=== PATIENT | female | born 1995 | race Caucasian/White ===

== ENCOUNTER 2018-03-27 19:05 | Emergency (ER) | payer OTHER ==
[2018-03-27] MEDS ORDERED: SODIUM CHLORIDE 0.9% 1,000 ML IV ONE (20:54)
[2018-03-27 21:09] LABS: Basophils % (A) 0 %; Eosinophils # (A) 0.1 k/uL (0-0.7); Eosinophils % (A) 2 %; HCT 42.1 % (34.0-46.0); HGB 14.3 gm/dL (11.4-16.0); Lymphocytes # (A) 2.7 k/uL (1.0-4.8); Lymphocytes % (A) 31 %; MCH 29.2 pg (25.0-35.0); MCHC 33.8 g/dL (31.0-37.0); MCV 86.3 fL (80.0-100.0); Mean Platelet Volume 6.9; Monocytes # (A) 0.5 k/uL (0-1.0); Monocytes % (A) 5 %; Neutrophils # (A) 5.5 k/uL (1.3-7.7); Neutrophils % (A) 61 %; Platelet Count 305 k/uL (150-450); RBC 4.88 m/uL (3.80-5.40); RDW 13.1 % (11.5-15.5)
--- NOTE | 2018-03-27 21:16 | ED ---
Abdominal Pain HPI - General Chief Complaint: OB/Uterine Contractions Stated Complaint: 5 weeks Time Seen by Provider: 03/27/18 20:01 Source: patient Mode of arrival: ambulatory Limitations: no limitations - History of Present Illness Initial Comments: 23-year-old female patient presents to emergency department today for evaluation of spotting, superpubic cramping, and low back pain. Patient states that she did have a positive test about one week ago. Patient states that her last menstrual period was 02/19/2018. States that she is A1, miscarriage in September 2017. Patient states that she has been having supra pubic cramping since she found out she was . States that the spotting started earlier today. States it is very light and on the toilet paper only when she wipes. She is having urinary frequency, but denies dysuria or urinary urgency. Patient denies any recent rash, fever, chills, shortness breath, chest pain, nausea, vomiting, diarrhea, constipation, back pain, numbness, tingling, dizziness, weakness, hematuria, dysuria, urinary urgency, urinary frequency, headache, visual changes, or any other complaints. - Related Data Home Medications Medication Instructions Recorded Confirmed Levothyroxine Sodium [Synthroid] 125 mcg PO DAILY 06/26/14 03/27/18 Cholecalciferol [Vitamin D3] 1,000 unit PO DAILY 03/27/18 03/27/18 [id number] Acid 1 cap PO DAILY 03/27/18 03/27/18 [-U Capsule (formulary)] Allergies Allergy/AdvReac Type Severity Reaction Status Date / Time No Known Allergies Allergy Verified 03/27/18 20:05 Review of Systems ROS Statement: Those systems with pertinent positive or pertinent negative responses have been documented in the HPI. ROS Other: All systems not noted in ROS Statement are negative. Past Medical History Past Medical History: Thyroid Disorder History of Any Multi-Drug Resistant Organisms: None Reported Past Surgical History: Appendectomy Past Psychological History: Depression Smoking Status: Never smoker Past Alcohol Use History: None Reported Past Drug Use History: None Reported General Exam Limitations: no limitations General appearance: alert, in no apparent distress, other (This is a well- developed, well-nourished adult female patient in no acute distress. Vital signs upon presentation are temperature 98.3F, pulse 81, respirations 16, blood pressure 146/89, pulse ox 100% on room air.) Eye exam: Present: normal appearance, PERRL, EOMI. Absent: scleral icterus, conjunctival injection, periorbital swelling ENT exam: Present: normal exam, normal oropharynx, mucous membranes moist Respiratory exam: Present: normal lung sounds bilaterally. Absent: respiratory distress, wheezes, rales, rhonchi, stridor Cardiovascular Exam: Present: regular rate, normal rhythm, normal heart sounds. Absent: systolic murmur, diastolic murmur, rubs, gallop, clicks GI/Abdominal exam: Present: soft, normal bowel sounds. Absent: distended, tenderness, guarding, rebound, rigid Neurological exam: Present: alert, oriented X3, CN II-XII intact Psychiatric exam: Present: normal affect, normal mood Skin exam: Present: warm, dry, intact, normal color. Absent: rash Course Vital Signs 03/27/18 03/27/18 03/27/18 19:30 22:10 22:35 Temperature 98.3 F 98.1 F Pulse Rate 81 77 Respiratory 16 17 Rate Blood Pressure 146/89 150/83 O2 Sat by Pulse 100 99 Oximetry Medical Decision Making - Medical Decision Making 23-year-old female patient presented to the emergency department today for complaints of suprapubic abdominal cramping, low back pain, and spotting. Physical examination was relatively unremarkable. Labs reviewed and showed a hCG of 95. Ultrasound was obtained and showed no intrauterine at this time. I did discuss results and findings with the patient. We did discuss and versus early versus ectopic as a cause for her symptoms. She'll be given a prescription to have repeat hCG performed. She'll be instructed to follow-up with Dr. Emery who she has established care with in the past. Return parameters were discussed in detail. She verbalizes understanding and agrees with this plan. - Lab Data Result diagrams: 03/27/18 20:55 03/27/18 20:55 Lab Results 03/27/18 03/27/18 03/27/18 Range/Units 20:54 20:55 20:55 WBC 9.0 (3.8-10.6) k/uL RBC 4.88 (3.80-5.40) m/uL Hgb 14.3 (11.4-16.0) gm/dL Hct 42.1 (34.0-46.0) % MCV 86.3 (80.0-100.0) fL MCH 29.2 (25.0-35.0) pg MCHC 33.8 (31.0-37.0) g/dL RDW 13.1 (11.5-15.5) % Plt Count 305 (150-450) k/uL Neutrophils % 61 % Lymphocytes % 31 % Monocytes % 5 % Eosinophils % 2 % Basophils % 0 % Neutrophils # 5.5 (1.3-7.7) k/uL Lymphocytes # 2.7 (1.0-4.8) k/uL Monocytes # 0.5 (0-1.0) k/uL Eosinophils # 0.1 (0-0.7) k/uL Basophils # 0.0 (0-0.2) k/uL Sodium (137-145) mmol/L Potassium (3.5-5.1) mmol/L Chloride (98-107) mmol/L Carbon Dioxide (22-30) mmol/L Anion Gap mmol/L BUN (7-17) mg/dL Creatinine (0.52-1.04) mg/dL Est GFR (CKD-EPI)AfAm (>60 ml/min/1.73 sqM) Est GFR (CKD-EPI)NonAf (>60 ml/min/1.73 sqM) Glucose (74-99) mg/dL Calcium (8.4-10.2) mg/dL Total Bilirubin (0.2-1.3) mg/dL AST (14-36) U/L ALT (9-52) U/L Alkaline Phosphatase (38-126) U/L Total Protein (6.3-8.2) g/dL Albumin (3.5-5.0) g/dL HCG, Quant mIU/mL Urine Color Urine Appearance (Clear) Urine pH (5.0-8.0) Ur Specific [place] (1.001-1.035) Urine Protein (Negative) Urine Glucose (UA) (Negative) Urine Ketones (Negative) Urine Blood (Negative) Urine Nitrite (Negative) Urine Bilirubin (Negative) Urine Urobilinogen (<2.0) mg/dL Ur Leukocyte Esterase (Negative) Blood Type O Positive Blood Type Confirm O Positive Blood Type Recheck CABO Indicated 03/27/18 03/27/18 Range/Units 20:55 22:05 WBC (3.8-10.6) k/uL RBC (3.80-5.40) m/uL Hgb (11.4-16.0) gm/dL Hct (34.0-46.0) % MCV (80.0-100.0) fL MCH (25.0-35.0) pg MCHC (31.0-37.0) g/dL RDW (11.5-15.5) % Plt Count (150-450) k/uL Neutrophils % % Lymphocytes % % Monocytes % % Eosinophils % % Basophils % % Neutrophils # (1.3-7.7) k/uL Lymphocytes # (1.0-4.8) k/uL Monocytes # (0-1.0) k/uL Eosinophils # (0-0.7) k/uL Basophils # (0-0.2) k/uL Sodium 139 (137-145) mmol/L Potassium 3.8 (3.5-5.1) mmol/L Chloride 105 (98-107) mmol/L Carbon Dioxide 22 (22-30) mmol/L Anion Gap 12 mmol/L BUN 12 (7-17) mg/dL Creatinine 0.61 (0.52-1.04) mg/dL Est GFR (CKD-EPI)AfAm >90 (>60 ml/min/1.73 sqM) Est GFR (CKD-EPI)NonAf >90 (>60 ml/min/1.73 sqM) Glucose 88 (74-99) mg/dL Calcium 9.5 (8.4-10.2) mg/dL Total Bilirubin 0.3 (0.2-1.3) mg/dL AST 32 (14-36) U/L ALT 38 (9-52) U/L Alkaline Phosphatase 70 (38-126) U/L Total Protein 7.5 (6.3-8.2) g/dL Albumin 4.4 (3.5-5.0) g/dL HCG, Quant 97.5 mIU/mL Urine Color Yellow Urine Appearance Clear (Clear) Urine pH 6.5 (5.0-8.0) Ur Specific [place] 1.018 (1.001-1.035) Urine Protein Negative (Negative) Urine Glucose (UA) Negative (Negative) Urine Ketones Negative (Negative) Urine Blood Negative (Negative) Urine Nitrite Negative (Negative) Urine Bilirubin Negative (Negative) Urine Urobilinogen <2.0 (<2.0) mg/dL Ur Leukocyte Esterase Negative (Negative) Blood Type Blood Type Confirm Blood Type Recheck - Radiology Data Radiology results: report reviewed, image reviewed Ultrasound obtained, report was reviewed in its entirety. Impression by Dr. Gallagher shows no adnexal mass or free fluid. No evidence of a gestational sac. No intrauterine seen at this time. Disposition Clinical Impression: Early stage of , Abdominal pain during , Threatened miscarriage Disposition: HOME SELF-CARE Condition: Good Instructions: Threatened Miscarriage (ED), Abdominal Pain in (ED), First Trimester Vaginal Bleed (ED) Additional Instructions: Follow-up with your [facility] for recheck as soon as possible. Increase fluids. Return here immediately for any new, worsening, or concerning symptoms. Is patient prescribed a controlled substance at d/c from ED?: No Referrals: Lynn Carranza MD [Primary Care Provider] - 1-2 days Time of Disposition: 22:23
[2018-03-27 21:18] LABS: ALT 38 U/L (9-52); AST 32 U/L (14-36); Albumin 4.4 g/dL (3.5-5.0); Alkaline Phosphatase 70 U/L (38-126); Anion Gap 12 mmol/L; Blood Urea Nitrogen 12 mg/dL (7-17); Calcium 9.5 mg/dL (8.4-10.2); Carbon Dioxide 22 mmol/L (22-30); Chloride 105 mmol/L (98-107); Glucose 88 mg/dL (74-99); Potassium 3.8 mmol/L (3.5-5.1); Sodium 139 mmol/L (137-145); Total Bilirubin 0.3 mg/dL (0.2-1.3); Total Protein 7.5 g/dL (6.3-8.2)
[2018-03-27 21:34] LABS: HCG,Quantitative Serum 97.5 mIU/mL
--- NOTE | 2018-03-27 21:47 | US ---
EXAMINATION TYPE: Transabdominal DATE OF EXAM: 11/19/17 COMPARISON: NONE CLINICAL HISTORY: Pain. Cramping and spotting EXAM PERFORMED: Transabdominal (TA) EXAM MEASUREMENTS: GESTATIONAL AGE / DATING Physician Established: Not yet established Dates by LMP: (5 weeks/1 days) EDC: 11/26/2018 Dates by First Scan: No previous this is first scan Dates by Current Scan for: No IUP seen at this time MATERNAL ANATOMY Uterus: 10.3 x 4.8 x 4.7 cm Right Ovary: 2.7 x 1.8 x 2.3 cm Left Ovary: 2.4 x 1.9 x 2.6 cm Post CDS / Adnexa: wnl Presence of free fluid: no Presence of corpus luteal cyst: no GESTATION / SURVEY IUP: No IUP seen at this time No IUP seen at this time. IMPRESSION: No adnexal mass or free fluid. No evidence of a gestational sac.
[2018-03-27 22:11] LABS: Appearance,Urine Clear (Clear); Bilirubin,Urine Negative (Negative); Blood,Urine Negative (Negative); Color,Urine Yellow; Glucose,Urine (UA) Negative (Negative); Ketones,Urine Negative (Negative); Leukocyte Esterase,Urine Negative (Negative); Nitrite,Urine Negative (Negative); PH, Urine 6.5 (5.0-8.0); Protein,Urine Negative (Negative); Specific Gravity,Urine 1.018 (1.001-1.035); Urobilinogen,Urine <2.0 mg/dL (<2.0)
[2018-03-27 22:12] VITALS: BP 150/83; PULSE 77; RESP 17
[2018-03-27 22:36] VITALS: TEMP 98.1
== END 2018-03-27 22:45 | disposition home or self-care (01) ==
LOC: EC 19:05
DX: O20.0 Threatened abortion (principal); O99.89 Other specified diseases and conditions complicating pregnancy, childbirth and the puerperium; R35.0 Frequency of micturition; O99.281 Endocrine, nutritional and metabolic diseases complicating pregnancy, first trimester; E07.9 Disorder of thyroid, unspecified; Z3A.01 Less than 8 weeks gestation of pregnancy; Z79.899 Other long term (current) drug therapy
CPT/HCPCS: 36415; 76801; 80053; 81003; 84702; 85025; 86900; 86901; 96360; 99284

== ENCOUNTER → 2018-03-31 | Outpatient (CLI) | payer OTHER | END | disposition home or self-care (01) | LOC: LABWHC1 12:24 | PROVIDERS: ATTEND Obstetrics & Gynecology | DX: Z34.80 Encounter for supervision of other normal pregnancy, unspecified trimester (principal); Z3A.00 Weeks of gestation of pregnancy not specified | CPT/HCPCS: 36415; 84702 ==

== ENCOUNTER 2018-05-04 06:01 | Emergency (ER) | payer OTHER ==
[2018-05-04 06:40] LABS: Basophils % (A) 0 %; Eosinophils # (A) 0.2 k/uL (0-0.7); Eosinophils % (A) 2 %; HCT 42.4 % (34.0-46.0); HGB 13.7 gm/dL (11.4-16.0); Lymphocytes # (A) 2.5 k/uL (1.0-4.8); Lymphocytes % (A) 31 %; MCH 29.1 pg (25.0-35.0); MCHC 32.4 g/dL (31.0-37.0); MCV 89.8 fL (80.0-100.0); Mean Platelet Volume 6.5; Monocytes # (A) 0.4 k/uL (0-1.0); Monocytes % (A) 4 %; Neutrophils % (A) 61 %; Platelet Count 326 k/uL (150-450); RBC 4.73 m/uL (3.80-5.40); WBC 8.2 k/uL (3.8-10.6)
[2018-05-04 06:57] LABS: Anion Gap 8 mmol/L; Blood Urea Nitrogen 11 mg/dL (7-17); Calcium 9.8 mg/dL (8.4-10.2); Carbon Dioxide 24 mmol/L (22-30); Chloride 106 mmol/L (98-107); Glucose 97 mg/dL (74-99); Potassium 4.1 mmol/L (3.5-5.1); Sodium 138 mmol/L (137-145)
[2018-05-04 07:01] VITALS: BP 155/73; PULSE 79; RESP 16; TEMP 98.1
--- NOTE | 2018-05-04 07:03 | ED ---
General Adult HPI - General Chief complaint: Urogenital Stated complaint: Poss miscarriage Time Seen by Provider: 05/04/18 06:27 Source: patient Mode of arrival: ambulatory Limitations: no limitations - History of Present Illness Initial comments: Bre is a female currently 9 weeks who presents the ED today for evaluation of vaginal bleeding. Patient reports that she's been in her usual state of health, she had a transvaginal ultrasound at her OBs office last week which confirmed a single intrauterine at 8 weeks and 1 day. She reports that she's been doing well since that time. She has been experiencing daily nausea and mild vomiting. As well as persistent cramping throughout this which her OB has advised her is normal. Patient reports that she woke this morning and passed a small blood clot. She reports she's had only minimal bleeding. She it was not enough to even wear a menstrual pad. However, considering her history of miscarriage she became very anxious and decided to come to the ER for evaluation. She reports that she was last sexually active 2 days ago. She has no concern for sexual transmitted infection. - Related Data Home Medications Medication Instructions Recorded Confirmed Levothyroxine Sodium [Synthroid] 125 mcg PO DAILY 06/26/14 03/27/18 Cholecalciferol [Vitamin D3] 1,000 unit PO DAILY 03/27/18 03/27/18 [id number] Acid 1 cap PO DAILY 03/27/18 03/27/18 [-U Capsule (formulary)] Allergies Allergy/AdvReac Type Severity Reaction Status Date / Time No Known Allergies Allergy Verified 05/04/18 06:06 Review of Systems ROS Statement: Those systems with pertinent positive or pertinent negative responses have been documented in the HPI. ROS Other: All systems not noted in ROS Statement are negative. Past Medical History Past Medical History: Thyroid Disorder History of Any Multi-Drug Resistant Organisms: None Reported Past Surgical History: Appendectomy Past Psychological History: Depression Smoking Status: Never smoker Past Alcohol Use History: None Reported Past Drug Use History: None Reported General Exam - General Exam Comments Initial Comments: GENERAL: Patient is well-developed and well-nourished. Patient is nontoxic and well- hydrated and is in no distress. Obese HENT: Normocephalic, Atraumatic. EYES: The sclera were anicteric and conjunctiva were pink and moist. Extraocular movements were intact and pupils were equal round and reactive to light. Eyelids were unremarkable. PULMONARY: Unlabored respirations. Good breath sounds bilaterally. No audible rales rhonchi or wheezing was noted. CARDIOVASCULAR: There is a regular rate and rhythm without any murmurs gallops or rubs. ABDOMEN: Soft and nontender with normal bowel sounds. SKIN: Skin is clear with no lesions or rashes and otherwise unremarkable. : Normal external vaginal exam, vaginal canal with no injury lacerations or bleeding, cervical os is closed. There are small blood clots within the vaginal canal. No active bleeding was noted NEUROLOGIC: Patient is alert and oriented x3. Cranial nerves II through XII are grossly intact. Motor and sensory are also intact. Normal speech, volume and content. Symmetrical smile. MUSCULOSKELETAL: Normal extremities with adequate strength and full range of motion. No lower extremity swelling or edema. No calf tenderness. LYMPHATICS: No significant lymphadenopathy is noted PSYCHIATRIC: Normal psychiatric evaluation. Limitations: no limitations Limitations: no limitations Course Vital Signs 05/04/18 05/04/18 06:04 06:59 Temperature 98.3 F 98.1 F Pulse Rate 100 79 Respiratory 24 16 Rate Blood Pressure 142/90 155/73 O2 Sat by Pulse 96 98 Oximetry Medical Decision Making - Medical Decision Making Patient was seen and evaluated, history is obtained from the patient Patient 9 weeks with small amount of vaginal bleeding Pelvic exam reveals dark blood and vaginal vault, no active bleeding, cervix is closed Bedside ultrasound confirms a single intrauterine fetus, cardiac activity was visible - the patient her significant other and her mother were able to see the fetus and hear the heartbeat on ultrasound Considering the patient had a transvaginal ultrasound which revealed no evidence of ectopic as well as a single intrauterine last week I have no concern for ectopic . The patient's not having any pain or discomfort. Pelvic exam reveals a closed cervix and bedside ultrasound reveals a fetus with a heart rate. I advised the patient to maintain pelvic rest, no more sexual activity. Follow- up with Dr. Emery on Saturday for reevaluation. All questions pertaining to care were answered best my ability patient was discharged home in stable condition. Return parameters were discussed and the patient was discharged home. - Lab Data Result diagrams: 05/04/18 06:25 Lab Results 09/16/18 09/16/18 09/16/18 Range/Units 06:25 06:25 06:54 WBC 8.2 (3.8-10.6) k/uL RBC 4.73 (3.80-5.40) m/uL Hgb 13.7 (11.4-16.0) gm/dL Hct 42.4 (34.0-46.0) % MCV 89.8 (80.0-100.0) fL MCH 29.1 (25.0-35.0) pg MCHC 32.4 (31.0-37.0) g/dL RDW 13.0 (11.5-15.5) % Plt Count 326 (150-450) k/uL Neutrophils % 61 % Lymphocytes % 31 % Monocytes % 4 % Eosinophils % 2 % Basophils % 0 % Neutrophils # 5.0 (1.3-7.7) k/uL Lymphocytes # 2.5 (1.0-4.8) k/uL Monocytes # 0.4 (0-1.0) k/uL Eosinophils # 0.2 (0-0.7) k/uL Basophils # 0.0 (0-0.2) k/uL Urine Color Yellow Urine Appearance Cloudy H (Clear) Urine pH 5.5 (5.0-8.0) Ur Specific [place] 1.018 (1.001-1.035) Urine Protein Negative (Negative) Urine Glucose (UA) Negative (Negative) Urine Ketones Negative (Negative) Urine Blood Large H (Negative) Urine Nitrite Negative (Negative) Urine Bilirubin Negative (Negative) Urine Urobilinogen <2.0 (<2.0) mg/dL Ur Leukocyte Esterase Negative (Negative) Urine RBC 1 (0-5) /hpf Urine WBC 1 (0-5) /hpf Ur Squamous Epith Cells 4 (0-4) /hpf Urine Bacteria Rare H (None) /hpf Urine Mucus Rare H (None) /hpf Blood Type O Positive Blood Type Recheck No Disposition Clinical Impression: Vaginal bleeding in patient at less than 20 weeks gestation Disposition: HOME SELF-CARE Condition: Good Instructions: Threatened Miscarriage (ED) Is patient prescribed a controlled substance at d/c from ED?: No Referrals: Lynn Carranza MD [Primary Care Provider] - 1-2 days Blanca Emery DO [Doctor of Osteopathic Medicine] - 1-2 days Time of Disposition: 07:16
[2018-05-04 07:08] LABS: Appearance,Urine Cloudy (Clear); Bacteria,Urine Rare /hpf; Bilirubin,Urine Negative (Negative); Blood,Urine Large (Negative); Color,Urine Yellow; Glucose,Urine (UA) Negative (Negative); Ketones,Urine Negative (Negative); Leukocyte Esterase,Urine Negative (Negative); Mucus,Urine Rare /hpf; Nitrite,Urine Negative (Negative); PH, Urine 5.5 (5.0-8.0); Protein,Urine Negative (Negative); RBC,Urine 1 /hpf (0-5); Specific Gravity,Urine 1.018 (1.001-1.035); Squamous Epithelial Cell,Urine 4 /hpf (0-4); Urobilinogen,Urine <2.0 mg/dL (<2.0); WBC,Urine 1 /hpf (0-5)
[2018-05-04 07:38] LABS: HCG,Quantitative Serum 49281.1 mIU/mL
== END 2018-05-04 07:22 | disposition home or self-care (01) ==
LOC: EC 06:01
DX: O20.9 Hemorrhage in early pregnancy, unspecified (principal); Z3A.09 9 weeks gestation of pregnancy
CPT/HCPCS: 36415; 80048; 81001; 84702; 85025; 86900; 86901; 99284

== ENCOUNTER 2018-09-03 15:08 | Outpatient (CLI) | payer OTHER ==
[2018-09-03 16:27] VITALS: BP 116/57; PULSE 86; RESP 16; TEMP 98.1
--- NOTE | 2018-09-03 23:13 | P.MSEPDOC ---
Presenting Problems - Arrival Data Date of Arrival on Unit: 09/03/18 Time of Arrival on Unit: 15:11 Mode of Transport: Ambulatory - Complaint Comment: lower abd pain Medical History - Information : 1 Para: 0 Term: 0 : 0 Abortions: Spontaneous or Elective: 0 Number of Living Children: 0 - Gestational Age Gestational Age by EM (wks/days): 27 Weeks and 2 Days Review of Systems - Review of Systems Constitutional: No problems Breast: No problems ENT: No problems Cardiovascular: No problems Respiratory: No problems Gastrointestinal: No problems Genitourinary: No problems Musculoskeletal: No problems Neurological: No problems Skin: No problems Vital Signs - Temperature Temperature: 98.1 F Temperature Source: Temporal Artery Scan - Pulse Right Brachial Pulse Rate: 86 Pulse Assessment Method: Automatic Cuff - Respirations Respiratory Rate: 16 Oxygen Delivery Method: Room Air - Blood Pressure Right Arm Blood Pressure: 116/57 Blood Pressure Mean: 76 Blood Pressure Source: Automatic Cuff Medical Screen Scoring (Pre) - Cervical Exam Dilation: Exam Deferred Effacement: Exam Deferred - Uterine Contractions Frequency: N/A Duration: N/A Intensity: N/A - Maternal Vital Signs Maternal Temperature: N/A Maternal Blood Pressure: N/A Signs of Preeclampsia: N/A Maternal Respirations: N/A - Pain Assessment Pain Scale Used: Numeric (1 - 10) Pain Intensity: 4 - Assessment Heart Rate - NICHD Category: Category I (Normal) = 0 NST: Reactive Position: N/A, Non-vertex & not laboring = 3 - Total Score Total Score (Pre): 3 - Level of Risk Level of Risk: Low (0-5) Physician Notification (Pre) - Physician Notified Physician Notified Date: 09/03/18 Physician Notified Time: 15:55 Physician/Practitioner Notifed:: ofelia Spoke With: ofelia New Order Received: Yes - Notification Comment Comment: discharge home with instruction on comfort measures r/t discomforts of Disposition - Disposition OB Disposition: Discharge to home Discharge Date: 09/03/18 Discharge Time: 15:59 I agree with the RN Medical Screening Exam: Yes Physician's MSE Comment: round ligament pain. I sent pt over after she called the office due to decreased movement. When she came to triage, she said she was feeling baby move but having pain in her bilateral groin, worse with walking and standing. Risk & Benefit of care provided described in d/c instruction: Yes Diagnosis: OTHER SPECIFIED COMPLICATIONS OF LABOR AND DELIVERY
== END 2018-09-03 15:59 | disposition home or self-care (01) ==
LOC: FBPOP 15:08
PROVIDERS: ATTEND Obstetrics & Gynecology
DX: O75.89 Other specified complications of labor and delivery (principal); Z3A.27 27 weeks gestation of pregnancy
CPT/HCPCS: 99213

== ENCOUNTER 2018-11-13 11:06 | Outpatient (CLI) | payer OTHER ==
[2018-11-13 13:18] VITALS: BP 130/86; PULSE 86; RESP 18; TEMP 97.8
--- NOTE | 2018-11-17 10:00 | P.MSEPDOC ---
Presenting Problems - Arrival Data Date of Arrival on Unit: 11/13/18 Time of Arrival on Unit: 11:05 Mode of Transport: Wheelchair - Complaint OB-Reason for Admission/Chief Complaint: Possible Onset of Labor Comment: pt c/o contractions Medical History - Information : 2 Para: 0 Term: 0 : 0 Abortions: Spontaneous or Elective: 1 Number of Living Children: 0 - Gestational Age Gestational Age by EM (wks/days): 37 Weeks and 0 Days Review of Systems - Review of Systems Constitutional: No problems Breast: No problems ENT: No problems Cardiovascular: No problems Respiratory: No problems Gastrointestinal: No problems Genitourinary: No problems Musculoskeletal: No problems Neurological: No problems Skin: No problems Vital Signs - Temperature Temperature: 97.8 F Temperature Source: Temporal Artery Scan - Pulse Right Brachial Pulse Rate: 86 Pulse Assessment Method: Automatic Cuff - Respirations Respiratory Rate: 18 Oxygen Delivery Method: Room Air O2 Sat by Pulse Oximetry: 100 - Blood Pressure Right Arm Blood Pressure: 130/86 Blood Pressure Mean: 100 Blood Pressure Source: Automatic Cuff Medical Screen Scoring (Pre) - Cervical Exam Dilation: 1-3 cm = 1 Effacement: Exam Deferred Membranes: Intact - Uterine Contractions Frequency: > or = 36 weeks =2 Duration: N/A Intensity: N/A - Maternal Vital Signs Maternal Temperature: N/A Maternal Blood Pressure: N/A Signs of Preeclampsia: N/A Maternal Respirations: N/A - Pain Assessment Pain Scale Used: Numeric (1 - 10) Pain Intensity: 5 Pain Management Goal: 2 Pain Description: *Acute, Cramping, Pressure, Tightness Pain Radiation Location: none Pain Frequency: Intermittent Pain Duration: 2 Pain Duration Units: Hours Pain Behavior: None Exhibited, Vocalization Pain Aggravating Factors: Contractions - Maternal Trauma Maternal Trauma: N/A - Assessment Baseline FHR: 135 Heart Rate - NICHD Category: Category I (Normal) = 0 NST: Reactive Position: N/A Station: N/A - Total Score Total Score (Pre): 3 - Level of Risk Level of Risk: Low (0-5) Physician Notification (Pre) - Physician Notified Physician Notified Date: 11/13/18 Physician Notified Time: 12:30 Physician/Practitioner Notifed:: Dr. Emery Spoke With: Dr. Emery New Order Received: Yes - Notification Comment Comment: discharge pt home, follow up at next scheduled appt Disposition - Disposition OB Disposition: Triage, Discharge to home, Written follow up instructions reviewed Discharge Date: 11/13/18 Discharge Time: 12:40 I agree with the RN Medical Screening Exam: Yes Risk & Benefit of care provided described in d/c instruction: Yes Diagnosis: FALSE LABOR BEFORE 37 COMPLETED WEEKS OF GEST, SECOND TRI
== END 2018-11-13 12:40 | disposition home or self-care (01) ==
LOC: FBPOP 11:06
PROVIDERS: ATTEND Obstetrics & Gynecology
DX: O47.1 False labor at or after 37 completed weeks of gestation (principal); Z3A.37 37 weeks gestation of pregnancy
CPT/HCPCS: 59025; G0463; 99213

== ENCOUNTER 2018-11-16 06:31 | Outpatient (CLI) | payer OTHER ==
[2018-11-16 07:07] VITALS: BP 137/81; PULSE 73; RESP 18; TEMP 98.2
--- NOTE | 2018-11-17 07:18 | P.MSEPDOC ---
Presenting Problems - Arrival Data Date of Arrival on Unit: 11/16/18 Time of Arrival on Unit: 06:31 Mode of Transport: Wheelchair - Complaint OB-Reason for Admission/Chief Complaint: Possible Onset of Labor Comment: contractions 5 min apart since 414 Medical History - Information : 2 Para: 0 Term: 0 : 0 Abortions: Spontaneous or Elective: 1 Number of Living Children: 0 - Gestational Age Gestational Age by EM (wks/days): 37 Weeks and 3 Days Review of Systems - Review of Systems Constitutional: No problems Breast: No problems ENT: No problems Cardiovascular: No problems Respiratory: No problems Gastrointestinal: No problems Genitourinary: No problems Musculoskeletal: No problems Neurological: No problems Skin: No problems Vital Signs - Temperature Temperature: 98.2 F Temperature Source: Temporal Artery Scan - Pulse Right Brachial Pulse Rate: 73 - Respirations Respiratory Rate: 18 Oxygen Delivery Method: Room Air O2 Sat by Pulse Oximetry: 99 - Blood Pressure Right Arm Blood Pressure: 137/81 Blood Pressure Mean: 99 Blood Pressure Source: Automatic Cuff Medical Screen Scoring (Pre) - Cervical Exam Dilation: 1-3 cm = 1 Membranes: Intact - Uterine Contractions Frequency: > or = 36 weeks =2 Duration: > 40 seconds = 2 - Maternal Vital Signs Maternal Temperature: N/A Maternal Blood Pressure: N/A Signs of Preeclampsia: N/A Maternal Respirations: N/A - Pain Assessment Pain Location and Character: Abdomen Pain Scale Used: Numeric (1 - 10) Pain Intensity: 5 Pain Description: *Acute, Tightness Pain Frequency: Intermittent Pain Duration: 2 Pain Duration Units: Hours Pain Behavior: None Exhibited Pain Aggravating Factors: Contractions - Maternal Trauma Maternal Trauma: N/A - Assessment Baseline FHR: 125 Heart Rate - NICHD Category: Category I (Normal) = 0 NST: Reactive Position: N/A Station: N/A - Total Score Total Score (Pre): 5 - Level of Risk Level of Risk: Low (0-5) Physician Notification (Post) - Physician Notified Physician Notified Date: 11/16/18 Physician Notified Time: 07:15 Physician/Practitioner Notified:: moris Spoke With: moris New Order Received: Yes - Notification Comment Comment: pt to be monitored for one hour from first cervical exam, recheck cervix and pt may be discharged home with instruction if no change. call dr with any change. Disposition - Disposition OB Disposition: Discharge to home Discharge Date: 11/16/18 Discharge Time: 07:57 I agree with the RN Medical Screening Exam: Yes Risk & Benefit of care provided described in d/c instruction: Yes Diagnosis: FALSE LABOR AT OR AFTER 37 COMPLETED WEEKS OF GESTATION
== END 2018-11-16 08:14 | disposition home or self-care (01) ==
LOC: FBPOP 06:31
PROVIDERS: ATTEND Obstetrics & Gynecology
DX: O47.1 False labor at or after 37 completed weeks of gestation (principal); Z3A.37 37 weeks gestation of pregnancy
CPT/HCPCS: 59025; G0463; 99213

== ENCOUNTER 2018-11-18 14:13 | Inpatient (IN) | payer OTHER ==
[2018-11-18 15:22] LABS: ALT 13 U/L (9-52); AST 16 U/L (14-36); Blood Urea Nitrogen 7 mg/dL (7-17); LDH 403 U/L (313-618); Uric Acid 5.8 mg/dL (3.7-7.4)
[2018-11-18 15:23] LABS: Basophils % (A) 0 %; Eosinophils # (A) 0.1 k/uL (0-0.7); Eosinophils % (A) 1 %; HCT 36.1 % (34.0-46.0); Lymphocytes # (A) 1.1 k/uL (1.0-4.8); Lymphocytes % (A) 11 %; MCH 29.8 pg (25.0-35.0); MCHC 33.4 g/dL (31.0-37.0); MCV 89.4 fL (80.0-100.0); Mean Platelet Volume 7.4; Monocytes # (A) 0.5 k/uL (0-1.0); Monocytes % (A) 5 %; Neutrophils % (A) 82 %; Platelet Count 299 k/uL (150-450); RBC 4.03 m/uL (3.80-5.40); RDW 13.6 % (11.5-15.5); WBC 9.8 k/uL (3.8-10.6)
[2018-11-18 15:29] LABS: Appearance,Urine Cloudy (Clear); Bacteria,Urine Few /hpf; Bilirubin,Urine Negative (Negative); Blood,Urine Trace (Negative); Color,Urine Yellow; Glucose,Urine (UA) Negative (Negative); Ketones,Urine Negative (Negative); Leukocyte Esterase,Urine Large (Negative); Mucus,Urine Few /hpf; Nitrite,Urine Negative (Negative); Protein,Urine 1+ (Negative); RBC,Urine 3 /hpf (0-5); Specific Gravity,Urine 1.026 (1.001-1.035); Squamous Epithelial Cell,Urine 20 /hpf (0-4); Urobilinogen,Urine <2.0 mg/dL (<2.0); WBC,Urine 8 /hpf (0-5)
[2018-11-18 15:30] VITALS: BMI 58.6
[2018-11-18 15:47] LABS: INR 0.9 (<1.2); Partial Thromboplastin Time 27.2 sec (22.0-30.0); Prothrombin Time 9.4 sec (9.0-12.0)
[2018-11-18] MEDS ORDERED: ACETAMINOPHEN TAB 325 MG TAB PO STA (23:45)
[2018-11-19] MEDS ORDERED: CARBOPROST TROMETHAMINE 250 MCG/ML 1 ML AMP IM PRN (05:43)
[2018-11-19] MEDS ORDERED: LIDOCAINE 0.5% (PF) 5 MG/ML (50 ML SDV) SQ PRN (05:43)
[2018-11-19] MEDS ORDERED: METHYLERGONOVINE 0.2 MG/ML 1 ML AMP IM PRN (05:43)
[2018-11-19] MEDS ORDERED: OXYTOCIN 10 UNIT/ML 1 ML VIAL IM PRN (05:43)
[2018-11-19] MEDS ORDERED: TERBUTALINE 1 MG/ML VIAL SQ PRN (05:43)
[2018-11-19] MEDS ORDERED: OXYTOCIN 30 UNITS/500 ML NS 30 UNIT in SALINE 1 500ML.BAG IV SCH (05:45)
[2018-11-19] MEDS ORDERED: LACTATED RINGERS 1,000 ML IV SCH (05:45)
[2018-11-19] MEDS: LACTATED RINGERS 1,000 ML IV SCH (06:05)
[2018-11-19] MEDS ORDERED: ACETAMINOPHEN TAB 325 MG TAB PO STA (08:02)
[2018-11-19] MEDS ORDERED: ROPIVACAINE 5MG/ML 20ML VIAL ONE (11:41)
[2018-11-19] MEDS ORDERED: fentaNYL (PF) 50 MCG/ML 5 ML AMP ONE (11:41)
[2018-11-19] MEDS ORDERED: SODIUM CHLORIDE 0.9% 100 ML BAG ONE (11:41)
--- NOTE | 2018-11-19 16:40 | P.HPOB ---
History of Present Illness H&P Date: 11/19/18 Chief Complaint: GEstational hypertension 23-year-old presented to my office at 37 weeks and 5 days with elevated blood pressure. Her first pressure was 160/90, her second pressure was 150/100. I sent her to [facility] for admission and preeclamptic labs. The labs were all within normal limits. She was diagnosed with gestational hypertension and admitted for delivery considering she is over 37 weeks. heart tones 130 with moderate variability and reactive, category 1 tracing. Her cervix was 1 cm dilated, 80% effaced, and -3 station. Review of Systems All systems: negative Constitutional: Denies chills, Denies fever Eyes: denies blurred vision, denies pain Ears, nose, mouth and throat: Denies headache, Denies sore throat Cardiovascular: Denies chest pain, Denies shortness of breath Respiratory: Denies cough Gastrointestinal: Denies abdominal pain, Denies diarrhea, Denies nausea, Denies vomiting Genitourinary: Denies dysuria, Denies hematuria Musculoskeletal: Denies myalgias Integumentary: Denies pruritus, Denies rash Neurological: Denies numbness, Denies weakness Psychiatric: Denies anxiety, Denies depression Endocrine: Denies fatigue, Denies weight change Past Medical History Past Medical History: Thyroid Disorder Additional Past Medical History / Comment(s): Obstetric history: First was a spontaneous . This is her second . She's had care with me since 8 weeks gestation. Blood type is O+, and weighs negative, rubella nonimmune, RPR nonreactive, hepatitis B negative, HIV nonreactive. Her thyroid was not under control to beginning of the but I did increase her medication and it came down to normal. She had a normal maternity 21 but that also so that she was having a female baby, ultrasound said she is having a male fetus. GBS negative. History of Any Multi-Drug Resistant Organisms: None Reported Past Surgical History: Appendectomy Past Anesthesia/Blood Transfusion Reactions: No Reported Reaction Past Psychological History: Depression Smoking Status: Never smoker Past Alcohol Use History: None Reported Past Drug Use History: None Reported - Past Family History Mother Family Medical History: Hypertension, Thyroid Disorder Medications and Allergies Home Medications Medication Instructions Recorded Confirmed Type Levothyroxine Sodium [Synthroid] 50 mcg PO DAILY 06/26/14 11/18/18 History Cholecalciferol [Vitamin D3] 1,000 unit PO DAILY 03/27/18 11/18/18 History Fdk-Njih-Mufea Acid 1 cap PO DAILY 03/27/18 11/18/18 History [-U Capsule (formulary)] Allergies Allergy/AdvReac Type Severity Reaction Status Date / Time No Known Allergies Allergy Verified 11/18/18 14:40 Exam Osteopathic Statement: *. No significant issues noted on an osteopathic structural exam other than those noted in the History and Physical/Consult. Heart: Regular rate and rhythm Lungs: Clear to auscultation bilaterally Abdomen: Soft, nontender Extremities: Negative Homans sign, reflexes 2+ Results Result Diagrams: 11/18/18 14:55 11/18/18 14:55 Assessment and Plan (1) Gestational hypertension Current Visit: Yes Status: Acute Code(s): O13.9 - GESTATIONAL HTN W/O SIGNIFICANT PROTEINURIA, UNSP TRIMESTER SNOMED Code(s): 420731859 (2) 37 weeks gestation of Current Visit: Yes Status: Acute Code(s): Z3A.37 - 37 WEEKS GESTATION OF SNOMED Code(s): 52953351 Plan: 1. Admit to [facility] 2. Planned induction of labor with amniotomy and Pitocin. 3. Monitor blood pressure closely
--- NOTE | 2018-11-19 16:42 | P.PROBDLV ---
Vaginal Delivery Note - . Vaginal Delivery Note: 23-year-old presented to my office at 37 weeks and 5 days with elevated blood pressure. Her first pressure was 160/90, her second pressure was 150/100. I sent her to [facility] for admission and preeclamptic labs. The labs were all within normal limits. She was diagnosed with gestational hypertension and admitted for delivery considering she is over 37 weeks. heart tones 130 with moderate variability and reactive, category 1 tracing. Her cervix was 1 cm dilated, 80% effaced, and -3 station. Pitocin was started, amniotomy was performed at 7:51 AM and clear fluid noted. When she was 3 cm dilated she did get an epidural. Her cervix was completely dilated at 1611. She pushed, and delivered a viable male infant over intact perineum under epidural anesthesia at 1618. Head delivered OA, nuchal cord 1 easily reduced, anterior shoulder delivered gentle downward guidance followed by posterior shoulder and rest of body. Nose and mouth bulb suctioned, cord clamped and cut, placed on mother's abdomen. Apgars 8, 9, weight 6 lbs. 2 oz. Placenta delivered spontaneously, intact with three-vessel cord at 1621. Vagina, cervix, perineum inspected. Small right labial laceration was repaired with 3-0 Vicryl. Estimated blood loss 200 mL. Mother and baby in stable condition.
[2018-11-19] MEDS ORDERED: diphenhydrAMINE 25 MG CAP PO PRN (18:35)
[2018-11-19] MEDS ORDERED: WITCH HAZEL 1 EACH MED..PAD TOPICAL PRN (18:35)
[2018-11-19] MEDS ORDERED: LANOLIN CREAM 5 GM TUBE TOPICAL PRN (18:35)
[2018-11-19] MEDS ORDERED: diphenhydrAMINE 50 MG CAP PO PRN (18:35)
[2018-11-19] MEDS ORDERED: BENZOCAINE/MENTHOL SPRAY 1 GM/SPRAY AEROSOL TOPICAL PRN (18:35)
[2018-11-19] MEDS ORDERED: SIMETHICONE 80 MG CHEWABLE PO PRN (18:35)
[2018-11-19] MEDS ORDERED: ZOLPIDEM 5 MG TAB PO PRN (18:35)
[2018-11-19] MEDS ORDERED: diphenhydrAMINE 50 MG/ML 1 ML VIAL IVP PRN ×2 (18:35)
[2018-11-20] MEDS: IBUPROFEN 600 MG TAB PO PRN ×3 (01:11→18:17)
[2018-11-20] MEDS: SENNOSIDES-DOCUSATE SODIUM 1 EACH TAB PO SCH ×3 (01:12→21:48)
[2018-11-20 07:39] LABS: Basophils % (A) 0 %; Eosinophils # (A) 0.1 k/uL (0-0.7); Eosinophils % (A) 1 %; HCT 31.9 % (34.0-46.0); HGB 10.8 gm/dL (11.4-16.0); Lymphocytes # (A) 1.7 k/uL (1.0-4.8); Lymphocytes % (A) 18 %; MCH 29.9 pg (25.0-35.0); MCHC 33.7 g/dL (31.0-37.0); MCV 88.5 fL (80.0-100.0); Mean Platelet Volume 7.9; Monocytes # (A) 0.7 k/uL (0-1.0); Monocytes % (A) 7 %; Neutrophils % (A) 73 %; Platelet Count 269 k/uL (150-450); RDW 14.2 % (11.5-15.5); WBC 9.6 k/uL (3.8-10.6)
--- NOTE | 2018-11-20 09:07 | P.PNOBGVD ---
Subjective - Subjective Principal diagnosis: S/P NVD PPD #1 Interval history: Patient seen and examined. Denies nausea, vomiting, chest pain, shortness of breath or calf pain. Patient reports: Reports appetite normal, Reports voiding normally, Reports pain well controlled, Reports ambulating normally : doing well Objective - Latest Vital Signs Latest vital signs: Vital Signs Temp Pulse Resp BP 11/20/18 07:43 98.3 F 73 16 111/78 11/20/18 03:41 84 16 111/70 11/20/18 00:00 73 16 128/73 11/19/18 20:00 98.5 F 88 14 126/61 11/19/18 18:42 99.1 F 98 14 125/58 11/19/18 18:18 99 16 138/72 11/19/18 17:48 92 14 137/70 11/19/18 17:26 101 H 16 129/75 11/19/18 17:18 81 14 133/70 11/19/18 17:02 97 14 130/72 11/19/18 16:48 97.5 F L 90 14 129/71 Intake and Output 11/19/18 11/20/18 11/20/18 22:59 06:59 14:59 Other: # Voids 1 - Exam Lungs: bilateral: normal Chest: Normal S1, Normal S2 Extremities: Present: normal Abdomen: Present: normal appearance, soft Uterus: Present: normal, firm - Labs Labs: Abnormal Lab Results - Last 24 Hours (Table) 11/20/18 Range/Units 07:10 RBC 3.60 L (3.80-5.40) m/uL Hgb 10.8 L (11.4-16.0) gm/dL Hct 31.9 L (34.0-46.0) % Assessment and Plan (1) Gestational hypertension Current Visit: Yes Status: Acute Code(s): O13.9 - GESTATIONAL HTN W/O SIGNIFICANT PROTEINURIA, UNSP TRIMESTER SNOMED Code(s): 187138001 (2) 37 weeks gestation of Current Visit: Yes Status: Resolved Code(s): Z3A.37 - 37 WEEKS GESTATION OF SNOMED Code(s): 20034345 (3) Status post normal vaginal delivery Current Visit: Yes Status: Acute Code(s): QST4359 - SNOMED Code(s): 759102007 Plan: 1. Continue care
[2018-11-20] MEDS: ACETAMINOPHEN TAB 325 MG TAB PO PRN (13:10)
[2018-11-20] MEDS ORDERED: MEASLES-MUMPS-RUBELLA VACC/PF 12,500 UNIT/0.5 ML VIAL SQ ONE (13:51)
[2018-11-20] MEDS: LACTATED RINGERS 1,000 ML IV SCH (21:49)
[2018-11-21] MEDS: IBUPROFEN 600 MG TAB PO PRN ×2 (00:27→08:15)
[2018-11-21 08:31] VITALS: BP 134/81; PULSE 86; RESP 17; TEMP 98.3
[2018-11-21] MEDS: SENNOSIDES-DOCUSATE SODIUM 1 EACH TAB PO SCH (11:57)
--- NOTE | 2018-11-21 12:32 | P.DS ---
Providers Date of admission: 11/18/18 14:13 Expected date of discharge: 11/21/18 Attending physician: Blanca Emery Primary care physician: Stated None - Discharge Diagnosis(es) (1) Gestational hypertension Current Visit: Yes Status: Acute (2) 37 weeks gestation of Current Visit: Yes Status: Resolved (3) Status post normal vaginal delivery Current Visit: Yes Status: Acute Hospital Course: Patient presented for induction of labor. She underwent a normal vaginal delivery. Her course was uncomplicated. She'll be discharged home day #2 in stable condition to follow-up with me in 6 weeks. Plan - Discharge Summary New Discharge Prescriptions: New Ibuprofen [Motrin] 600 mg PO Q6HR PRN #30 tab PRN Reason: Mild Pain Or Fever >= 100.5 No Action Levothyroxine Sodium [Synthroid] 50 mcg PO DAILY Fkg-Snbk-Bfxcj Acid [-U Capsule (formulary)] 1 cap PO DAILY Cholecalciferol [Vitamin D3] 1,000 unit PO DAILY Discharge Medication List Levothyroxine Sodium [Synthroid] 50 mcg PO DAILY 06/26/14 [History] Cholecalciferol [Vitamin D3] 1,000 unit PO DAILY 03/27/18 [History] Lar-Nryu-Klhfs Acid [-U Capsule (formulary)] 1 cap PO DAILY 03/27/18 [History] Ibuprofen [Motrin] 600 mg PO Q6HR PRN #30 tab 11/21/18 [Rx] Follow up Appointment(s)/Referral(s): Blanca Emery DO [Doctor of Osteopathic Medicine] - 6 Weeks Discharge Disposition: HOME SELF-CARE
[2018-11-21] MEDS: ACETAMINOPHEN TAB 325 MG TAB PO PRN (12:58)
== END 2018-11-21 15:40 | disposition home or self-care (01) | DRG 807 ==
LOC: 4FBP 14:13
PROVIDERS: ADMIT Obstetrics & Gynecology; ATTEND Obstetrics & Gynecology
PROC: 10E0XZZ Delivery of Products of Conception, External Approach (ICD-10-PCS; principal; 2018-11-19)
PROC: 3E033VJ Introduction of Other Hormone into Peripheral Vein, Percutaneous Approach (ICD-10-PCS; 2018-11-19)
PROC: 10907ZC Drainage of Amniotic Fluid, Therapeutic from Products of Conception, Via Natural or Artificial Opening (ICD-10-PCS; 2018-11-19)
PROC: 3E0S3BZ Introduction of Anesthetic Agent into Epidural Space, Percutaneous Approach (ICD-10-PCS; 2018-11-19)
PROC: 0HQ9XZZ Repair Perineum Skin, External Approach (ICD-10-PCS; 2018-11-19)
PROC: 3E0134Z Introduction of Serum, Toxoid and Vaccine into Subcutaneous Tissue, Percutaneous Approach (ICD-10-PCS; 2018-11-20)
DX: O13.4 Gestational [pregnancy-induced] hypertension without significant proteinuria, complicating childbirth (principal); Z37.0 Single live birth; O70.0 First degree perineal laceration during delivery; Z3A.37 37 weeks gestation of pregnancy; K21.9 Gastro-esophageal reflux disease without esophagitis; E07.9 Disorder of thyroid, unspecified; O69.81X0 Labor and delivery complicated by cord around neck, without compression, not applicable or unspecified; Z23 Encounter for immunization; Z79.890 Hormone replacement therapy; Z79.899 Other long term (current) drug therapy; Z90.49 Acquired absence of other specified parts of digestive tract; Z86.59 Personal history of other mental and behavioral disorders; Z87.59 Personal history of other complications of pregnancy, childbirth and the puerperium; Z82.49 Family history of ischemic heart disease and other diseases of the circulatory system; Z83.49 Family history of other endocrine, nutritional and metabolic diseases
CPT/HCPCS: 81001; 82565; 82570; 83615; 84156; 84450; 84460; 84520; 84550; 85025; 85610; 85730; 88307; 90471; 90707

== ENCOUNTER 2018-12-01 22:27 | Emergency (ER) | payer OTHER ==
[2018-12-01 22:35] VITALS: RESP 18
[2018-12-01] MEDS ORDERED: SODIUM CHLORIDE 0.9% 1,000 ML IV ONE (22:43)
--- NOTE | 2018-12-01 23:01 | ED ---
General Adult HPI - General Chief complaint: Dizziness Stated complaint: High BP Time Seen by Provider: 12/01/18 22:42 Source: patient Mode of arrival: ambulatory Limitations: no limitations - History of Present Illness Initial comments: Bre is a pleasant 23-year-old female currently 2 weeks who presents to the emergency department today for evaluation of lightheadedness and hypertension. Patient reports that this evening she was sitting on the couch she began feeling weird she felt somewhat of a headache she checked her blood pressure and noted that it was 170/100 given that she been advised to be evaluated for any hypertension she decided to come the emergency department for evaluation. denies any recent fevers, chills, nausea, vomiting chest pain or shortness of breath. She reports a vague dizziness or lightheadedness sensation but no headache or vision changes no focal neurologic deficits. - Related Data Home Medications Medication Instructions Recorded Confirmed Levothyroxine Sodium [Synthroid] 50 mcg PO DAILY 06/26/14 11/18/18 Cholecalciferol [Vitamin D3] 1,000 unit PO DAILY 03/27/18 11/18/18 Cdo-Rpqx-Qqbqd Acid 1 cap PO DAILY 03/27/18 11/18/18 [-U Capsule (formulary)] Previous Rx's Medication Instructions Recorded RX: Ibuprofen [Motrin] 600 mg PO Q6HR PRN #30 tab 11/21/18 Allergies Allergy/AdvReac Type Severity Reaction Status Date / Time No Known Allergies Allergy Verified 12/01/18 22:35 Review of Systems ROS Statement: Those systems with pertinent positive or pertinent negative responses have been documented in the HPI. ROS Other: All systems not noted in ROS Statement are negative. Past Medical History Past Medical History: Thyroid Disorder Additional Past Medical History / Comment(s): Obstetric history: First was a spontaneous . This is her second . She's had care with me since 8 weeks gestation. Blood type is O+, and weighs negative, rubella nonimmune, RPR nonreactive, hepatitis B negative, HIV nonreactive. Her thyroid was not under control to beginning of the but I did increase her medication and it came down to normal. She had a normal maternity 21 but that also so that she was having a female baby, ultrasound said she is having a male fetus. GBS negative. History of Any Multi-Drug Resistant Organisms: None Reported Past Surgical History: Appendectomy Past Anesthesia/Blood Transfusion Reactions: No Reported Reaction Past Psychological History: Anxiety, Depression Smoking Status: Never smoker Past Alcohol Use History: None Reported Past Drug Use History: None Reported - Past Family History Mother Family Medical History: Hypertension, Thyroid Disorder General Exam - General Exam Comments Initial Comments: Physical Exam GENERAL: Patient is well-developed and well-nourished morbidly obese female Patient is nontoxic and well-hydrated and is in no distress. HENT: Normocephalic, Atraumatic. EYES: PERRL, EOMI PULMONARY: Unlabored respirations. No audible rales rhonchi or wheezing was noted. CARDIOVASCULAR: There is a regular rate and rhythm without any murmurs gallops or rubs. ABDOMEN: Soft and nontender with normal bowel sounds. SKIN: Skin is clear with no lesions or rashes and otherwise unremarkable. : Deferred NEUROLOGIC: Patient is alert and oriented x3. Moving all extremities spontaneously MUSCULOSKELETAL: Normal extremities with adequate strength and full range of motion. No lower extremity swelling or edema. No calf tenderness. PSYCHIATRIC: Normal psychiatric evaluation. Limitations: no limitations Limitations: no limitations Course Vital Signs 12/01/18 12/01/18 12/02/18 22:32 23:22 00:00 Temperature 98.4 F 97.5 F L Pulse Rate 66 59 L 63 Respiratory 18 18 18 Rate Blood Pressure 161/97 153/94 168/76 O2 Sat by Pulse 98 97 98 Oximetry Medical Decision Making - Medical Decision Making The patient was seen and evaluated history was obtained from the patient and review of medical record and signed this is a 23-year-old obese female currently 2 weeks presenting with lightheadedness and hypertension. Upon arrival patient did have a blood pressure 168/91 she reported a higher blood pressure home. Patient was evaluated during her for hypertension but never developed any true preeclampsia. Labs were ordered, IV fluids were ordered Labs were reviewed, CBC with no significant abnormality CMP does reveal an AST of 50 Urinalysis with no signs of proteinuria Patient's blood pressure is improving with IV fluids upon reevaluation her blood pressure has decreased to 150/94 she is resting comfortably Patient care was discussed with her software design engineer Dr. Emery, vital signs and lab and things were discussed, Dr. Emery plans to reevaluate the patient later this week in office for a blood pressure check Plan was discussed with the patient was agreeable with the plan for discharge home and outpatient follow-up. All questions pertaining to care were answered to the best my ability return parameters were discussed and the patient was discharged home in stable condition. - Lab Data Result diagrams: 12/01/18 23:10 12/01/18 23:10 Lab Results 12/01/18 12/01/18 12/01/18 Range/Units 23:10 23:10 23:10 WBC 6.7 (3.8-10.6) k/uL RBC 4.49 (3.80-5.40) m/uL Hgb 13.4 (11.4-16.0) gm/dL Hct 39.4 (34.0-46.0) % MCV 87.8 (80.0-100.0) fL MCH 29.8 (25.0-35.0) pg MCHC 33.9 (31.0-37.0) g/dL RDW 13.7 (11.5-15.5) % Plt Count 369 (150-450) k/uL Neutrophils % 56 % Lymphocytes % 34 % Monocytes % 6 % Eosinophils % 2 % Basophils % 0 % Neutrophils # 3.7 (1.3-7.7) k/uL Lymphocytes # 2.3 (1.0-4.8) k/uL Monocytes # 0.4 (0-1.0) k/uL Eosinophils # 0.1 (0-0.7) k/uL Basophils # 0.0 (0-0.2) k/uL Sodium 139 (137-145) mmol/L Potassium 4.4 (3.5-5.1) mmol/L Chloride 109 H (98-107) mmol/L Carbon Dioxide 21 L (22-30) mmol/L Anion Gap 9 mmol/L BUN 15 (7-17) mg/dL Creatinine 0.78 (0.52-1.04) mg/dL Est GFR (CKD-EPI)AfAm >90 (>60 ml/min/1.73 sqM) Est GFR (CKD-EPI)NonAf >90 (>60 ml/min/1.73 sqM) Glucose 91 (74-99) mg/dL Calcium 9.5 (8.4-10.2) mg/dL Magnesium 1.7 (1.6-2.3) mg/dL Total Bilirubin 0.6 (0.2-1.3) mg/dL AST 50 H (14-36) U/L ALT 48 (9-52) U/L Alkaline Phosphatase 105 (38-126) U/L Total Protein 7.1 (6.3-8.2) g/dL Albumin 4.0 (3.5-5.0) g/dL TSH 3.540 (0.465-4.680) mIU/L Urine Color Light Yellow Urine Appearance Clear (Clear) Urine pH 5.5 (5.0-8.0) Ur Specific [place] 1.012 (1.001-1.035) Urine Protein Negative (Negative) Urine Glucose (UA) Negative (Negative) Urine Ketones Negative (Negative) Urine Blood Trace H (Negative) Urine Nitrite Negative (Negative) Urine Bilirubin Negative (Negative) Urine Urobilinogen <2.0 (<2.0) mg/dL Ur Leukocyte Esterase Moderate H (Negative) Urine RBC 3 (0-5) /hpf Ur Squamous Epith Cells 2 (0-4) /hpf Urine Mucus Rare H (None) /hpf Disposition Clinical Impression: Hypertension Disposition: HOME SELF-CARE Condition: Stable Instructions (If sedation given, give patient instructions): Hypertension (ED) Additional Instructions: Follow-up with Dr. Emery on of this week for a blood pressure check an d reevaluation. Should she develop any worsening headache lower extremity edema or new or concerning symptoms return to the emergency department for reevaluation. Is patient prescribed a controlled substance at d/c from ED?: No Referrals: Lynn Carranza MD [Primary Care Provider] - 1-2 days
[2018-12-01 23:30] LABS: Appearance,Urine Clear (Clear); Basophils % (A) 0 %; Bilirubin,Urine Negative (Negative); Blood,Urine Trace (Negative); Color,Urine Light Yellow; Eosinophils # (A) 0.1 k/uL (0-0.7); Eosinophils % (A) 2 %; Glucose,Urine (UA) Negative (Negative); HCT 39.4 % (34.0-46.0); HGB 13.4 gm/dL (11.4-16.0); Ketones,Urine Negative (Negative); Leukocyte Esterase,Urine Moderate (Negative); Lymphocytes # (A) 2.3 k/uL (1.0-4.8); Lymphocytes % (A) 34 %; MCH 29.8 pg (25.0-35.0); MCHC 33.9 g/dL (31.0-37.0); MCV 87.8 fL (80.0-100.0); Mean Platelet Volume 7.9; Monocytes # (A) 0.4 k/uL (0-1.0); Monocytes % (A) 6 %; Mucus,Urine Rare /hpf; Neutrophils # (A) 3.7 k/uL (1.3-7.7); Neutrophils % (A) 56 %; Nitrite,Urine Negative (Negative); PH, Urine 5.5 (5.0-8.0); Platelet Count 369 k/uL (150-450); Protein,Urine Negative (Negative); RBC 4.49 m/uL (3.80-5.40); RBC,Urine 3 /hpf (0-5); RDW 13.7 % (11.5-15.5); Specific Gravity,Urine 1.012 (1.001-1.035); Squamous Epithelial Cell,Urine 2 /hpf (0-4); Urobilinogen,Urine <2.0 mg/dL (<2.0); WBC 6.7 k/uL (3.8-10.6)
[2018-12-01 23:35] LABS: ALT 48 U/L (9-52); AST 50 U/L (14-36); Alkaline Phosphatase 105 U/L (38-126); Anion Gap 9 mmol/L; Blood Urea Nitrogen 15 mg/dL (7-17); Calcium 9.5 mg/dL (8.4-10.2); Carbon Dioxide 21 mmol/L (22-30); Chloride 109 mmol/L (98-107); Glucose 91 mg/dL (74-99); Magnesium 1.7 mg/dL (1.6-2.3); Sodium 139 mmol/L (137-145); Total Bilirubin 0.6 mg/dL (0.2-1.3); Total Protein 7.1 g/dL (6.3-8.2)
[2018-12-02 00:06] VITALS: TEMP 97.5
[2018-12-02 00:26] LABS: Potassium 4.4 mmol/L (3.5-5.1)
[2018-12-02 01:24] VITALS: BP 140/73; PULSE 78
== END 2018-12-02 01:22 | disposition home or self-care (01) ==
LOC: EC 22:27
DX: O16.5 Unspecified maternal hypertension, complicating the puerperium (principal); O90.89 Other complications of the puerperium, not elsewhere classified; R42 Dizziness and giddiness; O99.285 Endocrine, nutritional and metabolic diseases complicating the puerperium; E07.9 Disorder of thyroid, unspecified; Z79.890 Hormone replacement therapy; Z82.49 Family history of ischemic heart disease and other diseases of the circulatory system
CPT/HCPCS: 36415; 80053; 81001; 83735; 84443; 85025; 96360; 99284

== ENCOUNTER 2019-02-08 18:04 | Emergency (ER) | payer OTHER ==
[2019-02-08 18:31] VITALS: BP 121/73; PULSE 84; RESP 18; TEMP 97.6
--- NOTE | 2019-02-08 18:47 | ED ---
General Adult HPI - General Chief complaint: Psychiatric Symptoms Stated complaint: suicidal Time Seen by Provider: 02/08/19 18:32 Source: patient Mode of arrival: ambulatory Limitations: no limitations - History of Present Illness Initial comments: 24-year-old female presenting with suicidal ideations. Patient states that since the of her baby in November she has had worsening depression and anxiety. She was started on Celexa 20 mg 3 weeks prior but states it is not helping. Earlier today she had a fight with a friend which worsened her depres jere. She states she has a plan of slitting her wrists. She states she had cut herself with a knife, and has a history of self-harm, however it's been many years. She denies this being a suicide attempt. She denies any previous psychiatric admissions. She is a history of taking pills one time and attempt to kill herself, but threw them up directly after. She denies any auditory or visual hallucinations, homicidal ideations, decreased ability to participate in ADLs. She denies any drug or alcohol use. States her tetanus shot is up-to-date. - Related Data Home Medications Medication Instructions Recorded Confirmed Citalopram Hydrobromide [CeleXA] 20 mg PO DAILY 02/08/19 02/08/19 Ergocalciferol [Vitamin D2 50,000 unit PO JENNINGS 02/08/19 02/08/19 (DRISDOL)] Previous Rx's Medication Instructions Recorded Ibuprofen [Motrin] 600 mg PO Q6HR PRN #30 tab 11/21/18 Allergies Allergy/AdvReac Type Severity Reaction Status Date / Time No Known Allergies Allergy Verified 02/08/19 18:30 Review of Systems ROS Statement: Those systems with pertinent positive or pertinent negative responses have been documented in the HPI. Review of Systems Constitutional: Denies fever, chills Eyes: Denies change in vision, Denies pain Ears, nose, mouth, throat: Denies headaches, Denies sore throat Cardiovascular: Denies chest pain. Denies palpitations Respiratory: Denies shortness of breath, Denies cough Gastrointestinal: Denies abdominal pain. Denies nausea, vomiting, diarrhea. Genitourinary: Denies hematuria, Denies infections Musculoskeletal: Denies pain, Denies swelling Integumentary: Denies rash. Positive wound Neurological: Denies headache, focal weakness, focal numbness Psychiatric: Positive anxiety, depression, and suicidal ideations Hematologic/Lymphatic: Denies easy bleeding or bruising ROS Other: All systems not noted in ROS Statement are negative. Past Medical History Past Medical History: Thyroid Disorder Additional Past Medical History / Comment(s): Obstetric history: First was a spontaneous . This is her second . She's had care with me since 8 weeks gestation. Blood type is O+, and weighs negative, rubella nonimmune, RPR nonreactive, hepatitis B negative, HIV nonreactive. Her thyroid was not under control to beginning of the but I did increase her medication and it came down to normal. She had a normal maternity 21 but that also so that she was having a female baby, ultrasound said she is having a male fetus. GBS negative. History of Any Multi-Drug Resistant Organisms: None Reported Past Surgical History: Appendectomy Past Anesthesia/Blood Transfusion Reactions: No Reported Reaction Past Psychological History: Anxiety, Depression Smoking Status: Never smoker Past Alcohol Use History: None Reported Past Drug Use History: None Reported - Past Family History Mother Family Medical History: Hypertension, Thyroid Disorder General Exam - General Exam Comments Initial Comments: General: Awake, alert, No acute Distress HENT: Normocephalic. Atraumatic Eyes: PERRL. EOMI. No scleral icterus. No injected conjunctiva Neck: Full ROM Chest/Lungs: Clear to auscultation bilaterally. No wheezing, rhonchi, or rales Cardiac: Regular rate, rhythm. No murmurs or rubs Abdomen/GI: Soft, nontender, nondistended. No rebound, guarding, or rigidity. Musculoskeletal: Full ROM Skin: Warm, dry, 2 superficial linear lacerations to the right wrist without b leeding. Psychiatric: Suicidal ideations. Appropriate affect. Neurologic: A/Ox3, no weakness, no sensory deficit, no abnormal gait, no coordination deficit Limitations: no limitations Course Vital Signs 02/08/19 18:28 Temperature 97.6 F Pulse Rate 84 Respiratory 18 Rate Blood Pressure 121/73 O2 Sat by Pulse 100 Oximetry Medical Decision Making - Medical Decision Making 24 yoF presenting with SI. Patient on exam has a superificial laceration that does not require repair. She has good insight and appropriate affect. She was seen by the EPS nurse who spoke with the on-call psychiatrist. At this time the patient is stable for outpatient follow up of her worsening depression symptoms. Her lives with her and is agreeable to returning to ED should patient's symptoms worsen. He feels safe taking her home. She verbalized a safety c ontract and at this time denies SI. She states she does not feel the way she felt earlier. With the assistance of EPS the patient was given outpatient resources for close follow up. No further emergent workup indicated. The patient was given return to ED instructions. They were instructed to follow up with their primary care provider. Stable for discharge at this time. - Lab Data Result diagrams: 02/08/19 19:46 02/08/19 19:46 Lab Results 02/08/19 02/08/19 Range/Units 19:46 19:46 WBC 7.6 (3.8-10.6) k/uL RBC 4.98 (3.80-5.40) m/uL Hgb 13.7 (11.4-16.0) gm/dL Hct 42.7 (34.0-46.0) % MCV 85.7 (80.0-100.0) fL MCH 27.6 (25.0-35.0) pg MCHC 32.2 (31.0-37.0) g/dL RDW 13.5 (11.5-15.5) % Plt Count 358 (150-450) k/uL Neutrophils % 66 % Lymphocytes % 28 % Monocytes % 3 % Eosinophils % 1 % Basophils % 0 % Neutrophils # 5.0 (1.3-7.7) k/uL Lymphocytes # 2.2 (1.0-4.8) k/uL Monocytes # 0.3 (0-1.0) k/uL Eosinophils # 0.1 (0-0.7) k/uL Basophils # 0.0 (0-0.2) k/uL Sodium 142 (137-145) mmol/L Potassium 4.5 (3.5-5.1) mmol/L Chloride 108 H (98-107) mmol/L Carbon Dioxide 22 (22-30) mmol/L Anion Gap 12 mmol/L BUN 13 (7-17) mg/dL Creatinine 0.79 (0.52-1.04) mg/dL Est GFR (CKD-EPI)AfAm >90 (>60 ml/min/1.73 sqM) Est GFR (CKD-EPI)NonAf >90 (>60 ml/min/1.73 sqM) Glucose 107 H (74-99) mg/dL Calcium 9.8 (8.4-10.2) mg/dL Total Bilirubin 0.2 (0.2-1.3) mg/dL AST 48 H (14-36) U/L ALT 86 H (9-52) U/L Alkaline Phosphatase 104 (38-126) U/L Total Protein 7.9 (6.3-8.2) g/dL Albumin 4.6 (3.5-5.0) g/dL Disposition Clinical Impression: Depression Disposition: HOME SELF-CARE Condition: Good Instructions (If sedation given, give patient instructions): Depression (ED) Additional Instructions: Return to emergency department if your depression worsens and you have thoughts of harming yourself Is patient prescribed a controlled substance at d/c from ED?: No Referrals: Lynn Carranza MD [Primary Care Provider] - 1-2 days
[2019-02-08 19:55] LABS: Basophils % (A) 0 %; Eosinophils # (A) 0.1 k/uL (0-0.7); Eosinophils % (A) 1 %; HCT 42.7 % (34.0-46.0); HGB 13.7 gm/dL (11.4-16.0); Lymphocytes # (A) 2.2 k/uL (1.0-4.8); Lymphocytes % (A) 28 %; MCH 27.6 pg (25.0-35.0); MCHC 32.2 g/dL (31.0-37.0); MCV 85.7 fL (80.0-100.0); Mean Platelet Volume 6.7; Monocytes # (A) 0.3 k/uL (0-1.0); Monocytes % (A) 3 %; Neutrophils % (A) 66 %; Platelet Count 358 k/uL (150-450); RBC 4.98 m/uL (3.80-5.40); RDW 13.5 % (11.5-15.5); WBC 7.6 k/uL (3.8-10.6)
[2019-02-08 20:04] LABS: ALT 86 U/L (9-52); AST 48 U/L (14-36); African American GFR (CKD) >90 (>60 ml/min/1.73 sqM); Albumin 4.6 g/dL (3.5-5.0); Alkaline Phosphatase 104 U/L (38-126); Anion Gap 12 mmol/L; Blood Urea Nitrogen 13 mg/dL (7-17); Calcium 9.8 mg/dL (8.4-10.2); Carbon Dioxide 22 mmol/L (22-30); Chloride 108 mmol/L (98-107); Glucose 107 mg/dL (74-99); Potassium 4.5 mmol/L (3.5-5.1); Sodium 142 mmol/L (137-145); Total Bilirubin 0.2 mg/dL (0.2-1.3); Total Protein 7.9 g/dL (6.3-8.2)
== END 2019-02-08 20:13 | disposition home or self-care (01) ==
LOC: EC 18:04
DX: F32.9 Major depressive disorder, single episode, unspecified (principal); F41.9 Anxiety disorder, unspecified; S61.511A Laceration without foreign body of right wrist, initial encounter; Z91.5 Personal history of self-harm; Z79.899 Other long term (current) drug therapy; X78.1XXA Intentional self-harm by knife, initial encounter
CPT/HCPCS: 36415; 80053; 82075; 85025; 99285

== ENCOUNTER 2020-05-25 04:06 | Emergency (ER) | payer OTHER ==
[2020-05-25 04:12] VITALS: BP 145/84; PULSE 79; RESP 18; TEMP 97.9
[2020-05-25 04:44] LABS: Appearance,Urine Turbid (Clear); Bilirubin,Urine Negative (Negative); Blood,Urine Moderate (Negative); Color,Urine Yellow; Glucose,Urine (UA) Negative (Negative); Ketones,Urine Negative (Negative); Leukocyte Esterase,Urine Large (Negative); Mucus,Urine Moderate /hpf; Nitrite,Urine Negative (Negative); Protein,Urine 1+ (Negative); RBC,Urine 178 /hpf (0-5); Specific Gravity,Urine 1.024 (1.001-1.035); Squamous Epithelial Cell,Urine 9 /hpf (0-4); Urobilinogen,Urine <2.0 mg/dL (<2.0); WBC,Urine >182 /hpf (0-5)
--- NOTE | 2020-05-25 04:53 | ED ---
Female Urogenital HPI - General Chief complaint: Urogenital Stated complaint: Abd Pain Time Seen by Provider: 05/25/20 04:23 Source: patient Mode of arrival: ambulatory Limitations: no limitations - History of Present Illness MD Complaint: dysuria -: hour(s) Location: perineum Radiation: non-radiating Severity: moderate Quality: burning Consistency: constant Improves with: none Worsens with: urination Associated Symptoms: denies other symptoms - Related Data Home Medications Medication Instructions Recorded Confirmed Levothyroxine Sodium [Synthroid] 08/19/18 Pnv,Calcium 72/Iron/Folic Acid 1 each PO 08/19/18 [ Plus Tablet] Citalopram Hydrobromide [CeleXA] 20 mg PO DAILY 02/08/19 02/08/19 Ergocalciferol [Vitamin D2 50,000 unit PO JENNINGS 02/08/19 02/08/19 (DRISDOL)] Previous Rx's Medication Instructions Recorded Ibuprofen [Motrin] 600 mg PO Q6HR PRN #30 tab 11/21/18 Phenazopyridine [Pyridium] 100 mg PO TID #6 tablet 05/25/20 Sulfamethox-Tmp 800-160Mg [Bactrim 1 each PO Q12HR #6 tab 05/25/20 Ds] Allergies Allergy/AdvReac Type Severity Reaction Status Date / Time No Known Allergies Allergy Verified 05/25/20 04:12 Review of Systems ROS Statement: Those systems with pertinent positive or pertinent negative responses have been documented in the HPI. ROS Other: All systems not noted in ROS Statement are negative. Constitutional: Denies: fever, chills Respiratory: Denies: cough, dyspnea Cardiovascular: Denies: chest pain, palpitations Gastrointestinal: Denies: abdominal pain, nausea, vomiting, diarrhea, constipation Genitourinary: Reports: dysuria. Denies: frequency, hematuria Musculoskeletal: Denies: back pain Skin: Denies: rash Neurological: Denies: headache, weakness, numbness Past Medical History Past Medical History: Thyroid Disorder Additional Past Medical History / Comment(s): Obstetric history: First was a spontaneous . This is her second . She's had care with me since 8 weeks gestation. Blood type is O+, and weighs negative, rubella nonimmune, RPR nonreactive, hepatitis B negative, HIV nonreactive. Her thyroid was not under control to beginning of the but I did increase her medication and it came down to normal. She had a normal maternity 21 but that also so that she was having a female baby, ultrasound said she is having a male fetus. GBS negative. History of Any Multi-Drug Resistant Organisms: None Reported Past Surgical History: Appendectomy Past Anesthesia/Blood Transfusion Reactions: No Reported Reaction Past Psychological History: Anxiety, Depression Smoking Status: Never smoker Past Alcohol Use History: Occasional Past Drug Use History: None Reported - Past Family History Mother Family Medical History: Hypertension, Thyroid Disorder General Exam Limitations: no limitations General appearance: alert, in no apparent distress Head exam: Present: atraumatic, normocephalic Eye exam: Present: normal appearance. Absent: scleral icterus, conjunctival injection Respiratory exam: Present: normal lung sounds bilaterally. Absent: respiratory distress, wheezes, rales, rhonchi, stridor Cardiovascular Exam: Present: regular rate, normal rhythm, normal heart sounds. Absent: systolic murmur, diastolic murmur, rubs, gallop GI/Abdominal exam: Present: soft. Absent: distended, tenderness, guarding, rebound, rigid, mass Extremities exam: Present: normal inspection, normal capillary refill. Absent: pedal edema, calf tenderness Back exam: Present: normal inspection. Absent: CVA tenderness (R), CVA tenderness (L) Neurological exam: Present: alert Skin exam: Present: warm, dry, intact, normal color. Absent: rash Course Vital Signs 05/25/20 04:07 Temperature 97.9 F Pulse Rate 79 Respiratory 18 Rate Blood Pressure 145/84 O2 Sat by Pulse 99 Oximetry Medical Decision Making - Lab Data Lab Results 05/25/20 05/25/20 Range/Units 04:27 04:27 Urine Color Yellow Urine Appearance Turbid H (Clear) Urine pH 6.0 (5.0-8.0) Ur Specific [place] 1.024 (1.001-1.035) Urine Protein 1+ H (Negative) Urine Glucose (UA) Negative (Negative) Urine Ketones Negative (Negative) Urine Blood Moderate H (Negative) Urine Nitrite Negative (Negative) Urine Bilirubin Negative (Negative) Urine Urobilinogen <2.0 (<2.0) mg/dL Ur Leukocyte Esterase Large H (Negative) Urine RBC 178 H (0-5) /hpf Urine WBC >182 H (0-5) /hpf Urine WBC Clumps Moderate H (None) /hpf Ur Squamous Epith Cells 9 H (0-4) /hpf Urine Mucus Moderate H (None) /hpf Urine HCG, Qual Not Detected (Not Detectd) Disposition Clinical Impression: Urinary tract infection Disposition: HOME SELF-CARE Condition: Good Instructions (If sedation given, give patient instructions): Urinary Tract Infection in Women (ED) Prescriptions: Sulfamethox-Tmp 800-160Mg [Bactrim Ds] 1 each PO Q12HR #6 tab Phenazopyridine [Pyridium] 100 mg PO TID #6 tablet Is patient prescribed a controlled substance at d/c from ED?: No Referrals: Carole Maldonado NPC [Primary Care Provider] - 1-2 days
[2020-05-25] MEDS ORDERED: SULFAMETHOX-TMP 800-160MG 1 EACH TAB PO STA (04:54)
[2020-05-25] MEDS ORDERED: PHENAZOPYRIDINE 100 MG TAB PO STA (04:54)
== END 2020-05-25 05:10 | disposition home or self-care (01) ==
LOC: SUPCPDRO 04:06 → EC 04:06
DX: N39.0 Urinary tract infection, site not specified (principal); E07.9 Disorder of thyroid, unspecified; F41.9 Anxiety disorder, unspecified; F32.9 Major depressive disorder, single episode, unspecified; Z79.890 Hormone replacement therapy; Z79.899 Other long term (current) drug therapy; Z90.49 Acquired absence of other specified parts of digestive tract
CPT/HCPCS: 81001; 81025; 99284

== ENCOUNTER → 2021-07-05 | Outpatient (CLI) | payer OTHER ==
--- NOTE | 2021-07-05 13:09 | NM ---
EXAMINATION TYPE: NM hepatobiliary w EF DATE OF EXAM: 07/05/2021 COMPARISON: NONE HISTORY: R 10.11 TECHNIQUE: After the intravenous administration of 4.9 mCi Tc 99m Mebrofenin hepatobiliary scintigrap hy is performed. Immediate images post injection. FINDINGS: There is satisfactory initial accumulation of tracer by the liver. The gallbladder is visualized wit hin 4 minutes. The small bowel activity is noted within a minutes. At one hour 8 ounces of oral ens ure plus is given to mimic CCK and gallbladder ejection fraction is calculated at 87 %, slightly abov e the upper limit of the normal range. Therefore there is no scintigraphic evidence of cystic or com mon bile duct obstruction to suggest acute cholecystitis. IMPRESSION: Findings could represent hyperdynamic gallbladder
== END | disposition home or self-care (01) ==
LOC: RADNMMAIN 07:01
PROVIDERS: ATTEND Internal Medicine
DX: K82.8 Other specified diseases of gallbladder (principal)
CPT/HCPCS: 78226; A9537

== ENCOUNTER → 2021-09-26 | Outpatient (CLI) | payer OTHER ==
--- NOTE | 2021-09-26 11:52 | US ---
EXAMINATION TYPE: US gallbladder DATE OF EXAM: 09/26/2021 COMPARISON: NONE CLINICAL HISTORY: R10.11 Rt upper quadrant pain. EXAM MEASUREMENTS: Liver Length: 16.6 cm Gallbladder Wall: 0.3 cm CBD: Not well seen Right Kidney: 10.4 x 4.9 x 4.1 cm Pancreas: Mostly obscured by bowel gas, portions visualized show coarse echotexture Liver: Increased attenuation is suspected, there is a coarse echotexture, poor penetration by the ul trasound Gallbladder: chololithiasis Evidence for sonographic Ram's sign: no CBD: Possibly mildly dilated but not well seen Right Kidney: wnl IMPRESSION: Cholelithiasis, correlate for possible hepatic steatosis, some limitations in common bile duct evaluation. Limited exam.
== END | disposition home or self-care (01) ==
LOC: RADUSWWP 07:13
PROVIDERS: ATTEND Surgery
DX: K80.20 Calculus of gallbladder without cholecystitis without obstruction (principal)
CPT/HCPCS: 76705

== ENCOUNTER 2021-10-10 09:17 | Emergency (ER) | payer OTHER ==
[2021-10-10] MEDS ORDERED: ONDANSETRON 4 MG/2 ML VIAL IVP STA (09:32)
[2021-10-10] MEDS ORDERED: SODIUM CHLORIDE 0.9% 2,000 ML IV STA (09:32)
[2021-10-10 09:35] VITALS: BP 146/91; PULSE 88; RESP 14; TEMP 98.7
--- NOTE | 2021-10-10 10:15 | ED ---
Abdominal Pain HPI - General Chief Complaint: Abdominal Pain Stated Complaint: gallbladder problems, vomiting Time Seen by Provider: 10/10/21 09:26 Source: patient, RN notes reviewed Mode of arrival: ambulatory Limitations: no limitations - History of Present Illness Initial Comments: This a 26-year-old female presents emergency Department with chief complaint of abdominal pain, nausea vomiting. Patient states that she is scheduled for cholecystectomy by Dr. Ge. Patient states that she picked up her paperwork yesterday for her presurgical stuff and noted to the staff that she's been having worsening symptoms. The advised, emergency from if she worsened. She states she's been vomiting all morning, having increasing abdominal pain since unprovoked denies eating this morning. Patient denies any fevers or chills. Patient states the pain epigastric to right upper quadrant. It does radiate to her back. She denies any chance . Patient offers no other complaints. - Related Data Home Medications Medication Instructions Recorded Confirmed Levothyroxine Sodium [Synthroid] 50 mcg PO DAILY 08/19/18 10/10/21 Ergocalciferol [Vitamin D2 50,000 unit PO JENNINGS 02/08/19 10/10/21 (DRISDOL)] ALPRAZolam [Xanax] 0.5 mg PO BID PRN 10/10/21 10/10/21 Calcium Carbonate [Tums] 1,000 mg PO TID PRN 10/10/21 10/10/21 Ibuprofen [Motrin Ib] 800 mg PO Q8H PRN 10/10/21 10/10/21 buPROPion HCL [Wellbutrin XL] 300 mg PO HS 10/10/21 10/10/21 Previous Rx's Medication Instructions Recorded Ondansetron Odt [Zofran Odt] 4 mg PO Q8HR PRN #14 tab 10/10/21 Allergies Allergy/AdvReac Type Severity Reaction Status Date / Time No Known Allergies Allergy Verified 10/10/21 10:46 Review of Systems ROS Statement: Those systems with pertinent positive or pertinent negative responses have been documented in the HPI. ROS Other: All systems not noted in ROS Statement are negative. Past Medical History Past Medical History: Thyroid Disorder Additional Past Medical History / Comment(s): Obstetric history: First was a spontaneous . This is her second . She's had care with me since 8 weeks gestation. Blood type is O+, and weighs negative, rubella nonimmune, RPR nonreactive, hepatitis B negative, HIV nonreactive. Her thyroid was not under control to beginning of the but I did increase her medication and it came down to normal. She had a normal maternity 21 but that also so that she was having a female baby, ultrasound said she is having a male fetus. GBS negative. History of Any Multi-Drug Resistant Organisms: None Reported Past Surgical History: Appendectomy Past Anesthesia/Blood Transfusion Reactions: No Reported Reaction Past Psychological History: Anxiety, Depression Smoking Status: Never smoker Past Alcohol Use History: Occasional Past Drug Use History: None Reported - Past Family History Mother Family Medical History: Hypertension, Thyroid Disorder General Exam Limitations: no limitations General appearance: alert, in no apparent distress Head exam: Present: atraumatic, normocephalic, normal inspection Eye exam: Present: normal appearance, PERRL, EOMI. Absent: scleral icterus, conjunctival injection, periorbital swelling ENT exam: Present: normal exam, normal oropharynx, mucous membranes moist Neck exam: Present: normal inspection, full ROM. Absent: tenderness, meningismus, lymphadenopathy Respiratory exam: Present: normal lung sounds bilaterally. Absent: respiratory distress, wheezes, rales, rhonchi, stridor Cardiovascular Exam: Present: regular rate, normal rhythm, normal heart sounds. Absent: systolic murmur, diastolic murmur, rubs, gallop, clicks GI/Abdominal exam: Present: soft, tenderness, normal bowel sounds. Absent: distended, guarding, rebound, rigid Back exam: Absent: CVA tenderness (R), CVA tenderness (L) Neurological exam: Present: alert, oriented X3 Course Vital Signs 10/10/21 10/10/21 09:20 09:25 Temperature 98.8 F 98.7 F Pulse Rate 80 88 Respiratory 18 14 Rate Blood Pressure 164/90 146/91 O2 Sat by Pulse 100 97 Oximetry Medical Decision Making - Medical Decision Making 26-year-old female presented for abdominal pain nausea vomiting. Patient has kn own cholecystitis he was she's been having increasing issues. Patient is well- hydrated, was reviewed with no stenting findings. Patient is given antiemetics and Toradol symptoms are improving. She feels comfortable discharged. I did discuss case with her surgeon Dr. Ge agrees with plan of discharge and return for any worsening change in symptoms. - Lab Data Result diagrams: 10/10/21 09:45 10/10/21 09:45 Lab Results 10/10/21 10/10/21 10/10/21 Range/Units 09:45 09:45 09:45 WBC 8.7 (3.8-10.6) k/uL RBC 5.03 (3.80-5.40) m/uL Hgb 15.5 (11.4-16.0) gm/dL Hct 45.1 (34.0-46.0) % MCV 89.6 (80.0-100.0) fL MCH 30.8 (25.0-35.0) pg MCHC 34.4 (31.0-37.0) g/dL RDW 13.0 (11.5-15.5) % Plt Count 311 (150-450) k/uL MPV 7.5 Neutrophils % 72 % Lymphocytes % 21 % Monocytes % 4 % Eosinophils % 1 % Basophils % 1 % Neutrophils # 6.3 (1.3-7.7) k/uL Lymphocytes # 1.8 (1.0-4.8) k/uL Monocytes # 0.4 (0-1.0) k/uL Eosinophils # 0.1 (0-0.7) k/uL Basophils # 0.0 (0-0.2) k/uL Sodium (137-145) mmol/L Potassium (3.5-5.1) mmol/L Chloride (98-107) mmol/L Carbon Dioxide (22-30) mmol/L Anion Gap mmol/L BUN (7-17) mg/dL Creatinine (0.52-1.04) mg/dL Est GFR (CKD-EPI)AfAm (>60 ml/min/1.73 sqM) Est GFR (CKD-EPI)NonAf (>60 ml/min/1.73 sqM) Glucose (74-99) mg/dL Plasma Lactic Acid [place] (0.7-2.0) mmol/L Calcium (8.4-10.2) mg/dL Total Bilirubin (0.2-1.3) mg/dL AST (14-36) U/L ALT (4-34) U/L Alkaline Phosphatase (38-126) U/L Total Protein (6.3-8.2) g/dL Albumin (3.5-5.0) g/dL Amylase (30-110) U/L Lipase (23-300) U/L Urine Color Yellow Urine Appearance Cloudy H (Clear) Urine pH 5.5 (5.0-8.0) Ur Specific [place] 1.017 (1.001-1.035) Urine Protein Negative (Negative) Urine Glucose (UA) Negative (Negative) Urine Ketones Negative (Negative) Urine Blood Negative (Negative) Urine Nitrite Negative (Negative) Urine Bilirubin Negative (Negative) Urine Urobilinogen <2.0 (<2.0) mg/dL Ur Leukocyte Esterase Moderate H (Negative) Urine RBC 3 (0-5) /hpf Urine WBC 4 (0-5) /hpf Ur Squamous Epith Cells 10 H (0-4) /hpf Urine Bacteria Rare H (None) /hpf Urine Mucus Rare H (None) /hpf Urine HCG, Qual Not Detected (Not Detectd) 10/10/21 10/10/21 Range/Units 09:45 09:45 WBC (3.8-10.6) k/uL RBC (3.80-5.40) m/uL Hgb (11.4-16.0) gm/dL Hct (34.0-46.0) % MCV (80.0-100.0) fL MCH (25.0-35.0) pg MCHC (31.0-37.0) g/dL RDW (11.5-15.5) % Plt Count (150-450) k/uL MPV Neutrophils % % Lymphocytes % % Monocytes % % Eosinophils % % Basophils % % Neutrophils # (1.3-7.7) k/uL Lymphocytes # (1.0-4.8) k/uL Monocytes # (0-1.0) k/uL Eosinophils # (0-0.7) k/uL Basophils # (0-0.2) k/uL Sodium 139 (137-145) mmol/L Potassium 4.1 (3.5-5.1) mmol/L Chloride 107 (98-107) mmol/L Carbon Dioxide 24 (22-30) mmol/L Anion Gap 8 mmol/L BUN 14 (7-17) mg/dL Creatinine 0.85 (0.52-1.04) mg/dL Est GFR (CKD-EPI)AfAm >90 (>60 ml/min/1.73 sqM) Est GFR (CKD-EPI)NonAf >90 (>60 ml/min/1.73 sqM) Glucose 105 H (74-99) mg/dL Plasma Lactic Acid [place] 1.3 (0.7-2.0) mmol/L Calcium 10.1 (8.4-10.2) mg/dL Total Bilirubin 0.4 (0.2-1.3) mg/dL AST 31 (14-36) U/L ALT 35 H (4-34) U/L Alkaline Phosphatase 81 (38-126) U/L Total Protein 7.8 (6.3-8.2) g/dL Albumin 4.4 (3.5-5.0) g/dL Amylase 57 (30-110) U/L Lipase 175 (23-300) U/L Urine Color Urine Appearance (Clear) Urine pH (5.0-8.0) Ur Specific [place] (1.001-1.035) Urine Protein (Negative) Urine Glucose (UA) (Negative) Urine Ketones (Negative) Urine Blood (Negative) Urine Nitrite (Negative) Urine Bilirubin (Negative) Urine Urobilinogen (<2.0) mg/dL Ur Leukocyte Esterase (Negative) Urine RBC (0-5) /hpf Urine WBC (0-5) /hpf Ur Squamous Epith Cells (0-4) /hpf Urine Bacteria (None) /hpf Urine Mucus (None) /hpf Urine HCG, Qual (Not Detectd) Disposition Clinical Impression: Cholelithiasis, Abdominal pain Disposition: HOME SELF-CARE Condition: Stable Instructions (If sedation given, give patient instructions): Abdominal Pain (ED) Additional Instructions: Please return to the Emergency Department if symptoms worsen or any other concerns. Prescriptions: Ondansetron Odt [Zofran Odt] 4 mg PO Q8HR PRN #14 tab PRN Reason: Nausea Is patient prescribed a controlled substance at d/c from ED?: No Referrals: Iris Lara MD [Primary Care Provider] - 1-2 days Zak Ge MD [Medical Doctor] - 1-2 days Time of Disposition: 11:36
[2021-10-10 10:18] LABS: Basophils % (A) 1 %; Eosinophils # (A) 0.1 k/uL (0-0.7); Eosinophils % (A) 1 %; HCT 45.1 % (34.0-46.0); HGB 15.5 gm/dL (11.4-16.0); Lymphocytes # (A) 1.8 k/uL (1.0-4.8); Lymphocytes % (A) 21 %; MCH 30.8 pg (25.0-35.0); MCHC 34.4 g/dL (31.0-37.0); MCV 89.6 fL (80.0-100.0); Mean Platelet Volume 7.5; Monocytes # (A) 0.4 k/uL (0-1.0); Monocytes % (A) 4 %; Neutrophils # (A) 6.3 k/uL (1.3-7.7); Neutrophils % (A) 72 %; Platelet Count 311 k/uL (150-450); RBC 5.03 m/uL (3.80-5.40); WBC 8.7 k/uL (3.8-10.6)
[2021-10-10 10:23] LABS: Appearance,Urine Cloudy (Clear); Bacteria,Urine Rare /hpf; Bilirubin,Urine Negative (Negative); Blood,Urine Negative (Negative); Color,Urine Yellow; Glucose,Urine (UA) Negative (Negative); Ketones,Urine Negative (Negative); Leukocyte Esterase,Urine Moderate (Negative); Mucus,Urine Rare /hpf; Nitrite,Urine Negative (Negative); PH, Urine 5.5 (5.0-8.0); Protein,Urine Negative (Negative); RBC,Urine 3 /hpf (0-5); Specific Gravity,Urine 1.017 (1.001-1.035); Squamous Epithelial Cell,Urine 10 /hpf (0-4); Urobilinogen,Urine <2.0 mg/dL (<2.0); WBC,Urine 4 /hpf (0-5)
[2021-10-10 10:25] LABS: ALT 35 U/L (4-34); AST 31 U/L (14-36); African American GFR (CKD) >90 (>60 ml/min/1.73 sqM); Albumin 4.4 g/dL (3.5-5.0); Alkaline Phosphatase 81 U/L (38-126); Amylase 57 U/L (30-110); Anion Gap 8 mmol/L; Blood Urea Nitrogen 14 mg/dL (7-17); Calcium 10.1 mg/dL (8.4-10.2); Carbon Dioxide 24 mmol/L (22-30); Chloride 107 mmol/L (98-107); Glucose 105 mg/dL (74-99); Lipase 175 U/L (23-300); Non-African American GFR(CKD) >90 (>60 ml/min/1.73 sqM); Potassium 4.1 mmol/L (3.5-5.1); Sodium 139 mmol/L (137-145); Total Bilirubin 0.4 mg/dL (0.2-1.3); Total Protein 7.8 g/dL (6.3-8.2)
[2021-10-10] MEDS ORDERED: FAMOTIDINE 20 MG/2 ML VIAL IV STA (10:34)
[2021-10-10] MEDS ORDERED: METOCLOPRAMIDE 5 MG/ML 2 ML VIAL IVP STA (10:34)
[2021-10-10] MEDS ORDERED: KETOROLAC 15 MG/ML 1 ML VIAL IVP STA (10:54)
[2021-10-10] MEDS ORDERED: ACET/COD 300 MG/30 MG STARTER PACK 6 TAB BTL PO STA (11:47)
== END 2021-10-10 12:41 | disposition home or self-care (01) ==
LOC: EC 09:17
DX: K80.20 Calculus of gallbladder without cholecystitis without obstruction (principal); E07.9 Disorder of thyroid, unspecified; F41.9 Anxiety disorder, unspecified; F32.A Depression, unspecified; Z90.49 Acquired absence of other specified parts of digestive tract
CPT/HCPCS: 99284; 96374; 96375 ×2; 96361 ×2; 36415; 80053; 82150; 83605; 83690; 85025; 81001; 81025; J2765; J2405

== ENCOUNTER 2021-10-17 11:38 | Day surgery (SDC) | payer OTHER ==
[2021-10-13 12:04] VITALS: BMI 39.0
[~2021-10-17 11:38] MED LIST: ACETAMINOPHEN TAB 500 MG TAB PO PRN; DEXAMETHASONE SOD PHOSPHATE 4 MG/ML 1 ML VIAL IV ONE; HEPARIN SODIUM,PORCINE/PF 5,000 UNIT/0.5 ML SYRINGE SQ PRN; HYDROmorphone 0.5 MG/0.5 ML SYRINGE IVP PRN; LACTATED RINGERS 1,000 ML IV SCH
--- NOTE | 2021-10-17 12:39 | P.GSHP ---
History of Present Illness H&P Date: 10/17/21 Chief Complaint: Chronic cholecystitis 26-year-old female seen in the office in August. Patient describes epigastric pain with radiation of the back. Symptoms occur with both spicy foods and greasy foods. Some nausea but no vomiting. We'll have severe episode 2-3 times per week. Some heartburn symptoms. Patient is tried antacids without relief. Patient had a HIDA scan showing an ejection fraction of 87%. No ultrasound was obtained so one was ordered after I saw her in the office. Ultrasound showed gallstones without a bladder wall thickening or biliary dilation. Here today for elective cholecystectomy. Labs essentially normal Past Medical History Past Medical History: Thyroid Disorder Additional Past Medical History / Comment(s): Obstetric history: First was a spontaneous . This is her second . She's had care with me since 8 weeks gestation. Blood type is O+, and weighs negative, rubella nonimmune, RPR nonreactive, hepatitis B negative, HIV nonreactive. Her thyroid was not under control to beginning of the but I did increase her medication and it came down to normal. She had a normal maternity 21 but that also so that she was having a female baby, ultrasound said she is having a male fetus. GBS negative. History of Any Multi-Drug Resistant Organisms: None Reported Past Surgical History: Appendectomy Past Anesthesia/Blood Transfusion Reactions: No Reported Reaction Past Psychological History: Anxiety, Depression Smoking Status: Never smoker Past Alcohol Use History: Occasional Past Drug Use History: None Reported - Past Family History Mother Family Medical History: Hypertension, Thyroid Disorder Medications and Allergies Home Medications Medication Instructions Recorded Confirmed Type Levothyroxine Sodium [Synthroid] 50 mcg PO DAILY 08/19/18 10/13/21 History Ergocalciferol [Vitamin D2 50,000 unit PO JENNINGS 02/08/19 10/13/21 History (DRISDOL)] buPROPion HCL [Wellbutrin XL] 300 mg PO HS 10/10/21 10/13/21 History Acetaminophen-Codeine 300-30mg 1 tab PO Q6H PRN 10/13/21 10/13/21 History [Tylenol w/codeine #3] Allergies Allergy/AdvReac Type Severity Reaction Status Date / Time No Known Allergies Allergy Verified 10/17/21 12:31 Surgical - Exam Vital Signs Temp Pulse Resp BP Pulse Ox 98.7 F 92 16 160/67 99 10/17/21 12:33 10/17/21 12:33 10/17/21 12:33 10/17/21 12:33 10/17/21 12:33 Physical exam: General: Well-developed, well-nourished HEENT: Normocephalic, sclerae nonicteric Abdomen: Nontender, nondistended Extremities: No edema Neuro: Alert and oriented Assessment and Plan (1) Chronic cholecystitis Narrative/Plan: 26-year-old female with chronic cholecystitis. We'll proceed with laparoscopic, possible open cholecystectomy at this time. Risks of bleeding, infection, bile leak, bile duct injury, retained common bile duct stone, persistent pain, trocar injury, conversion to an open procedure, hernia, anesthesia related complications were reviewed. The patient understands and wishes to proceed. Current Visit: Yes Status: Acute Code(s): K81.1 - CHRONIC CHOLECYSTITIS SNOMED Code(s): 57072388
[2021-10-17] MEDS: ONDANSETRON 4 MG/2 ML VIAL IVP ONE ×2 (12:47→16:43)
[2021-10-17] MEDS ORDERED: LIDOCAINE 1% INJ 10MG/ML (20 ML MDV) ONE (14:31)
[2021-10-17] MEDS ORDERED: fentaNYL (PF) 50 MCG/ML 2 ML AMP ONE (14:31)
[2021-10-17] MEDS ORDERED: NEOSTIGMINE 1 MG/ML 10 ML VIAL ONE (14:31)
[2021-10-17] MEDS ORDERED: MIDAZOLAM 2 MG/2 ML VIAL ONE (14:31)
[2021-10-17] MEDS ORDERED: KETOROLAC 15 MG/ML 1 ML VIAL ONE (14:31)
[2021-10-17] MEDS ORDERED: ROCURONIUM 10 MG/ML (5 ML VIAL) IV ONE (14:31)
[2021-10-17] MEDS ORDERED: PROPOFOL 10 MG/ML 20 ML VIAL IV ONE (14:31)
[2021-10-17] MEDS ORDERED: HYDROmorphone (PF) 1 MG/ML ONE (14:31)
[2021-10-17] MEDS ORDERED: GLYCOPYRROLATE 0.2 MG/ML 2 ML VIAL ONE (14:31)
[2021-10-17] MEDS ORDERED: SUCCINYLCHOLINE CHLORIDE VIAL 200 MG/10 ML VIAL IV ONE (14:31)
[2021-10-17] MEDS ORDERED: BUPIVACAIN-EPI 0.25%-1:200,000 30 ML VIAL SQ ONE (15:02)
[2021-10-17] MEDS ORDERED: LACTATED RINGERS 1,000 ML IV ONE (15:41)
--- NOTE | 2021-10-17 16:10 | P.OP ---
Date of Procedure: 10/17/21 Procedure(s) Performed: PREOPERATIVE DIAGNOSIS: Chronic cholecystitis POSTOPERATIVE DIAGNOSIS: Same PROCEDURE: Laparoscopic cholecystectomy SURGEON: Luma EBL: Minimal see anesthesia record ANESTHESIA: Gen. COMPLICATIONS: None OPERATIVE PROCEDURE: The patient was brought and placed on the operating room table in the supine position. The patient was placed under general anesthesia at that time. The abdomen was prepped and draped in the usual sterile fashion. A small vertical infraumbilical incision was made. The fascia was grasped with the Manuel forceps. The fascia was retracted anteriorly. The Veress needle was advanced into the peritoneal cavity. The saline drop test was normal. Insufflation began but quickly reached 15 mmHg. I was concerned that we were in the preperitoneal space. I instead decided to enter the abdominal cavity through a 5 mm optical right upper quadrant trocar incision. The optical trocar was easily advanced into the peritoneal cavity and insufflation was increased to 15 mm. The periumbilical region was inspected. There was in fact some air present in the preperitoneal space. A 5 mm trocar was placed there and the camera was then inserted through the umbilicus. Additional 5 mm trocar was then placed in the right upper quadrant. A 12 mm trocar was advanced into the epigastric incision site. The gallbladder had evidence of chronic inflammatory changes with a large amount of fat densely adherent to the gallbladder. This fat was mobilized off of the gallbladder using both blunt dissection and electrocautery. The gallbladder was retracted superiorly and laterally. The peritoneum overlying the infundibulum was bluntly dissected. The patient's c ystic duct was visualized. The junction between the cystic duct common and hepatic duct was identified. The critical view of safety was achieved after blunt dissection. The patient's cystic duct was somewhat prominent in diameter. A 2-0 Ethibond stitch with a tie knot was used to ligate the cystic duct on the patient's side as well as an additional clip on the patient's side. The adjacent cystic artery was then clipped using 2 12 mm clips. A small vessel was seen along the gallbladder fossa and clipped as well. The gallbladder was then removed from the liver bed using electrocautery. The gallbladder was then removed from the epigastric trocar site with an Endo Catch bag. The gallbladder fossa was irrigated with saline. There was no evidence of any bleeding or biliary drainage seen. The fascia at the 12 millimeter site was closed using a Bryson-Naldo 0 Vicryl stitch. The trochars were then removed. The skin at all 4 sites was closed using a 4-0 Monocryl stitch. Skin glue was utilized on the incision sites. At the end of this procedure the sponge and needle counts were correct. DISPOSITION: Stable to the recovery room
[2021-10-17 16:23] VITALS: TEMP 98
[2021-10-17 17:29] VITALS: RESP 16
[2021-10-17] MEDS ORDERED: ACETAMINOPHEN TAB 325 MG TAB PO SCH (18:00)
[2021-10-17 18:16] VITALS: BP 105/72; PULSE 92
[2021-10-17] MEDS ORDERED: IBUPROFEN 600 MG TAB PO SCH (21:00)
== END 2021-10-17 18:38 | disposition home or self-care (01) ==
LOC: OR 11:38
PROVIDERS: ATTEND Surgery
DX: K80.10 Calculus of gallbladder with chronic cholecystitis without obstruction (principal); E03.9 Hypothyroidism, unspecified; F41.9 Anxiety disorder, unspecified; E55.9 Vitamin D deficiency, unspecified; F32.A Depression, unspecified; Z90.49 Acquired absence of other specified parts of digestive tract; Z82.49 Family history of ischemic heart disease and other diseases of the circulatory system; F17.200 Nicotine dependence, unspecified, uncomplicated; Z83.49 Family history of other endocrine, nutritional and metabolic diseases; E66.01 Morbid (severe) obesity due to excess calories; Z68.43 Body mass index [BMI] 50.0-59.9, adult; Z79.890 Hormone replacement therapy; Z79.899 Other long term (current) drug therapy
CPT/HCPCS: 47562; 81025; 88304; J2250; J0330; J1100; J2710; J2405; J2001; J3010; J1170 ×2; J1885; J2704; J1644

== ENCOUNTER → 2022-09-14 | Outpatient (CLI) | payer OTHER ==
--- NOTE | 2022-09-14 11:45 | USB ---
Reason for Exam: Clinical finding. Indicated Problems: Palpable abnormality of the left side. Patient History: Menarche at age 12. First Full-Term at age 23. Hormonal Contraceptives, starting at age 17 for 8 years. Findings: The upper outer quadrant of the left breast, the axilla of the left breast and the retroareolar of the left breast were scanned. No solid or cystic masses are identified. [facility] mammography recommended. Overall Assessment: Incomplete: need additional imaging evaluation, BI-RAD 0 Management: Diagnostic Mammogram of the left breast. A clinical breast exam by your physician is recommended on an annual basis and results should be correlated with mammographic findings. This exam should not preclude additional follow-up of suspicious palpable abnormalities. Results were given to the patient verbally at the time of exam. Electronically signed and approved by: Jon Agrawal D.O. Radiologis
--- NOTE | 2022-09-14 11:49 | MM ---
Reason for Exam: Clinical finding. Indicated Problems: Lump or thickening of the left side (size 20) for 1 Week(s). Patient History: Menarche at age 12. First Full-Term at age 23. Hormonal Contraceptives, starting at age 17 for 8 years. Last menstrual period: 03/09/2022 Tissue Density: The breast tissue is heterogeneously dense. This may lower the sensitivity of mammography. Findings: Analyzed By CAD. Overall pattern appears symmetrical. There is a few scattered benign-appearing calcifications present. An area of the palpable abnormalities marked in the upper outer left breast. At this level on the mediolateral oblique view there appears to be a difficult at the level of the pectoralis muscle. This somewhat bases similar to the contralateral right side. A discrete mammographic abnormality is not identified. Surgical consultation and short-term follow-up in 6 months is recommended. Consider MRI for additional evaluation. Overall Assessment: Probably benign, BI-RAD 3 Management: Diagnostic Mammogram of the left breast in 6 months. Surgical Consultation of the left breast. Diagnostic Breast MRI of both breasts. A clinical breast exam by your physician is recommended on an annual basis and results should be correlated with mammographic findings. This exam should not preclude additional follow-up of suspicious palpable abnormalities. Results were given to the patient verbally at the time of exam. Electronically signed and approved by: Jon Agrawal D.O. Radiologis
== END | disposition home or self-care (01) ==
LOC: RADMAMWWP 09:51
PROVIDERS: ATTEND Family Medicine
DX: N63.20 Unspecified lump in the left breast, unspecified quadrant (principal)
CPT/HCPCS: 77066; 76642; G0279; 77062

== ENCOUNTER 2023-01-04 17:59 | Emergency (ER) | payer OTHER ==
[2023-01-04 18:10] VITALS: TEMP 98.5
--- NOTE | 2023-01-04 19:12 | ED ---
Recheck HPI - General Chief Complaint: Recheck/Abnormal Lab/Rx Stated Complaint: High blood pressure Time Seen by Provider: 01/04/23 19:11 Source: patient, RN notes reviewed, old records reviewed Mode of arrival: ambulatory Limitations: no limitations - History of Present Illness Initial Comments: This is a 27-year-old female to the ER today. Patient presents today for evaluation of . Patient has hypertension and take blood pressure home found to be hypertensive presents DF for evaluation today. No abdominal pain no cramping no headache abdominal pain no change in medications no other complaints a she is a , spontaneous Complaint: other (Elevated blood pressure) Returns Today for: other (No complaints) Symptoms Since Prior Visit: no new symptoms Context: planned re-check (Sent DF for evaluation) Associated Symptoms: none Treatments Prior to Arrival: other (0) - Related Data Home Medications Medication Instructions Recorded Confirmed Ergocalciferol [Vitamin D2 50,000 unit PO JENNINGS 02/08/19 01/04/23 (DRISDOL)] Chlorthalidone [Hygroton] 25 mg PO BID 01/04/23 01/04/23 Ketoconazole 2% Shampoo [Nizoral] 1 applic TOPICAL DAILY PRN 01/04/23 01/04/23 Levothyroxine Sodium [Synthroid] 100 mcg PO DAILY 01/04/23 01/04/23 Lisdexamfetamine Dimesylate 50 mg PO DAILY 01/04/23 01/04/23 [Vyvanse] buPROPion XL [Wellbutrin XL] 150 mg PO DAILY 01/04/23 01/04/23 Previous Rx's Medication Instructions Recorded cloNIDine HCL [Catapres] 0.1 mg PO BID PRN #30 tab 01/04/23 Allergies Allergy/AdvReac Type Severity Reaction Status Date / Time No Known Allergies Allergy Verified 01/04/23 19:58 Review of Systems ROS Statement: Those systems with pertinent positive or pertinent negative responses have been documented in the HPI. ROS Other: All systems not noted in ROS Statement are negative. Past Medical History Past Medical History: Hypertension, Thyroid Disorder Additional Past Medical History / Comment(s): Obstetric history: First was a spontaneous . This is her second . She's had care with me since 8 weeks gestation. Blood type is O+, and weighs negative, rubella nonimmune, RPR nonreactive, hepatitis B negative, HIV nonreactive. Her thyroid was not under control to beginning of the but I did increase her medication and it came down to normal. She had a normal maternity 21 but that also so that she was having a female baby, ultrasound said she is having a male fetus. GBS negative. History of Any Multi-Drug Resistant Organisms: None Reported Past Surgical History: Appendectomy Past Anesthesia/Blood Transfusion Reactions: No Reported Reaction Past Psychological History: Anxiety, Depression Smoking Status: Never smoker Past Alcohol Use History: Occasional Past Drug Use History: None Reported - Past Family History Mother Family Medical History: Hypertension, Thyroid Disorder General Exam Limitations: no limitations General appearance: alert, in no apparent distress Head exam: Present: atraumatic, normocephalic, normal inspection Eye exam: Present: normal appearance, PERRL, EOMI. Absent: scleral icterus, conjunctival injection, periorbital swelling ENT exam: Present: normal exam, mucous membranes moist Neck exam: Present: normal inspection. Absent: tenderness, meningismus, lymphadenopathy Respiratory exam: Present: normal lung sounds bilaterally. Absent: respiratory distress, wheezes, rales, rhonchi, stridor Cardiovascular Exam: Present: regular rate, normal rhythm, normal heart sounds. Absent: systolic murmur, diastolic murmur, rubs, gallop, clicks GI/Abdominal exam: Present: soft, normal bowel sounds. Absent: distended, tenderness, guarding, rebound, rigid Extremities exam: Present: normal inspection, full ROM, normal capillary refill. Absent: tenderness, pedal edema, joint swelling, calf tenderness Back exam: Present: normal inspection Neurological exam: Present: alert, oriented X3, CN II-XII intact Psychiatric exam: Present: normal affect, normal mood Skin exam: Present: warm, dry, intact, normal color. Absent: rash Course Vital Signs 01/04/23 01/04/23 01/04/23 18:07 20:41 20:46 Temperature 98.5 F Pulse Rate 107 H 87 Respiratory 20 16 Rate Blood Pressure 115/76 126/92 135/84 O2 Sat by Pulse 98 98 Oximetry - Reevaluation(s) Reevaluation #1: 01/04/23 19:45 Medical record is reviewed Reevaluation #2: 01/04/23 19:45 Blood pressure check here in the ER is normal Reevaluation #3: 05/19/23 19:45 Patient informed of results questions answered Reevaluation #4: 01/04/23 19:45 Was pt. sent in by a medical professional or institution? @ -no Did you speak to anyone other than the patient for history? @ -no Did you review nursing and triage notes? @ -agree Were old charts reviewed? @ -no Differential Diagnosis? @ -prior EKG interpreted by me (3pts min.)? @ -yes X-rays interpreted by me (1pt min.)? @ -no CT interpreted by me (1pt min.)? @ -no U/S interpreted by me (1pt. min.)? @ -no What testing was considered but not performed? (CT, X-rays, U/S, labs)? Why? @ -no What meds were considered but not given? Why? @ -no Did you discuss the management of the patient with other professionals? @ -no Did you reconcile home meds? @ -no Was smoking cessation discussed for >3mins.? @ -no Was critical care preformed (if so, how long)? @ -no Were there social determinants of health that impacted care today? How? (Homelessness, low income, unemployed, alcoholism, drug addiction, transportation, low edu. Level, literacy, decrease access to med. care, care home, rehab)? @ -no Was there de-escalation of care discussed even if they declined? (Discuss DNR or withdrawal of care, Hospice)? @ -no What co-morbidities impacted this encounter? (DM, HTN, Smoking, COPD, CAD, Cancer, CVA, Hep., AIDS, mental health diagnosis, sleep apnea, morbid obesity)? @ -none Was patient admitted / discharged? @ -dc Undiagnosed new problem with uncertain prognosis? @ -no Drug Therapy requiring intensive monitoring for toxicity (Heparin, Nitro, Insulin, Cardizem)? @ -no Were any procedures done? @ -no Diagnosis/symptom? @ -Hypertension Acute, or Chronic, or Acute on Chronic? @ -no Uncomplicated (without systemic symptoms) or Complicated (systemic symptoms)? @ -uncomplicated Side effects of treatment? @ -no Exacerbation, Progression, or Severe Exacerbation] @ -no Poses a threat to life or bodily function? @ -no Medical Decision Making - Medical Decision Making 27 female to the emergency department for blood pressure, patient has recent diagnosis of hypertension and increased elevated blood pressure today will be given when necessary medication for blood pressure at home and can be discharged to follow-up with primary care Disposition Clinical Impression: Hypertension Disposition: HOME SELF-CARE Condition: Good Instructions (If sedation given, give patient instructions): Hypertension (ED) Prescriptions: cloNIDine HCL [Catapres] 0.1 mg PO BID PRN #30 tab PRN Reason: Hypertension Is patient prescribed a controlled substance at d/c from ED?: No Referrals: Víctor Dodson DO [Primary Care Provider] - 1-2 days Time of Disposition: 20:20
[2023-01-04] MEDS ORDERED: cloNIDine HCL 0.1 MG TAB PO STA (20:21)
[2023-01-04 20:42] VITALS: PULSE 87; RESP 16
[2023-01-04 20:47] VITALS: BP 135/84
== END 2023-01-04 20:49 | disposition home or self-care (01) ==
LOC: EC 17:59
DX: O16.9 Unspecified maternal hypertension, unspecified trimester (principal); O99.284 Endocrine, nutritional and metabolic diseases complicating childbirth; E07.9 Disorder of thyroid, unspecified; O9A.519 Psychological abuse complicating pregnancy, unspecified trimester; F41.9 Anxiety disorder, unspecified; F32.A Depression, unspecified; Z79.899 Other long term (current) drug therapy; Z79.890 Hormone replacement therapy; Z3A.00 Weeks of gestation of pregnancy not specified
CPT/HCPCS: 99283

== ENCOUNTER → 2023-06-28 | Outpatient (CLI) | payer OTHER | LOC: WWCWWP 09:06 | PROVIDERS: ATTEND Surgery | DX: Z53.9 Procedure and treatment not carried out, unspecified reason (principal) ==

== ENCOUNTER → 2023-12-25 | Outpatient (CLI) | payer OTHER ==
--- NOTE | 2023-12-29 17:18 | NM ---
EXAMINATION TYPE: NM thyroid image w uptake DATE OF EXAM: 12/26/2023 COMPARISON: NONE CLINICAL INDICATION: Female, 28 years old with history of E06.3 AUTOIMMUNE THYROIDITIS; TECHNIQUE: Thyroid iodine uptake is calculated and images performed after the oral administration of 306 uCi 1-123 Capsule. FINDINGS: There is normal distribution of activity throughout the gland. The 4 hour iodine uptake is calculated at 16.4% (normal range 8-14%). The 24-hour iodine uptake is calculated at 37.1% (normal r juan pablo 15-35%). More focal uptake seen within the medial aspect of the right superior thyroid gland. IMPRESSION: Elevated thyroid uptake compatible with hyperthyroidism. 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 Correlate with thyroid ultra sound.
== END | disposition home or self-care (01) ==
LOC: RADNMMAIN 08:39
PROVIDERS: ATTEND Family Medicine
DX: E06.3 Autoimmune thyroiditis (principal); E07.89 Other specified disorders of thyroid
CPT/HCPCS: 78014; A9516

== ENCOUNTER 2024-06-06 07:40 | Inpatient (IN) | payer OTHER ==
--- NOTE | 2024-06-06 07:49 | ED ---
Neuro HPI - General Chief Complaint: Neuro Symptoms/Deficit Stated Complaint: facial numbness Time Seen by Provider: 06/06/24 07:48 Source: patient, RN notes reviewed Mode of arrival: ambulatory Limitations: no limitations - History of Present Illness Is the patient presenting with stroke symptoms?: No Initial Comments: This is a 29-year-old female with a history of Brittney's with subsequent thyroidectomy on 06/04/2024 presented to the emergency department with facial numbness and extremity paresthesias with muscle cramping that started this morning. Patient is concerned that her calcium levels may be low. States that she had a thyroidectomy 2 days prior due to enlarged goiter and concern for possible malignancy. States that she has been taking her medication as prescribed after the procedure. Follow-up appointment is scheduled in 2 weeks. surgery was completed with a surgeon at [facility]. - Related Data Home Medications: Home Medications Medication Instructions Recorded Confirmed Ergocalciferol [Vitamin D2 50,000 unit PO JENNINGS 02/08/19 01/04/23 (DRISDOL)] Chlorthalidone [Hygroton] 25 mg PO BID 01/04/23 01/04/23 Ketoconazole 2% Shampoo [Nizoral] 1 applic TOPICAL DAILY PRN 01/04/23 01/04/23 Levothyroxine Sodium [Synthroid] 100 mcg PO DAILY 01/04/23 01/04/23 Lisdexamfetamine Dimesylate 50 mg PO DAILY 01/04/23 01/04/23 [Vyvanse] buPROPion XL [Wellbutrin XL] 150 mg PO DAILY 01/04/23 01/04/23 Previous Rx's Medication Instructions Recorded cloNIDine HCL [Catapres] 0.1 mg PO BID PRN #30 tab 01/04/23 Allergies/Adverse Reactions: Allergies Allergy/AdvReac Type Severity Reaction Status Date / Time No Known Allergies Allergy Verified 06/06/24 07:41 Review of Systems ROS Statement: Those systems with pertinent positive or pertinent negative responses have been documented in the HPI. ROS Other: All systems not noted in ROS Statement are negative. General Exam Limitations: no limitations General appearance: alert, in no apparent distress Eye exam: Present: normal appearance, PERRL, EOMI. Absent: scleral icterus, conjunctival injection, periorbital swelling ENT exam: Present: normal exam, mucous membranes moist Neck exam: Present: normal inspection, other (post surgical anterior neck incision, no erythema or purulence). Absent: tenderness, meningismus, lymphadenopathy Respiratory exam: Present: normal lung sounds bilaterally. Absent: respiratory distress, wheezes, rales, rhonchi, stridor Cardiovascular Exam: Present: regular rate, normal rhythm, normal heart sounds. Absent: systolic murmur, diastolic murmur, rubs, gallop, clicks GI/Abdominal exam: Present: soft, normal bowel sounds. Absent: distended, tenderness, guarding, rebound, rigid Extremities exam: Present: normal inspection, full ROM, normal capillary refill, other (bilateral upper and lower extremity parasthesais). Absent: tenderness, pedal edema, joint swelling, calf tenderness Back exam: Present: normal inspection Neurological exam: Present: alert, oriented X3, CN II-XII intact, reflexes normal (slight facial twitching with percussion to the facial nerve) Skin exam: Present: warm, dry, intact, normal color. Absent: rash Stroke MDM - Lab Data Result diagrams: 06/06/24 08:11 06/06/24 08:11 Lab Results 06/06/24 06/06/24 Range/Units 08:11 08:11 WBC 7.9 (3.8-10.6) k/uL RBC 4.41 (3.80-5.40) m/uL Hgb 13.5 (11.4-16.0) gm/dL Hct 38.8 (34.0-46.0) % MCV 88.0 (80.0-100.0) fL MCH 30.5 (25.0-35.0) pg MCHC 34.7 (31.0-37.0) g/dL RDW 13.3 (11.5-15.5) % Plt Count 289 (150-450) k/uL MPV 7.4 Neutrophils % 54 % Lymphocytes % 39 % Monocytes % 5 % Eosinophils % 1 % Basophils % 0 % Neutrophils # 4.3 (1.3-7.7) k/uL Lymphocytes # 3.0 (1.0-4.8) k/uL Monocytes # 0.4 (0-1.0) k/uL Eosinophils # 0.1 (0-0.7) k/uL Basophils # 0.0 (0-0.2) k/uL Sodium 140 (137-145) mmol/L Potassium 3.1 L (3.5-5.1) mmol/L Chloride 101 (98-107) mmol/L Carbon Dioxide 34 H (22-30) mmol/L Anion Gap 5 mmol/L BUN 9 (7-17) mg/dL Creatinine 0.71 (0.52-1.04) mg/dL Est GFR (CKD-EPI)AfAm >90 (>60 ml/min/1.73 sqM) Est GFR (CKD-EPI)NonAf >90 (>60 ml/min/1.73 sqM) Glucose 91 (74-99) mg/dL Calcium 6.6 L (8.4-10.2) mg/dL Ionized Calcium Nithin 3.6 L (4.5-5.3) mg/dL Phosphorus 4.3 (2.5-4.5) mg/dL Magnesium 0.9 L* (1.6-2.3) mg/dL Total Bilirubin 0.4 (0.2-1.3) mg/dL AST 73 H (14-36) U/L ALT 58 H (4-34) U/L Alkaline Phosphatase 60 (38-126) U/L Total Protein 6.4 (6.3-8.2) g/dL Albumin 3.8 (3.5-5.0) g/dL TSH 9.420 H (0.465-4.680) mIU/L Free T4 1.07 (0.78-2.19) ng/dL - Medical Decision Making Was pt. sent in by a medical professional or institution (, [place], [employer], urgent care, hospital, or longterm...) When possible be specific @ -No Did you speak to anyone other than the patient for history (EMS, parent, family, police, friend...)? What history was obtained from this source @ -No Did you review nursing and triage notes (agree or disagree)? Why? @ -I reviewed and agree with nursing and triage notes Were old charts reviewed (outside hosp., previous admission, EMS record, old EKG, old radiological studies, urgent care reports/EKG's, longterm records)? Report findings @ -No old charts were reviewed Differential Diagnosis (chest pain, altered mental status, abdominal pain women, abdominal pain men, vaginal bleeding, weakness, fever, dyspnea, syncope, headache, dizziness, GI bleed, back pain, seizure, CVA, palpatations, mental health, musculoskeletal)? @ -Differential Weakness: Hypoglycemia, shock, sepsis, hyponatremia, anemia, infection, MA, ETOH, adverse medicine reaction, overdose, stroke, this is not meant to be an all-inclusive list. EKG interpreted by me (3pts min.). @ -completed at 0808 sinus rhythm with a ventricular rate of 70, parable 166, QRS 89, QTc 442. No acute signs of ischemia. X-rays interpreted by me (1pt min.). @ -None done CT interpreted by me (1pt min.). @ -None done U/S interpreted by me (1pt. min.). @ -None done What testing was considered but not performed or refused? (CT, X-rays, U/S, labs)? Why? @ -None What meds were considered but not given or refused? Why? @ -None Did you discuss the management of the patient with other professionals (professionals i.e. , PA, [employer], lab, RT, psych nurse, adoption social worker, clinical data management manager, teacher, media liaison officer, keycase assembler)? Give summary @ -i spoke with internal medicine physician, Dr. Genao, with [facility] in regard to the patient's electrolyte abnormalities. Patient is accepted for admission. Was smoking cessation discussed for >3mins.? @ -No Was critical care preformed (if so, how long)? @ -No Were there social determinants of health that impacted care today? How? (Homelessness, low income, unemployed, alcoholism, drug addiction, transportation, low edu. Level, literacy, decrease access to med. care, [facility], rehab)? @ -No Was there de-escalation of care discussed even if they declined (Discuss DNR or withdrawal of care, Hospice)? DNR status @ -No What co-morbidities impacted this encounter? (DM, HTN, Smoking, COPD, CAD, Cancer, CVA, ARF, Chemo, Hep., AIDS, mental health diagnosis, sleep apnea, morbid obesity)? @ -None Was patient admitted / discharged? Hospital course, mention meds given and route, prescriptions, significant lab abnormalities, going to OR and other pertinent info. @ -29-year-old female with paresthesias and muscle cramping. On my evaluation the patient she is resting comfortably no signs of acute distress. Her vitals are stable. She is noted to have paresthesias of bilateral upper and lower extremities with no decrease in muscle strength. She would have mild contractures of the right hand. Patient has a mild facial twitching while percussing over the facial nerve which is consistent with a mild chvostek sign. Patient's ionized calcium measurement is low at 3.6. Patient is noted to have multiple electrolyte abnormalities including hypokalemia of 3.1, hypocalcemia 6.6, hypomagnesemia 0.9. Patient will be admitted for observation to internal medicine for electrolyte repletion. Case discussed with my attending Dr. Morrell Undiagnosed new problem with uncertain prognosis? @ -No Drug Therapy requiring intensive monitoring for toxicity (Heparin, Nitro, Insulin, Cardizem)? @ -No Were any procedures done? @ -No Diagnosis/symptom? @ -Hypomagnesemia, hypocalcemia, hypokalemia Acute, or Chronic, or Acute on Chronic? @ -acute Uncomplicated (without systemic symptoms) or Complicated (systemic symptoms)? @ -uncomplicated Side effects of treatment? @ -No Exacerbation, Progression, or Severe Exacerbation? @ -No Poses a threat to life or bodily function? How? (Chest pain, [place], MA, pneumonia, PE, COPD, DKA, ARF, appy, cholecystitis, CVA, Diverticulitis, Homicidal, Suicidal, threat to staff... and all critical care pts) @ -yes, can lead to potential fatal cardiac arrythmia Past Medical History Past Medical History: Hypertension, Thyroid Disorder Additional Past Medical History / Comment(s): Obstetric history: First was a spontaneous . This is her second . She's had care with me since 8 weeks gestation. Blood type is O+, and weighs negative, rubella nonimmune, RPR nonreactive, hepatitis B negative, HIV nonreactive. Her thyroid was not under control to beginning of the but I did increase her medication and it came down to normal. She had a normal maternity 21 but th at also so that she was having a female baby, ultrasound said she is having a male fetus. GBS negative. History of Any Multi-Drug Resistant Organisms: None Reported Past Surgical History: Appendectomy Additional Past Surgical History / Comment(s): Thyroidectomy Past Anesthesia/Blood Transfusion Reactions: No Reported Reaction Past Psychological History: Anxiety, Depression Smoking Status: Never smoker Past Alcohol Use History: Occasional Past Drug Use History: None Reported - Past Family History Mother Family Medical History: Hypertension, Thyroid Disorder Course Vital Signs 06/06/24 06/06/24 07:41 10:12 Temperature 98.6 F 98.1 F Pulse Rate 73 68 Respiratory 18 18 Rate Blood Pressure 111/77 102/89 O2 Sat by Pulse 99 100 Oximetry Disposition Clinical Impression: Hypomagnesemia, Hypokalemia, Hypocalcemia Disposition: ADMITTED IP TO THIS HOSP Condition: Stable Decision to Admit Reason: Admit from EC Decision Date: 06/06/24 Decision Time: 11:11
[2024-06-06 09:12] LABS: Ionized Calcium 3.6 mg/dL (4.5-5.3)
[2024-06-06 09:21] LABS: ALT 58 U/L (4-34); AST 73 U/L (14-36); African American GFR (CKD) >90 (>60 ml/min/1.73 sqM); Albumin 3.8 g/dL (3.5-5.0); Alkaline Phosphatase 60 U/L (38-126); Anion Gap 5 mmol/L; Blood Urea Nitrogen 9 mg/dL (7-17); Calcium 6.6 mg/dL (8.4-10.2); Carbon Dioxide 34 mmol/L (22-30); Chloride 101 mmol/L (98-107); Glucose 91 mg/dL (74-99); Non-African American GFR(CKD) >90 (>60 ml/min/1.73 sqM); Phosphorus 4.3 mg/dL (2.5-4.5); Potassium 3.1 mmol/L (3.5-5.1); Sodium 140 mmol/L (137-145); Total Bilirubin 0.4 mg/dL (0.2-1.3); Total Protein 6.4 g/dL (6.3-8.2)
[2024-06-06 09:27] LABS: Basophils % (A) 0 %; Eosinophils # (A) 0.1 k/uL (0-0.7); Eosinophils % (A) 1 %; HCT 38.8 % (34.0-46.0); HGB 13.5 gm/dL (11.4-16.0); Lymphocytes % (A) 39 %; MCH 30.5 pg (25.0-35.0); MCHC 34.7 g/dL (31.0-37.0); Mean Platelet Volume 7.4; Monocytes # (A) 0.4 k/uL (0-1.0); Monocytes % (A) 5 %; Neutrophils # (A) 4.3 k/uL (1.3-7.7); Neutrophils % (A) 54 %; Platelet Count 289 k/uL (150-450); RBC 4.41 m/uL (3.80-5.40); RDW 13.3 % (11.5-15.5); WBC 7.9 k/uL (3.8-10.6)
[2024-06-06 09:37] LABS: Magnesium 0.9 mg/dL (1.6-2.3)
[2024-06-06] MEDS: MAGNESIUM OXIDE 400 MG TAB PO STA (09:45)
[2024-06-06] MEDS: POTASSIUM CHLORIDE ER 20 MEQ TAB.ER PO STA ×3 (09:55→22:49)
[2024-06-06] MEDS: CALCIUM GLUCONATE IN NACL 1 GM in SALINE 1 100ML.BAG IVPB ONE ×2 (09:58→22:50)
[2024-06-06] MEDS: MAGNESIUM SULFATE-D5W PMX 1 GM in DEXTROSE/WATER 1 100ML.BAG IVPB SCH ×2 (09:58→22:51)
[2024-06-06 10:26] LABS: T4, Free (Free Thyroxine) 1.07 ng/dL (0.78-2.19)
[2024-06-06] MEDS ORDERED: NALOXONE 0.4 MG/ML 1 ML VIAL IV PRN (11:11)
--- NOTE | 2024-06-06 13:12 | P.HPIM ---
History of Present Illness Patient pleasant 29-year-old female came in with facial numbness extremity paresthesias muscle cramping consistent with hypocalcemia. Patient is found to have low calcium with ionized calcium being extremely low to around 3.6 and total calcium around 6. Patient also severely hypomagnesemic with magnesium of 0.9 patient had a recent total thyroidectomy for Brittney's thyroiditis. Patient's potassium is also low at 3.1 patient does take chlorthalidone as well for hypertension patient is on levothyroxine supplementation at this time 100 by micrograms with mildly elevated TSH of 9.40. REVIEW OF SYSTEMS: All other systems are negative except those mentioned in the HPI PHYSICAL EXAMINATION: GENERAL: The patient is alert and oriented x3, not in any acute distress. Well developed, well nourished. HEENT: Pupils are round and equally reacting to light. EOMI. No scleral icterus. No conjunctival pallor. Normocephalic, atraumatic. No pharyngeal erythema. No thyromegaly. CARDIOVASCULAR: S1 and S2 present. No murmurs, rubs, or gallops. PULMONARY: Chest is clear to auscultation, no wheezing or crackles. ABDOMEN: Soft, nontender, nondistended, normoactive bowel sounds. No palpable organomegaly. MUSCULOSKELETAL: No joint swelling or deformity. EXTREMITIES: No cyanosis, clubbing, or pedal edema. NEUROLOGICAL: Gross neurological examination did not reveal any focal deficits. SKIN: No rashes. Assessment and plan Paresthesias, muscle cramping: Secondary to hypocalcemia which is again secondary to total thyroidectomy. Patient with calcium will be aggressively replaced with patient is receiving calcium gluconate patient will be started on 500 to 1200 mg of oral calcium supplementation daily patient is already receiving vitamin D2 as an outpatient I will obtain a PTH level -Hypomagnesemia: Again secondary to thyroidectomy along with the chlorthalidone magnesium will be replaced -Hypokalemia: Secondary to chlorthalidone and hypomagnesemia which this will be replaced as well. -History of Brittney's thyroiditis start status post continue with the dose of [place] Thyroid -Hypertension patient is presently hypotensive hold of chlorthalidone -Depression continue her home meds DVT prophylaxis: Early ambulation Past Medical History Past Medical History: Hypertension, Thyroid Disorder Additional Past Medical History / Comment(s): Obstetric history: First was a spontaneous . This is her second . She's had care with me since 8 weeks gestation. Blood type is O+, and weighs negative, rubella nonimmune, RPR nonreactive, hepatitis B negative, HIV nonreactive. Her thyroid was not under control to beginning of the but I did increase her medication and it came down to normal. She had a normal maternity 21 but that also so that she was having a female baby, ultrasound said she is having a male fetus. GBS negative. History of Any Multi-Drug Resistant Organisms: None Reported Past Surgical History: Appendectomy Additional Past Surgical History / Comment(s): Thyroidectomy Past Anesthesia/Blood Transfusion Reactions: No Reported Reaction Past Psychological History: Anxiety, Depression Smoking Status: Never smoker Past Alcohol Use History: Occasional Past Drug Use History: None Reported - Past Family History Mother Family Medical History: Hypertension, Thyroid Disorder Medications and Allergies Home Medications Medication Instructions Recorded Confirmed Type Ergocalciferol [Vitamin D2 50,000 unit PO JENNINGS 02/08/19 06/06/24 History (DRISDOL)] ALPRAZolam [Xanax] 0.5 mg PO BID PRN 06/06/24 06/06/24 History Chlorthalidone 75 mg PO DAILY 06/06/24 06/06/24 History Lisdexamfetamine Dimesylate 70 mg PO DAILY 06/06/24 06/06/24 History [Vyvanse] Thyroid,Pork [Senior Backup Administrator Thyroid] 90 mg PO DAILY 06/06/24 06/06/24 History buPROPion XL [Wellbutrin XL] 300 mg PO DAILY 06/06/24 06/06/24 History calcitrioL [Rocaltrol] 0.5 mcg PO DAILY 06/06/24 06/06/24 History Allergies Allergy/AdvReac Type Severity Reaction Status Date / Time No Known Allergies Allergy Verified 06/06/24 11:52 Physical Exam Vitals: Vital Signs Temp Pulse Resp BP Pulse Ox 06/06/24 10:12 98.1 F 68 18 102/89 100 06/06/24 07:41 98.6 F 73 18 111/77 99 Intake and Output 06/05/24 06/06/24 06/06/24 22:59 06:59 14:59 Other: Weight 111.13 kg Results CBC & Chem 7: 06/06/24 08:11 06/06/24 08:11 Labs: Abnormal Lab Results - Last 24 Hours (Table) 06/06/24 Range/Units 08:11 Potassium 3.1 L (3.5-5.1) mmol/L Carbon Dioxide 34 H (22-30) mmol/L Calcium 6.6 L (8.4-10.2) mg/dL Ionized Calcium Nithin 3.6 L (4.5-5.3) mg/dL Magnesium 0.9 L* (1.6-2.3) mg/dL AST 73 H (14-36) U/L ALT 58 H (4-34) U/L TSH 9.420 H (0.465-4.680) mIU/L
[2024-06-06] MEDS: IBUPROFEN 400 MG TAB PO PRN (13:16)
[2024-06-06] MEDS: CALCIUM CARBONATE 500 MG CHEWABLE PO SCH (15:52)
[2024-06-06] MEDS: ALPRAZolam 0.5 MG TAB PO PRN (20:21)
[2024-06-06 22:17] LABS: ALT 51 U/L (4-34); AST 60 U/L (14-36); African American GFR (CKD) >90 (>60 ml/min/1.73 sqM); Albumin 3.6 g/dL (3.5-5.0); Albumin/Globulin Ratio 1.4; Alkaline Phosphatase 79 U/L (38-126); Anion Gap 4 mmol/L; Blood Urea Nitrogen 9 mg/dL (7-17); Carbon Dioxide 31 mmol/L (22-30); Chloride 103 mmol/L (98-107); Globulin 2.6 g/dL; Glucose 96 mg/dL (74-99); Magnesium 1.3 mg/dL (1.6-2.3); Non-African American GFR(CKD) >90 (>60 ml/min/1.73 sqM); Potassium 3.3 mmol/L (3.5-5.1); Sodium 138 mmol/L (137-145); Total Bilirubin 0.3 mg/dL (0.2-1.3); Total Protein 6.2 g/dL (6.3-8.2)
[2024-06-06 22:21] LABS: Calcium 6.3 mg/dL (8.4-10.2)
[2024-06-07] MEDS: ACETAMINOPHEN TAB 325 MG TAB PO PRN (07:59)
[2024-06-07] MEDS ORDERED: THYROID, PORK 30 MG TAB PO SCH (09:00)
[2024-06-07] MEDS ORDERED: ERGOCALCIFEROL 1,250 MCG (50,000 IU) CAPSULE PO SCH (09:00)
[2024-06-07] MEDS ORDERED: THYROID PORK 90 MG PO SCH (09:00)
[2024-06-07 09:57] LABS: Basophils # (A) 0.02 X 10*3/uL (0.00-0.10); Basophils % (A) 0.3 %; Eosinophils # (A) 0.09 X 10*3/uL (0.04-0.35); Eosinophils % (A) 1.4 %; HCT 37.3 % (37.2-46.3); HGB 12.7 g/dL (12.0-15.0); Lymphocytes # (A) 2.82 X 10*3/uL (0.90-5.00); Lymphocytes % (A) 43.5 %; MCH 29.9 pg (27.0-32.0); MCV 87.8 FL (80.0-97.0); Mean Platelet Volume 9.6 FL (9.5-12.2); Monocytes # (A) 0.52 X 10*3/uL (0.20-1.00); NRBC Per 100 WBC 0 X 10*3/uL (0.00-0.01); Neutrophils # (A) 3.02 X 10*3/uL (1.80-7.70); Neutrophils % (A) 46.6 %; Platelet Count 296 X 10*3/uL (140-440); RBC 4.25 X 10*6/uL (4.10-5.20); RDW 13.1 % (11.5-14.5); WBC 6.48 X 10*3/uL (4.50-10.00)
[2024-06-07 10:26] LABS: ALT 46 U/L (8-44); AST 47 U/L (13-35); Albumin 3.5 g/dL (3.8-4.9); Albumin/Globulin Ratio 1.46 Ratio (1.60-3.17); Alkaline Phosphatase 61 U/L (41-126); BUN/Creat Ratio 11.86 Ratio (12.00-20.00); Blood Urea Nitrogen 8.3 mg/dL (9.0-27.0); Calcium 6.5 mg/dL (8.7-10.3); Carbon Dioxide 27.7 mmol/L (21.6-31.8); Chloride 103 mmol/L (96-109); Globulin 2.4 g/dL (1.6-3.3); Glucose 94 mg/dL (70-110); Magnesium 1.2 mg/dL (1.5-2.4); Phosphorus 3.6 mg/dL (2.4-5.1); Potassium 3.6 mmol/L (3.5-5.5); Sodium 141 mmol/L (135-145); Total Bilirubin 0.2 mg/dL (0.3-1.2); Total Protein 5.9 g/dL (6.2-8.2)
[2024-06-07] MEDS: ERGOCALCIFEROL 1,250 MCG (50,000 IU) CAPSULE PO SCH (10:35)
[2024-06-07] MEDS: THYROID, PORK 30 MG TAB PO SCH (10:35)
[2024-06-07] MEDS: buPROPion XL 300 MG TAB.ER.24H PO SCH (10:35)
[2024-06-07] MEDS ORDERED: Potassium Replacement Protocol 1 EACH MISC MISCELLANE PRN (12:42)
[2024-06-07] MEDS ORDERED: Magnesium Replacement Protocol 1 EACH MISC MISCELLANE PRN (12:42)
[2024-06-07] MEDS: POTASSIUM CHLORIDE ER 20 MEQ TAB.ER PO SCH (13:43)
[2024-06-07] MEDS: MAGNESIUM SULFATE-D5W PMX 1 GM in DEXTROSE/WATER 1 100ML.BAG IVPB SCH (13:45)
[2024-06-08 04:46] LABS: ALT 49 U/L (4-34); AST 52 U/L (14-36); African American GFR (CKD) >90 (>60 ml/min/1.73 sqM); Albumin 3.2 g/dL (3.5-5.0); Albumin/Globulin Ratio 1.2; Alkaline Phosphatase 66 U/L (38-126); Anion Gap 5 mmol/L; Blood Urea Nitrogen 9 mg/dL (7-17); Calcium 6.5 mg/dL (8.4-10.2); Carbon Dioxide 27 mmol/L (22-30); Chloride 106 mmol/L (98-107); Globulin 2.6 g/dL; Glucose 94 mg/dL (74-99); Non-African American GFR(CKD) >90 (>60 ml/min/1.73 sqM); Potassium 3.8 mmol/L (3.5-5.1); Sodium 138 mmol/L (137-145); Total Bilirubin 0.3 mg/dL (0.2-1.3); Total Protein 5.8 g/dL (6.3-8.2)
--- NOTE | 2024-06-08 06:09 | P.PN ---
Subjective Progress Note Date: 06/07/24 Patient pleasant 29-year-old female came in with facial numbness extremity paresthesias muscle cramping consistent with hypocalcemia. Patient is found to have low calcium with ionized calcium being extremely low to around 3.6 and total calcium around 6. Patient also severely hypomagnesemic with magnesium of 0.9 patient had a recent total thyroidectomy for Brittney's thyroiditis. Patient's potassium is also low at 3.1 patient does take chlorthalidone as well for hypertension patient is on levothyroxine supplementation at this time 100 by micrograms with mildly elevated TSH of 9.40. 06/07/2024 Patient is seen in follow-up today continues to report hand cramping and uncomfortable with multiple electrolyte abnormalities. Magnesium 1.3 along with potassium 3.5 and calcium continues to be around 6. Will replace per protocol and follow-up with repeat labs. Mother at the bedside with questions and concerns that were answered. They are extremely concerned with her continued muscle cramping. Incision site on the thyroid appears clean dry and intact at this time. Patient is afebrile with no reports of chest pain or shortness of breath. Patient tolerating some diet although not eating very much. Review of systems: Constitutional: No reports of fatigue, fever, or chills Cardiovascular: No reports of chest pain or palpitations Respiratory: No reports of shortness of breath or cough GI: No reports of nausea, vomiting, or diarrhea, reports not much of an appetite : No reports of dysuria or retention Neurovascular: No reports of weakness or numbness, reports continued cramping in the hands PHYSICAL EXAMINATION: GENERAL: The patient is alert and oriented x3, not in any acute distress. Well developed, well nourished. Morbidly obese HEENT: Pupils are round and equally reacting to light. EOMI. No scleral icterus. No conjunctival pallor. Normocephalic, atraumatic. No pharyngeal erythema. No thyromegaly. Surgical incision site is clean dry and intact anteriorly status post thyroidectomy last CARDIOVASCULAR: S1 and S2 present. No murmurs, rubs, or gallops. PULMONARY: Chest is clear to auscultation, no wheezing or crackles. ABDOMEN: Soft, obese, nontender, nondistended, normoactive bowel sounds. No palpable organomegaly. MUSCULOSKELETAL: No joint swelling or deformity. EXTREMITIES: No cyanosis, clubbing, or pedal edema. NEUROLOGICAL: Gross neurological examination did not reveal any focal deficits. SKIN: No rashes. Assessment and plan Paresthesias, muscle cramping: Secondary to hypocalcemia which is again secondary to total thyroidectomy. Patient with calcium will be aggressively replaced with patient is receiving calcium gluconate patient will be started on 500 to 1200 mg of oral calcium supplementation daily patient is already receiving vitamin D2 as an outpatient -Hypomagnesemia: Again secondary to thyroidectomy along with the chlorthalidone, magnesium will be replaced as magnesium is 1.3 today -Hypokalemia: Secondary to chlorthalidone and hypomagnesemia which this will be replaced as well. Potassium 3.5 -History of Brittney's thyroiditis status post total thyroidectomy last . Continue with the dose of [place] Thyroid -Hypertension patient is presently hypotensive hold of chlorthalidone -Depression continue her home meds DVT prophylaxis: Early ambulation Plan: Continue to replace calcium, magnesium, potassium per protocol and will follow- up with repeat labs Mother is concerned at the bedside as patient continues to have significant cramping and pain in her hands. Will monitor overnight with possible discharge planning in the next 24 hours The impression and plan of care has been dictated by Mary Alice Butler, Nurse Practitioner as directed. Dr. Laura MD I have performed a history and examination and MDM of this patient, discussed the same with the dictator, and agree with the dictator's assessment and plan as written ,documented as a scribe. Based on total visit time, I have performed more than 50% of the visit. Objective - Vital Signs Vital signs: Vital Signs Temp 97.9 F 06/07/24 08:30 Pulse 77 06/07/24 08:30 Resp 17 06/07/24 08:30 BP 112/71 06/07/24 08:30 Pulse Ox 98 06/07/24 08:30 FiO2 Intake & Output 06/06/24 06/07/24 06/07/24 18:59 06:59 18:59 Weight 111.13 kg - Labs CBC & Chem 7: 06/07/24 06:25 06/08/24 04:05 Labs: Abnormal Lab Results - Last 24 Hours (Table) 06/06/24 06/06/24 Range/Units 08:11 21:43 Potassium 3.3 L (3.5-5.1) mmol/L Carbon Dioxide 31 H (22-30) mmol/L Calcium 6.3 L* (8.4-10.2) mg/dL Magnesium 1.3 L (1.6-2.3) mg/dL AST 60 H (14-36) U/L ALT 51 H (4-34) U/L Total Protein 6.2 L (6.3-8.2) g/dL PTH Intact 3.1 L (14.0-72.0) pg/mL
[2024-06-08] MEDS: MAGNESIUM SULFATE-D5W PMX 1 GM in DEXTROSE/WATER 1 100ML.BAG IVPB SCH ×2 (12:47→17:31)
[2024-06-08] MEDS: CALCIUM GLUCONATE IN NACL 2 GM in SALINE 1 100ML.BAG IVPB ONE (14:24)
--- NOTE | 2024-06-08 15:31 | P.PN ---
Subjective Progress Note Date: 06/08/24 Hospital Course: Patient pleasant 29-year-old female came in with facial numbness extremity paresthesias muscle cramping consistent with hypocalcemia. Patient is found to have low calcium with ionized calcium being extremely low to around 3.6 and total calcium around 6. Patient also severely hypomagnesemic with magnesium of 0.9 patient had a recent total thyroidectomy for Brittney's thyroiditis. Patient's potassium is also low at 3.1 patient does take chlorthalidone as well for hypertension patient is on levothyroxine supplementation at this time 100 by micrograms with mildly elevated TSH of 9.40. 06/07/2024 Patient is seen in follow-up today continues to report hand cramping and uncomfortable with multiple electrolyte abnormalities. Magnesium 1.3 along with potassium 3.5 and calcium continues to be around 6. Will replace per protocol and follow-up with repeat labs. Mother at the bedside with questions and concerns that were answered. They are extremely concerned with her continued muscle cramping. Incision site on the thyroid appears clean dry and intact at this time. Patient is afebrile with no reports of chest pain or shortness of breath. Patient tolerating some diet although not eating very much. 06/08/2024 Patient is seen in follow-up today. No acute events overnight continues to report mild paresthesia in both hands. She states that the cramping has gone down. Pertinent positives and negatives as discussed above, a complete review of systems was performed and all other systems are negative. Vitals: Signs Reviewed Data Received Today: Pertinent Labs: Calcium 6.5, potassium 3.8, magnesium 1.4 Imaging: No new pertinent imaging. Physical Exam: General: nontoxic, no distress, appears at stated age Derm: warm, dry, intact Head: atraumatic, normocephalic, symmetric Eyes: EOMI, anicteric sclera Mouth: no lip lesion, mucus membranes moist Cardiovascular: S1 S2 reg, no murmur, rubs, or gallops Lungs: CTA bilateral, no rhonchi, no rales, no accessory muscle use Abdominal: soft, non-tender to palpataion, no appreciable organomegaly Extremities: no gross muscle atrophy, no edema, no contractures Neuro: Alert, Oriented, CNII-XII grossly intact, gait normal Psych: well appearing, appropriate affect Assessment and Plan: Patient is a 29-year-old female with past medical history of Brittney thyroiditis status post total thyroidectomy presenting with facial numbness and bilateral extremity paresthesias. #. Paresthesia, muscle cramping in the setting of hypocalcemia likely secondary to total thyroidectomy Replace calcium with calcium gluconate Increase Calcitrol 0.5 mg p.o. daily to twice daily Vitamin D 2 1250 mcg p.o. Calcium gluconate and NaCl 2 g / 100 mL-NaCl IVPB once Follow-up CMP #. Hypomagnesemia Magnesium 1.4 3 g IV magnesium sulfate ordered Increase Tums to 1000 mg p.o. 3 times daily Follow-up CMP #. History of Brittney's thyroiditis status post total thyroidectomy last Continue with dose of [place] Thyroid #. Hypokalemia, resolved Continue to monitor with follow-up BMP #. Hypertension Continue to hold chlorthalidone due to borderline low BP #. Anxiety/depression Continue with home meds F: N/A E: Replete electrolytes as needed N: Regular diet A: Ambulatory DVT ppx: Early ambulation Objective - Vital Signs Vital signs: Vital Signs Temp 97.6 F 06/08/24 07:00 Pulse 73 06/08/24 07:00 Resp 17 06/08/24 07:00 BP 121/73 06/08/24 07:00 Pulse Ox 96 06/08/24 07:00 FiO2 Intake & Output 06/07/24 06/08/24 06/08/24 18:59 06:59 18:59 Weight 111.13 kg Other: # Voids 1 1 - Labs CBC & Chem 7: 06/07/24 06:25 06/08/24 04:05 Labs: Abnormal Lab Results - Last 24 Hours (Table) 06/07/24 06/08/24 Range/Units 06:25 04:05 BUN 8.3 L (9.0-27.0) mg/dL BUN/Creatinine Ratio 11.86 L (12.00-20.00) Ratio Calcium 6.5 L 6.5 L (8.7-10.3) mg/dL Magnesium 1.2 L (1.5-2.4) mg/dL Total Bilirubin 0.2 L (0.3-1.2) mg/dL AST 47 H 52 H (13-35) U/L ALT 46 H 49 H (8-44) U/L Total Protein 5.9 L 5.8 L (6.2-8.2) g/dL Albumin 3.5 L 3.2 L (3.8-4.9) g/dL Albumin/Globulin Ratio 1.46 L (1.60-3.17) Ratio
[2024-06-08 15:49] VITALS: BMI 47.8
[2024-06-08] MEDS: CALCIUM CARBONATE 500 MG CHEWABLE PO SCH (17:29)
[2024-06-09 08:28] VITALS: RESP 17
[2024-06-09 08:53] LABS: Basophils # (A) 0.03 X 10*3/uL (0.00-0.10); Basophils % (A) 0.4 %; Eosinophils # (A) 0.24 X 10*3/uL (0.04-0.35); Eosinophils % (A) 3.3 %; HCT 36.5 % (37.2-46.3); HGB 12.5 g/dL (12.0-15.0); Lymphocytes # (A) 2.57 X 10*3/uL (0.90-5.00); MCHC 34.2 g/dL (32.0-37.0); MCV 87.5 FL (80.0-97.0); Mean Platelet Volume 9.6 FL (9.5-12.2); Monocytes # (A) 0.48 X 10*3/uL (0.20-1.00); Monocytes % (A) 6.5 %; NRBC Per 100 WBC 0 X 10*3/uL (0.00-0.01); Neutrophils % (A) 54.5 %; Platelet Count 316 X 10*3/uL (140-440); RBC 4.17 X 10*6/uL (4.10-5.20); RDW 12.9 % (11.5-14.5); WBC 7.34 X 10*3/uL (4.50-10.00)
[2024-06-09 09:04] LABS: ALT 49 U/L (8-44); AST 37 U/L (13-35); Albumin 3.5 g/dL (3.8-4.9); Albumin/Globulin Ratio 1.46 Ratio (1.60-3.17); Alkaline Phosphatase 65 U/L (41-126); BUN/Creat Ratio 14.86 Ratio (12.00-20.00); Blood Urea Nitrogen 10.4 mg/dL (9.0-27.0); Calcium 7.4 mg/dL (8.7-10.3); Carbon Dioxide 24.8 mmol/L (21.6-31.8); Chloride 105 mmol/L (96-109); Globulin 2.4 g/dL (1.6-3.3); Glucose 104 mg/dL (70-110); Magnesium 1.4 mg/dL (1.5-2.4); Potassium 3.7 mmol/L (3.5-5.5); Sodium 143 mmol/L (135-145); Total Bilirubin <0.2 mg/dL (0.3-1.2); Total Protein 5.9 g/dL (6.2-8.2)
[2024-06-09] MEDS: MAGNESIUM SULFATE-D5W PMX 1 GM in DEXTROSE/WATER 1 100ML.BAG IVPB SCH (10:27)
[2024-06-09 14:44] VITALS: BP 92/64; PULSE 87; TEMP 98.1
--- NOTE | 2024-06-09 14:54 | P.DS ---
Providers Date of admission: 06/08/24 11:03 Discharge Diagnosis: Paresthesia, muscle cramping in the setting of hypocalcemia likely secondary to total thyroidectomy Hypomagnesemia History of Brittney thyroiditis status post total thyroidectomy Hypokalemia Hypertension Anxiety Depression Hospital Course: Patient pleasant 29-year-old female came in with facial numbness extremity paresthesias muscle cramping consistent with hypocalcemia. Patient is found to have low calcium with ionized calcium being extremely low to around 3.6 and total calcium around 6. Patient also severely hypomagnesemic with magnesium of 0.9 patient had a recent total thyroidectomy for Brittney's thyroiditis. Patient's potassium is also low at 3.1 patient does take chlorthalidone as well for hypertension patient is on levothyroxine supplementation at this time 100 by micrograms with mildly elevated TSH of 9.40. 06/07/2024 Patient is seen in follow-up today continues to report hand cramping and uncomfortable with multiple electrolyte abnormalities. Magnesium 1.3 along with potassium 3.5 and calcium continues to be around 6. Will replace per protocol and follow-up with repeat labs. Mother at the bedside with questions and concerns that were answered. They are extremely concerned with her continued muscle cramping. Incision site on the thyroid appears clean dry and intact at this time. Patient is afebrile with no reports of chest pain or shortness of breath. Patient tolerating some diet although not eating very much. 06/08/2024 Patient is seen in follow-up today. No acute events overnight continues to report mild paresthesia in both hands. She states that the cramping has gone down. 06/09/2024 Patient is seen in follow up today. No acute events overnight. She reports of no parathesisas and cramping in her hands. Patient with marked improvement with calcium 6.5 => 7.4. Patient will be discharged with calcium carbonate 1000 mg p.o. 3 times daily, magnesium oxide 400 mg p.o. 3 times daily, calcitriol 0.5 mcg p.o. twice daily. Chlorthalidone was discontinued. Should have close follow-up with PCP and is to obtain follow-up BMP and magnesium on Saturday. Patient will cut down new on meds depending on lab results. She is being discharged home. Vital signs reviewed and stable. Physical Exam: General: nontoxic, no distress, appears at stated age Derm: warm, dry, intact Head: atraumatic, normocephalic, symmetric Eyes: EOMI, anicteric sclera Mouth: no lip lesion, mucus membranes moist Cardiovascular: S1 S2 reg, no murmur, rubs, or gallops Lungs: CTA bilateral, no rhonchi, no rales, no accessory muscle use Abdominal: soft, non-tender to palpataion, no appreciable organomegaly Extremities: no gross muscle atrophy, no edema, no contractures Neuro: Alert, Oriented, CNII-XII grossly intact, gait normal Psych: well appearing, appropriate affect A total of greater than 30 minutes of time were spent preparing this complex discharge summary. Patient was discharge on June 09, 2024 at 1:37 PM. Expected date of discharge: 06/09/24 Attending physician: Shhaeen Genao MD Primary care physician: Víctor Dodson Patient Condition at Discharge: Stable Plan - Discharge Summary Discharge Rx Participant: No New Discharge Prescriptions: New Calcium Carbonate [Tums] 1,000 mg PO TID #90 tab Magnesium Oxide [Mag-Ox] 400 mg PO TID #90 tablet calcitrioL [Rocaltrol] 0.5 mcg PO BID #60 cap Continue Ergocalciferol [Vitamin D2 (DRISDOL)] 50,000 unit PO JENNINGS buPROPion XL [Wellbutrin XL] 300 mg PO DAILY Lisdexamfetamine Dimesylate [Vyvanse] 70 mg PO DAILY Thyroid,Pork [Spacer Type Bar And Segment Thyroid] 90 mg PO DAILY ALPRAZolam [Xanax] 0.5 mg PO BID PRN PRN Reason: Anxiety Discontinued Chlorthalidone 75 mg PO DAILY calcitrioL [Rocaltrol] 0.5 mcg PO DAILY Discharge Medication List Ergocalciferol [Vitamin D2 (DRISDOL)] 50,000 unit PO JENNINGS 02/08/19 [History] ALPRAZolam [Xanax] 0.5 mg PO BID PRN 06/06/24 [History] Lisdexamfetamine Dimesylate [Vyvanse] 70 mg PO DAILY 06/06/24 [History] Thyroid,Pork [Spacer Type Bar And Segment Thyroid] 90 mg PO DAILY 06/06/24 [History] buPROPion XL [Wellbutrin XL] 300 mg PO DAILY 06/06/24 [History] Calcium Carbonate [Tums] 1,000 mg PO TID #90 tab 06/09/24 [Rx] Magnesium Oxide [Mag-Ox] 400 mg PO TID #90 tablet 06/09/24 [Rx] calcitrioL [Rocaltrol] 0.5 mcg PO BID #60 cap 06/09/24 [Rx] Follow up Appointment(s)/Referral(s): Víctor Dodson DO [Primary Care Provider] - 1-2 days Ambulatory/Diagnostic Orders: Basic Metabolic Panel [LAB.AMB] Location: None Selected Magnesium [LAB.AMB] Location: None Selected Discharge Disposition: HOME SELF-CARE
== END 2024-06-09 14:56 | disposition home or self-care (01) | DRG 425 ==
LOC: EC 07:40 → 6NMEDSUR 11:18 → 4SSUR 06-07 02:04 → OBSVTOIN 06-08 11:03
PROVIDERS: ADMIT Internal Medicine; ATTEND Internal Medicine
DX: E83.51 Hypocalcemia (principal); R22.0 Localized swelling, mass and lump, head; E83.42 Hypomagnesemia; E87.6 Hypokalemia; E89.0 Postprocedural hypothyroidism; F32.A Depression, unspecified; I95.9 Hypotension, unspecified; R25.2 Cramp and spasm; T50.2X5A Adverse effect of carbonic-anhydrase inhibitors, benzothiadiazides and other diuretics, initial encounter; F41.9 Anxiety disorder, unspecified; I10 Essential (primary) hypertension; Z79.890 Hormone replacement therapy; Z79.899 Other long term (current) drug therapy; Z82.49 Family history of ischemic heart disease and other diseases of the circulatory system; X58.XXXA Exposure to other specified factors, initial encounter; Z87.19 Personal history of other diseases of the digestive system
CPT/HCPCS: 36415; 80053; 82330; 83735; 83970; 84100; 84439; 84443; 85025; 93005; 96365; 96366; 96375; 99285

== ENCOUNTER → 2024-09-02 | Outpatient (CLI) | payer OTHER ==
[2024-09-02 19:12] LABS: Basophils # (A) 0.04 X 10*3/uL (0.00-0.10); Basophils % (A) 0.5 %; Eosinophils # (A) 0.17 X 10*3/uL (0.04-0.35); Eosinophils % (A) 2.2 %; Lymphocytes # (A) 3.09 X 10*3/uL (0.90-5.00); MCH 29.9 pg (27.0-32.0); MCHC 33.3 g/dL (32.0-37.0); MCV 89.6 FL (80.0-97.0); Mean Platelet Volume 10.2 FL (9.5-12.2); Monocytes # (A) 0.36 X 10*3/uL (0.20-1.00); Monocytes % (A) 4.7 %; NRBC Per 100 WBC 0 X 10*3/uL (0.00-0.01); Neutrophils # (A) 4.05 X 10*3/uL (1.80-7.70); Neutrophils % (A) 52.3 %; Platelet Count 328 X 10*3/uL (140-440); RBC 5.02 X 10*6/uL (4.10-5.20); RDW 14.5 % (11.5-14.5); WBC 7.73 X 10*3/uL (4.50-10.00)
[2024-09-02 19:29] LABS: ALT 62 U/L (8-44); AST 77 U/L (13-35); Albumin 4.8 g/dL (3.8-4.9); Albumin/Globulin Ratio 1.66 Ratio (1.60-3.17); Alkaline Phosphatase 64 U/L (41-126); BUN/Creat Ratio 7.59 Ratio (12.00-20.00); Blood Urea Nitrogen 12.9 mg/dL (9.0-27.0); C Reactive Protein <0.30 mg/dL (0.00-0.80); Calcium 9.8 mg/dL (8.7-10.3); Carbon Dioxide 28.3 mmol/L (21.6-31.8); Chloride 99 mmol/L (96-109); Creatine Kinase 1878 U/L (26-186); Globulin 2.9 g/dL (1.6-3.3); Glucose 84 mg/dL (70-110); Magnesium 1.8 mg/dL (1.5-2.4); Potassium 4.2 mmol/L (3.5-5.5); Rheumatoid Factor, Qnt <15 IU/mL (0-15); Sodium 140 mmol/L (135-145); Total Bilirubin 0.4 mg/dL (0.3-1.2); Total Protein 7.7 g/dL (6.2-8.2)
[2024-09-02 19:54] LABS: Erythrocyte Sedimentation Rate 14 mm/Hr (0-20)
== END | disposition home or self-care (01) ==
LOC: LABWHC1 13:59
PROVIDERS: ATTEND Nurse Practitioner Family
DX: I10 Essential (primary) hypertension (principal); M62.81 Muscle weakness (generalized)
CPT/HCPCS: 36415; 80053; 82550; 83735; 85025; 85652; 86038; 86140; 86431

== ENCOUNTER → 2024-09-11 | Outpatient (CLI) | payer OTHER ==
--- NOTE | 2024-09-11 13:21 | PE ---
EXAMINATION TYPE: PET CT fusion skull to thigh DATE OF EXAM: 09/11/2024 COMPARISON: NONE HISTORY: Thyroid cancer with history of thyroidectomy June 04, 2024 TECHNIQUE: Following the intravenous administration of 11.72 mCi of F-18 FDG, whole body images are performed from the skull base to the midthigh. Images are reviewed on the computer in the coronal, a xial, and sagittal planes. Reconstructed rotating images are created on independent workstation and reviewed on the computer. A localization and attenuation correction CT is performed in conjunction with the PET scan. Blood glucose level equals 88 SCAN: Subsequent Scan FINDINGS: HEAD AND NECK: In a few surgical clips at level of the thyroid bed. No suspicious hypermetabolic upt tali at this level is seen. No suspicious hypermetabolic uptake in the neck. CHEST, MEDIASTINUM, AND HILAR REGION: No abnormal hypermetabolic uptake. ABDOMEN AND PELVIS: Normal excretion. No abnormal hypermetabolic uptake. OSSEOUS STRUCTURES: No abnormal hypermetabolic uptake. OTHER CT: Cholecystectomy clips are present. There is 3.2 cm thin-walled cyst or cystic lesion in the left ovary on axial image 215. IMPRESSION: No areas of suspicious hypermetabolic uptake to suggest local or distal thyroid neoplasti c recurrence. If the lab values rise consider additional imaging evaluation. [facility], , 09/11/2024 1:18 PM
== END | disposition home or self-care (01) ==
LOC: RADPETMAIN 08:44
PROVIDERS: ATTEND Family Medicine
DX: C73 Malignant neoplasm of thyroid gland (principal)
CPT/HCPCS: 78815; A9552

== ENCOUNTER → 2024-09-15 | Outpatient (CLI) | payer OTHER ==
[2024-09-15 19:51] LABS: Magnesium 1.6 mg/dL (1.5-2.4); T4, Free (Free Thyroxine) 0.81 ng/dL (0.80-1.80)
== END | disposition home or self-care (01) ==
LOC: LABWHC1 14:39
PROVIDERS: ATTEND Family Medicine
DX: E06.3 Autoimmune thyroiditis (principal)
CPT/HCPCS: 36415; 83735; 84439; 84443; 84481

== ENCOUNTER 2024-09-18 18:05 | Inpatient (IN) | payer OTHER ==
--- NOTE | 2024-09-18 18:39 | ED ---
General Adult HPI - General Chief complaint: Recheck/Abnormal Lab/Rx Stated complaint: weakness Time Seen by Provider: 09/18/24 18:19 Source: patient, family, RN notes reviewed Mode of arrival: ambulatory Limitations: no limitations - History of Present Illness Initial comments: Patient is a 29-year-old female present to the emergency department with co ncerns with elevated CPK level. Patient states she had it checked twice as an outpatient and was elevated. Mother believes the number is 1400. Patient has some mild fatigue otherwise no specific complaints. No trauma. No significant inactivity. Patient does have history of thyroid cancer with thyroidectomy just over 3 months ago. Patient did have complication of electrolyte disorders following it. - Related Data Home Medications Medication Instructions Recorded Confirmed Ergocalciferol [Vitamin D2 50,000 unit PO GRANDE 02/08/19 06/06/24 (DRISDOL)] ALPRAZolam [Xanax] 0.5 mg PO BID PRN 06/06/24 06/06/24 Lisdexamfetamine Dimesylate 70 mg PO DAILY 06/06/24 06/06/24 [Vyvanse] Thyroid,Pork [Director Of Business Systems Thyroid] 90 mg PO DAILY 06/06/24 06/06/24 buPROPion XL [Wellbutrin XL] 300 mg PO DAILY 06/06/24 06/06/24 Previous Rx's Medication Instructions Recorded Calcium Carbonate [Tums] 1,000 mg PO TID #90 tab 06/09/24 Magnesium Oxide [Mag-Ox] 400 mg PO TID #90 tablet 06/09/24 calcitrioL [Rocaltrol] 0.5 mcg PO BID #60 cap 06/09/24 Allergies Allergy/AdvReac Type Severity Reaction Status Date / Time No Known Allergies Allergy Verified 09/18/24 18:14 Review of Systems ROS Statement: Those systems with pertinent positive or pertinent negative responses have been documented in the HPI. ROS Other: All systems not noted in ROS Statement are negative. Constitutional: Denies: fever Eyes: Denies: eye pain ENT: Denies: ear pain Respiratory: Denies: dyspnea Cardiovascular: Denies: palpitations Endocrine: Reports: fatigue Gastrointestinal: Denies: abdominal pain Musculoskeletal: Denies: back pain Past Medical History Past Medical History: Cancer, Hypertension, Thyroid Disorder Additional Past Medical History / Comment(s): thyroid ca History of Any Multi-Drug Resistant Organisms: None Reported Past Surgical History: Appendectomy, Cholecystectomy Additional Past Surgical History / Comment(s): Thyroidectomy Past Anesthesia/Blood Transfusion Reactions: No Reported Reaction Past Psychological History: Anxiety, Depression Smoking Status: Never smoker Past Alcohol Use History: Occasional Past Drug Use History: None Reported - Past Family History Mother Family Medical History: Hypertension, Thyroid Disorder General Exam Limitations: no limitations General appearance: alert, in no apparent distress Head exam: Present: normocephalic Eye exam: Present: normal appearance Neck exam: Present: normal inspection Respiratory exam: Present: normal lung sounds bilaterally Cardiovascular Exam: Present: regular rate, normal rhythm, normal heart sounds GI/Abdominal exam: Present: soft. Absent: tenderness Extremities exam: Present: normal inspection Neurological exam: Present: alert Psychiatric exam: Present: normal affect, normal mood Skin exam: Present: normal color Course Vital Signs 09/18/24 18:15 Temperature 98.4 F Pulse Rate 95 Respiratory 18 Rate Blood Pressure 109/79 O2 Sat by Pulse 100 Oximetry EKG Findings - EKG Results: EKG: interpreted by ERMD, sinus rhythm, normal axis, normal QRS, normal ST/T Medical Decision Making - Medical Decision Making Was pt. sent in by a medical professional or institution (, PA, STREET LIGHT SERVICER SUPERVISOR, urgent care, hospital, or [facility]...) When possible be specific @ -Patient was sent in by Dr. Dodson Did you speak to anyone other than the patient for history (EMS, parent, family, police, friend...)? What history was obtained from this source @ -Family is present that helps provide outpatient creatinine kinase level of 1400 Did you review nursing and triage notes (agree or disagree)? Why? @ -I reviewed and agree with nursing and triage notes Were old charts reviewed (outside hosp., previous admission, EMS record, old EKG, old radiological studies, urgent care reports/EKG's, [facility] records)? Report findings @ -Outpatient lab reviewed with creatinine kinase previously weighed around 1400 Differential Diagnosis (chest pain, altered mental status, abdominal pain women, abdominal pain men, vaginal bleeding, weakness, fever, dyspnea, syncope, headache, dizziness, GI bleed, back pain, seizure, CVA, palpatations, mental health, musculoskeletal)? @ -Differential Weakness: Hypoglycemia, shock, sepsis, hyponatremia, anemia, infection, MA, ETOH, adverse medicine reaction, overdose, stroke, this is not meant to be an all-inclusive list. EKG interpreted by me (3pts min.). @ -As above X-rays interpreted by me (1pt min.). @ -Chest x-ray shows no acute process CT interpreted by me (1pt min.). @ -None done U/S interpreted by me (1pt. min.). @ -None done What testing was considered but not performed or refused? (CT, X-rays, U/S, labs)? Why? @ -TASH ordered What meds were considered but not given or refused? Why? @ -None Did you discuss the management of the patient with other professionals (professionals i.e. DrKati, PA, STRE[employer] LIGHT SERVICER SUPERVISOR, lab, RT, psych nurse, professor of social work, mechanical maintenance instructor, teacher, community liaison officer, housing case manager)? Give summary @ -Case was discussed with Dr. Garrett who will admit covering Dr. Dodson Was smoking cessation discussed for >3mins.? @ -No Was critical care preformed (if so, how long)? @ -No Were there social determinants of health that impacted care today? How? (Homelessness, low income, unemployed, alcoholism, drug addiction, transportation, low edu. Level, literacy, decrease access to med. care, residential, rehab)? @ -No Was there de-escalation of care discussed even if they declined (Discuss DNR or withdrawal of care, Hospice)? DNR status @ -No What co-morbidities impacted this encounter? (DM, HTN, Smoking, COPD, CAD, Cancer, CVA, ARF, Chemo, Hep., AIDS, mental health diagnosis, sleep apnea, morbi d obesity)? @ -History of recent thyroid cancer with thyroidectomy and electrolyte abnormality Was patient admitted / discharged? Hospital course, mention meds given and route, prescriptions, significant lab abnormalities, going to OR and other pertinent info. @ -Patient presents with elevated CPK. Etiology is unclear. Patient will be admitted for IV fluids and further evaluation. Admission orders written. Patient and family updated. Undiagnosed new problem with uncertain prognosis? @ -No Drug Therapy requiring intensive monitoring for toxicity (Heparin, Nitro, Insulin, Cardizem)? @ -No Were any procedures done? @ -No Diagnosis/symptom? @ -Elevated creatinine kinase Acute, or Chronic, or Acute on Chronic? @ -Acute Uncomplicated (without systemic symptoms) or Complicated (systemic symptoms)? @ -Complicated with mild hypocalcemia Side effects of treatment? @ -No Exacerbation, Progression, or Severe Exacerbation? @ -No Poses a threat to life or bodily function? How? (Chest pain, USA, MA, pneumonia, PE, COPD, DKA, ARF, appy, cholecystitis, CVA, Diverticulitis, Homicidal, [place] icidal, threat to staff... and all critical care pts) @ -Threat to neuromuscular function - Lab Data Result diagrams: 09/18/24 19:03 09/18/24 19:03 Lab Results 09/18/24 09/18/24 09/18/24 Range/Units 19: 19:03 19:03 WBC 7.2 (3.8-10.6) k/uL RBC 3.98 (3.80-5.40) m/uL Hgb 12.4 (11.4-16.0) gm/dL Hct 36.2 (34.0-46.0) % MCV 91.1 (80.0-100.0) fL MCH 31.3 (25.0-35.0) pg MCHC 34.3 (31.0-37.0) g/dL RDW 13.9 (11.5-15.5) % Plt Count 306 (150-450) k/uL MPV 6.9 Neutrophils % 58 % Lymphocytes % 33 % Monocytes % 5 % Eosinophils % 1 % Basophils % 1 % Neutrophils # 4.2 (1.3-7.7) k/uL Lymphocytes # 2.4 (1.0-4.8) k/uL Monocytes # 0.3 (0-1.0) k/uL Eosinophils # 0.1 (0-0.7) k/uL Basophils # 0.1 (0-0.2) k/uL PT 10.5 (10.0-12.5) sec INR 0.9 (<1.2) APTT 28.3 (22.0-30.0) sec Sodium 137 (137-145) mmol/L Potassium 3.8 (3.5-5.1) mmol/L Chloride 100 (98-107) mmol/L Carbon Dioxide 28 (22-30) mmol/L Anion Gap 9 mmol/L BUN 16 (7-17) mg/dL Creatinine 1.03 (0.52-1.04) mg/dL Est GFR (CKD-EPI)AfAm 86 (>60 ml/min/1.73 sqM) Est GFR (CKD-EPI)NonAf 74 (>60 ml/min/1.73 sqM) Glucose 91 (74-99) mg/dL Plasma Lactic Acid [place] (0.7-2.0) mmol/L Calcium 8.3 L (8.4-10.2) mg/dL Ionized Calcium Nithin 4.2 L (4.5-5.3) mg/dL Magnesium 1.7 (1.6-2.3) mg/dL Total Bilirubin 0.5 (0.2-1.3) mg/dL AST 59 H (14-36) U/L ALT 48 H (4-34) U/L Alkaline Phosphatase 72 (38-126) U/L Creatine Kinase 1435 H* (30-135) U/L Troponin I (0.000-0.034) ng/mL Total Protein 7.6 (6.3-8.2) g/dL Albumin 4.6 (3.5-5.0) g/dL Free T4 0.94 (0.78-2.19) ng/dL Urine Color Urine Appearance (Clear) Urine pH (5.0-8.0) Ur Specific [place] (1.001-1.035) Urine Protein (Negative) Urine Glucose (UA) (Negative) Urine Ketones (Negative) Urine Blood (Negative) Urine Nitrite (Negative) Urine Bilirubin (Negative) Urine Urobilinogen (<2.0) mg/dL Ur Leukocyte Esterase (Negative) 09/18/24 09/18/24 09/18/24 Range/Units 19:03 19:03 19:39 WBC (3.8-10.6) k/uL RBC (3.80-5.40) m/uL Hgb (11.4-16.0) gm/dL Hct (34.0-46.0) % MCV (80.0-100.0) fL MCH (25.0-35.0) pg MCHC (31.0-37.0) g/dL RDW (11.5-15.5) % Plt Count (150-450) k/uL MPV Neutrophils % % Lymphocytes % % Monocytes % % Eosinophils % % Basophils % % Neutrophils # (1.3-7.7) k/uL Lymphocytes # (1.0-4.8) k/uL Monocytes # (0-1.0) k/uL Eosinophils # (0-0.7) k/uL Basophils # (0-0.2) k/uL PT (10.0-12.5) sec INR (<1.2) APTT (22.0-30.0) sec Sodium (137-145) mmol/L Potassium (3.5-5.1) mmol/L Chloride (98-107) mmol/L Carbon Dioxide (22-30) mmol/L Anion Gap mmol/L BUN (7-17) mg/dL Creatinine (0.52-1.04) mg/dL Est GFR (CKD-EPI)AfAm (>60 ml/min/1.73 sqM) Est GFR (CKD-EPI)NonAf (>60 ml/min/1.73 sqM) Glucose (74-99) mg/dL Plasma Lactic Acid [place] 1.0 (0.7-2.0) mmol/L Calcium (8.4-10.2) mg/dL Ionized Calcium Nithin (4.5-5.3) mg/dL Magnesium (1.6-2.3) mg/dL Total Bilirubin (0.2-1.3) mg/dL AST (14-36) U/L ALT (4-34) U/L Alkaline Phosphatase (38-126) U/L Creatine Kinase (30-135) U/L Troponin I <0.012 (0.000-0.034) ng/mL Total Protein (6.3-8.2) g/dL Albumin (3.5-5.0) g/dL Free T4 (0.78-2.19) ng/dL Urine Color Light Yellow Urine Appearance Clear (Clear) Urine pH 7.0 (5.0-8.0) Ur Specific [place] 1.025 (1.001-1.035) Urine Protein Negative (Negative) Urine Glucose (UA) Negative (Negative) Urine Ketones Negative (Negative) Urine Blood Negative (Negative) Urine Nitrite Negative (Negative) Urine Bilirubin Negative (Negative) Urine Urobilinogen 2.0 (<2.0) mg/dL Ur Leukocyte Esterase Negative (Negative) Disposition Clinical Impression: Elevated creatine kinase Disposition: ADMITTED IP TO THIS HOSP Is patient prescribed a controlled substance at d/c from ED?: No Referrals: Víctor Dodson DO [Primary Care Provider] - 1-2 days Time of Disposition: 21:12
[2024-09-18] MEDS: SODIUM CHLORIDE 0.9% 1,000 ML IV STA (19:22)
[2024-09-18 19:34] LABS: Basophils # (A) 0.1 k/uL (0-0.2); Basophils % (A) 1 %; Eosinophils # (A) 0.1 k/uL (0-0.7); Eosinophils % (A) 1 %; HCT 36.2 % (34.0-46.0); HGB 12.4 gm/dL (11.4-16.0); Lymphocytes # (A) 2.4 k/uL (1.0-4.8); Lymphocytes % (A) 33 %; MCH 31.3 pg (25.0-35.0); MCHC 34.3 g/dL (31.0-37.0); MCV 91.1 fL (80.0-100.0); Mean Platelet Volume 6.9; Monocytes # (A) 0.3 k/uL (0-1.0); Monocytes % (A) 5 %; Neutrophils # (A) 4.2 k/uL (1.3-7.7); Neutrophils % (A) 58 %; Platelet Count 306 k/uL (150-450); RBC 3.98 m/uL (3.80-5.40); RDW 13.9 % (11.5-15.5); WBC 7.2 k/uL (3.8-10.6)
[2024-09-18 19:46] LABS: Ionized Calcium 4.2 mg/dL (4.5-5.3)
--- NOTE | 2024-09-18 19:47 | XR ---
EXAMINATION TYPE: XR chest 2V DATE OF EXAM: 09/18/2024 7:32 PM COMPARISON: Chest radiographs from 04/07/2014 CLINICAL INDICATION: Female, 29 years old with history of Weakness; TECHNIQUE: XR chest 2V Frontal and lateral views of the chest. FINDINGS: Lungs/Pleura: There is no evidence of pleural effusion, focal consolidation, or pneumothorax. Pulmonary vascularity: Unremarkable. Heart/mediastinum: Cardiomediastinal silhouette is unremarkable. Musculoskeletal: No acute osseous pathology. IMPRESSION: No acute cardiopulmonary disease/process. [facility], , 09/18/2024 7:44 PM
[2024-09-18 19:52] LABS: Appearance,Urine Clear (Clear); Bilirubin,Urine Negative (Negative); Blood,Urine Negative (Negative); Color,Urine Light Yellow; Glucose,Urine (UA) Negative (Negative); Ketones,Urine Negative (Negative); Leukocyte Esterase,Urine Negative (Negative); Nitrite,Urine Negative (Negative); Protein,Urine Negative (Negative); Specific Gravity,Urine 1.025 (1.001-1.035)
[2024-09-18 19:55] LABS: ALT 48 U/L (4-34); AST 59 U/L (14-36); African American GFR (CKD) 86 (>60 ml/min/1.73 sqM); Albumin 4.6 g/dL (3.5-5.0); Alkaline Phosphatase 72 U/L (38-126); Anion Gap 9 mmol/L; Blood Urea Nitrogen 16 mg/dL (7-17); Calcium 8.3 mg/dL (8.4-10.2); Carbon Dioxide 28 mmol/L (22-30); Chloride 100 mmol/L (98-107); Glucose 91 mg/dL (74-99); INR 0.9 (<1.2); Magnesium 1.7 mg/dL (1.6-2.3); Non-African American GFR(CKD) 74 (>60 ml/min/1.73 sqM); Partial Thromboplastin Time 28.3 sec (22.0-30.0); Potassium 3.8 mmol/L (3.5-5.1); Prothrombin Time 10.5 sec (10.0-12.5); Sodium 137 mmol/L (137-145); Total Bilirubin 0.5 mg/dL (0.2-1.3); Total Protein 7.6 g/dL (6.3-8.2)
[2024-09-18 19:57] LABS: Creatine Kinase 1435 U/L (30-135)
[2024-09-18 20:11] LABS: T4, Free (Free Thyroxine) 0.94 ng/dL (0.78-2.19)
[2024-09-18] MEDS ORDERED: NALOXONE 0.4 MG/ML 1 ML VIAL IV PRN (21:14)
[2024-09-18] MEDS ORDERED: CALCIUM CARBONATE 500 MG CHEWABLE PO PRN (21:14)
[2024-09-18] MEDS: SODIUM CHLORIDE 0.9% 1,000 ML IV SCH (21:22)
[2024-09-18] MEDS: ACETAMINOPHEN TAB 325 MG TAB PO PRN (23:11)
[2024-09-19 06:29] LABS: Basophils % (A) 1 %; Eosinophils # (A) 0.1 k/uL (0-0.7); Eosinophils % (A) 2 %; HCT 36.7 % (34.0-46.0); HGB 12.3 gm/dL (11.4-16.0); Lymphocytes # (A) 2.7 k/uL (1.0-4.8); Lymphocytes % (A) 40 %; MCH 31.4 pg (25.0-35.0); MCHC 33.4 g/dL (31.0-37.0); MCV 94.1 fL (80.0-100.0); Mean Platelet Volume 7.1; Monocytes # (A) 0.4 k/uL (0-1.0); Monocytes % (A) 6 %; Neutrophils # (A) 3.3 k/uL (1.3-7.7); Neutrophils % (A) 50 %; Platelet Count 261 k/uL (150-450); RDW 13.9 % (11.5-15.5); WBC 6.7 k/uL (3.8-10.6)
[2024-09-19 07:28] LABS: ALT 40 U/L (4-34); AST 49 U/L (14-36); African American GFR (CKD) 87 (>60 ml/min/1.73 sqM); Albumin 3.9 g/dL (3.5-5.0); Alkaline Phosphatase 53 U/L (38-126); Anion Gap 9 mmol/L; Blood Urea Nitrogen 16 mg/dL (7-17); Calcium 7.5 mg/dL (8.4-10.2); Carbon Dioxide 27 mmol/L (22-30); Chloride 101 mmol/L (98-107); Glucose 84 mg/dL (74-99); Non-African American GFR(CKD) 75 (>60 ml/min/1.73 sqM); Sodium 137 mmol/L (137-145); Total Bilirubin 0.8 mg/dL (0.2-1.3); Total Protein 6.6 g/dL (6.3-8.2)
[2024-09-19 08:15] LABS: Creatine Kinase 1049 U/L (30-135)
[2024-09-19] MEDS ORDERED: ALPRAZolam 0.5 MG TAB PO PRN (12:35)
[2024-09-19] MEDS: buPROPion XL 300 MG TAB.ER.24H PO SCH (14:05)
[2024-09-19] MEDS: MAGNESIUM OXIDE 400 MG TAB PO SCH (16:20)
--- NOTE | 2024-09-19 21:10 | P.HPIM ---
History of Present Illness H&P Date: 09/19/24 Chief Complaint: Abnormal labs 29-year-old female, history of hypertension, hypothyroidism, present to the emergency department with concerns with elevated CPK level. Patient states she had it checked twice as an outpatient and was elevated. Mother believes the number is 1400. Patient has some mild fatigue otherwise no specific complaints. No trauma. No significant inactivity. Patient does have history of thyroid cancer with thyroidectomy just over 3 months ago. Patient did have complication of electrolyte disorders following it. Blood work reveals WBC of 7.2, hemoglobin of 12.4, platelet count of 306, sodium 137, potassium 3.8, BUNs/creatinine of 16/1.03, calcium of 8.3 with ionized calcium of 4.2, magnesium of 1.7, AST/ALT elevated at 59/48, creatinine kinase of 1435, lactic acid of 1.2, troponin less than 0.012, UA is negative Chest x-ray is negative for any acute process Review of Systems REVIEW OF SYSTEMS: CONSTITUTIONAL: No fever, no malaise, no fatigue. HEENT: No recent visual problems or hearing problems. Denied any sore throat. CARDIOVASCULAR: No chest pain, orthopnea, PND, no palpitations, no syncope. PULMONARY: No shortness of breath, no cough, no hemoptysis. GASTROINTESTINAL: No diarrhea, no nausea, no vomiting, no abdominal pain. NEUROLOGICAL: No headaches, no weakness, no numbness. HEMATOLOGICAL: Denies any bleeding or petechiae. GENITOURINARY: Denies any burning micturition, frequency, or urgency. MUSCULOSKELETAL/RHEUMATOLOGICAL: Denies any joint pain, swelling, or any muscle pain. ENDOCRINE: Denies any polyuria or polydipsia. The rest of the 14-point review of systems is negative. Past Medical History Past Medical History: Cancer, Hypertension, Thyroid Disorder Additional Past Medical History / Comment(s): thyroid ca History of Any Multi-Drug Resistant Organisms: None Reported Past Surgical History: Appendectomy, Cholecystectomy Additional Past Surgical History / Comment(s): Thyroidectomy Past Anesthesia/Blood Transfusion Reactions: No Reported Reaction Past Psychological History: Anxiety, Depression Smoking Status: Never smoker Past Alcohol Use History: Occasional Past Drug Use History: None Reported - Past Family History Mother Family Medical History: Hypertension, Thyroid Disorder Medications and Allergies Home Medications Medication Instructions Recorded Confirmed Type Ergocalciferol [Vitamin D2 50,000 unit PO JENNINGS 06/23/19 02/01/25 History (DRISDOL)] ALPRAZolam [Xanax] 0.5 mg PO BID PRN 06/06/24 09/19/24 History Lisdexamfetamine Dimesylate 70 mg PO DAILY 06/06/24 09/19/24 History [Vyvanse] buPROPion XL [Wellbutrin XL] 300 mg PO DAILY 06/06/24 09/19/24 History Magnesium Oxide [Mag-Ox] 400 mg PO TID #90 tablet 06/09/24 09/19/24 Rx calcitrioL [Rocaltrol] 0.5 mcg PO BID #60 cap 06/09/24 09/19/24 Rx Ketoconazole 2% Shampoo [Nizoral] 1 applic TOPICAL Q48H 09/19/24 09/19/24 History Levothyroxine Sodium [Synthroid] 150 mcg PO DAILY 09/19/24 09/19/24 History Allergies Allergy/AdvReac Type Severity Reaction Status Date / Time No Known Allergies Allergy Verified 09/19/24 10:28 Physical Exam Vitals: Vital Signs Temp Pulse Pulse Resp BP BP Pulse Ox 09/19/24 07:00 98.4 F 82 16 136/79 97 09/19/24 02:00 98.0 F 88 17 120/77 96 09/19/24 01:17 100 18 09/18/24 21:56 100 18 137/84 97 09/18/24 18:15 98.4 F 95 18 109/79 100 Intake and Output 09/18/24 09/19/24 09/19/24 22:59 06:59 14:59 Other: Voiding Method Toilet # Voids 1 1 Weight 120.202 kg General appearance: alert, in no apparent distress Head exam: Present: normocephalic Eye exam: Present: normal appearance Neck exam: Present: normal inspection Respiratory exam: Present: normal lung sounds bilaterally Cardiovascular Exam: Present: regular rate, normal rhythm, normal heart sounds GI/Abdominal exam: Present: soft. Absent: tenderness Extremities exam: Present: normal inspection Neurological exam: Present: alert Psychiatric exam: Present: normal affect, normal mood Skin exam: Present: normal color Results CBC & Chem 7: 09/19/24 05:27 09/19/24 05:27 Labs: Abnormal Lab Results - Last 24 Hours (Table) 09/18/24 09/19/24 Range/Units 19:03 05:27 Calcium 8.3 L 7.5 L (8.4-10.2) mg/dL Ionized Calcium Nithin 4.2 L (4.5-5.3) mg/dL AST 59 H 49 H (14-36) U/L ALT 48 H 40 H (4-34) U/L Creatine Kinase 1435 H* 1049 H* (30-135) U/L TSH >100.000 H (0.465-4.680) mIU/L Free T3 pg/mL 2.00 L (2.30-4.20) pg/mL Thrombosis Risk Factor Assmnt - Choose All That Apply Any of the Below Risk Factors Present?: Yes Each Factor Represents 1 point: Obesity (BMI >25) Other Risk Factors: No Other congenital or acquired thrombophilia - If yes, enter type in comment: No Thrombosis Risk Factor Assessment Total Risk Factor Score: 1 Thrombosis Risk Factor Assessment Level: Low Risk Assessment and Plan Assessment: 1. Rhabdomyolysis; CK is elevated at 1435 -Patient has been placed on IV fluids in form of normal saline at a rate of 130 cc an hour; will monitor strict XAVI's, daily weights, renal function electrolytes 2. Transaminitis; AST/ALT slightly elevated; will repeat liver enzymes with plans for further workup if liver enzymes are elevated 3. Hypocalcemia; patient takes Calcitrol 0.5 mcg twice daily; received supplement in ED; repeat calcium levels and make changes as needed 4. Hypothyroidism; levothyroxine 150 mcg daily 5. Anxiety/depression; continue with home dose of Xanax 0.5 mg twice daily with Wellbutrin 300 mg daily
[2024-09-20] MEDS: LEVOTHYROXINE 75 MCG TAB PO SCH (05:37)
[2024-09-20] MEDS: NON FORMULARY DRUG (Lisdexamfetamine Dimesylate [Vyvanse] 70 MG Capsule) PO SCH (08:47)
[2024-09-20 22:10] LABS: ALT 35 U/L (8-44); AST 36 U/L (13-35); Albumin 3.8 g/dL (3.8-4.9); Albumin/Globulin Ratio 1.73 Ratio (1.60-3.17); Alkaline Phosphatase 64 U/L (41-126); BUN/Creat Ratio 10.56 Ratio (12.00-20.00); Blood Urea Nitrogen 9.5 mg/dL (9.0-27.0); Calcium 6.6 mg/dL (8.7-10.3); Carbon Dioxide 23.2 mmol/L (21.6-31.8); Chloride 107 mmol/L (96-109); Globulin 2.2 g/dL (1.6-3.3); Glucose 93 mg/dL (70-110); Potassium 3.7 mmol/L (3.5-5.5); Sodium 140 mmol/L (135-145); Total Bilirubin 0.3 mg/dL (0.3-1.2)
[2024-09-20 22:41] LABS: Bilirubin, Conjugated <0.20 mg/dL (0.20-0.40); Bilirubin,Unconjugated >0.10 mg/dL (0.20-1.00); Creatine Kinase 973 U/L (26-186)
--- NOTE | 2024-09-21 00:47 | P.PN ---
Subjective Progress Note Date: 09/20/24 29-year-old female, history of hypertension, hypothyroidism, present to the emergency department with concerns with elevated CPK level. Patient states she had it checked twice as an outpatient and was elevated. Mother believes the number is 1400. Patient has some mild fatigue otherwise no specific complaints. No trauma. No significant inactivity. Patient does have history of thyroid cancer with thyroidectomy just over 3 months ago. Patient did have complication of electrolyte disorders following it. Blood work reveals WBC of 7.2, hemoglobin of 12.4, platelet count of 306, sodium 137, potassium 3.8, BUNs/creatinine of 16/1.03, calcium of 8.3 with ionized calcium of 4.2, magnesium of 1.7, AST/ALT elevated at 59/48, creatinine kinase of 1435, lactic acid of 1.2, troponin less than 0.012, UA is negative Chest x-ray is negative for any acute process --CPK slowly improving and is at 973 this morning; continue with current IVFs and repeat level tomorrow morning Objective - Vital Signs Vital signs: Vital Signs Temp 97.8 F 09/20/24 07:00 Pulse 86 09/20/24 07:00 Resp 15 09/20/24 07:00 BP 112/73 09/20/24 07:00 Pulse Ox 98 09/20/24 07:00 FiO2 Intake & Output 09/19/24 09/20/24 09/20/24 18:59 06:59 18:59 Other: Voiding Method Toilet Toilet # Voids 2 2 - Exam General appearance: alert, in no apparent distress Head exam: Present: normocephalic Eye exam: Present: normal appearance Neck exam: Present: normal inspection Respiratory exam: Present: normal lung sounds bilaterally Cardiovascular Exam: Present: regular rate, normal rhythm, normal heart sounds GI/Abdominal exam: Present: soft. Absent: tenderness Extremities exam: Present: normal inspection Neurological exam: Present: alert Psychiatric exam: Present: normal affect, normal mood Skin exam: Present: normal color - Labs CBC & Chem 7: 09/19/24 05:27 09/20/24 06:24 Assessment and Plan Assessment: 1. Rhabdomyolysis; CK is elevated at 1435 -Patient has been placed on IV fluids in form of normal saline at a rate of 130 cc an hour; will monitor strict XAVI's, daily weights, renal function electrolytes 2. Transaminitis; AST/ALT slightly elevated; will repeat liver enzymes with plans for further workup if liver enzymes are elevated 3. Hypocalcemia; patient takes Calcitrol 0.5 mcg twice daily; received supplement in ED; repeat calcium levels and make changes as needed 4. Hypothyroidism; levothyroxine 150 mcg daily 5. Anxiety/depression; continue with home dose of Xanax 0.5 mg twice daily with Wellbutrin 300 mg daily
[2024-09-21 14:16] VITALS: BP 155/93; PULSE 80; RESP 16; TEMP 97.8
== END 2024-09-21 15:10 | disposition home or self-care (01) | DRG 351 ==
LOC: EC 18:05 → 6NMEDSUR 21:17 → OBSVTOIN 09-21 07:01
PROVIDERS: ADMIT Internal Medicine; ATTEND Internal Medicine
DX: M62.82 Rhabdomyolysis (principal); E83.51 Hypocalcemia; E03.9 Hypothyroidism, unspecified; Z79.890 Hormone replacement therapy; F32.A Depression, unspecified; F41.9 Anxiety disorder, unspecified; I10 Essential (primary) hypertension; Z79.899 Other long term (current) drug therapy; Z82.49 Family history of ischemic heart disease and other diseases of the circulatory system; Z85.850 Personal history of malignant neoplasm of thyroid
CPT/HCPCS: 36415; 71046; 80048; 80053; 80076; 81003; 82330; 82550; 83605; 83735; 83970; 84100; 84439; 84443; 84481; 84484; 85025; 85610; 85730; 86038; 93005; 96360; 96361; 99285

== ENCOUNTER → 2024-10-12 | Outpatient (CLI) | payer OTHER | END | disposition home or self-care (01) | LOC: LABWHC1 11:58 | PROVIDERS: ATTEND Family Medicine | DX: M62.82 Rhabdomyolysis (principal) | CPT/HCPCS: 36415; 82550 ==

== ENCOUNTER → 2024-12-02 | Outpatient (CLI) | payer OTHER ==
[2024-12-02 15:50] LABS: ALT 28 U/L (8-44); AST 29 U/L (13-35); Albumin 4.3 g/dL (3.8-4.9); Albumin/Globulin Ratio 1.48 Ratio (1.60-3.17); Alkaline Phosphatase 71 U/L (41-126); Blood Urea Nitrogen 9.9 mg/dL (9.0-27.0); Calcium 8.7 mg/dL (8.7-10.3); Carbon Dioxide 25.2 mmol/L (21.6-31.8); Chloride 102 mmol/L (96-109); Creatine Kinase 159 U/L (26-186); Globulin 2.9 g/dL (1.6-3.3); Glucose 96 mg/dL (70-110); Magnesium 1.7 mg/dL (1.5-2.4); Potassium 4.1 mmol/L (3.5-5.5); Sodium 139 mmol/L (135-145); T4, Free (Free Thyroxine) 1.45 ng/dL (0.80-1.80); Total Bilirubin 0.4 mg/dL (0.3-1.2); Total Protein 7.2 g/dL (6.2-8.2)
[2024-12-02 15:52] LABS: HCT 42.9 % (37.2-46.3); HGB 14.2 g/dL (12.0-15.0); MCH 30.4 pg (27.0-32.0); MCHC 33.1 g/dL (32.0-37.0); MCV 91.9 FL (80.0-97.0); Mean Platelet Volume 9.9 FL (9.5-12.2); NRBC Per 100 WBC 0 X 10*3/uL (0.00-0.01); Platelet Count 305 X 10*3/uL (140-440); RBC 4.67 X 10*6/uL (4.10-5.20); RDW 12.5 % (11.5-14.5); WBC 6.79 X 10*3/uL (4.50-10.00)
[2024-12-02 15:53] LABS: Basophils # (A) 0.02 X 10*3/uL (0.00-0.10); Basophils % (A) 0.3 %; Eosinophils # (A) 0.08 X 10*3/uL (0.04-0.35); Eosinophils % (A) 1.2 %; Lymphocytes # (A) 2.44 X 10*3/uL (0.90-5.00); Lymphocytes % (A) 35.9 %; Monocytes # (A) 0.57 X 10*3/uL (0.20-1.00); Monocytes % (A) 8.4 %; Neutrophils # (A) 3.67 X 10*3/uL (1.80-7.70); Neutrophils % (A) 54.1 %
== END | disposition home or self-care (01) ==
LOC: LABWHC1 10:10
PROVIDERS: ATTEND Nurse Practitioner Family
DX: E06.3 Autoimmune thyroiditis (principal); R74.8 Abnormal levels of other serum enzymes
CPT/HCPCS: 36415; 80053; 82550; 83735; 84439; 84443; 85025

== ENCOUNTER → 2024-12-29 | Outpatient (CLI) | payer OTHER ==
[2024-12-29 18:05] LABS: Basophils # (A) 0.02 X 10*3/uL (0.00-0.10); Basophils % (A) 0.2 %; Eosinophils # (A) 0.09 X 10*3/uL (0.04-0.35); Eosinophils % (A) 1.1 %; HCT 42.3 % (37.2-46.3); HGB 13.9 g/dL (12.0-15.0); Lymphocytes # (A) 2.29 X 10*3/uL (0.90-5.00); Lymphocytes % (A) 27.5 %; MCH 29.6 pg (27.0-32.0); MCHC 32.9 g/dL (32.0-37.0); MCV 90.2 FL (80.0-97.0); Mean Platelet Volume 10.2 FL (9.5-12.2); Monocytes # (A) 0.55 X 10*3/uL (0.20-1.00); Monocytes % (A) 6.6 %; NRBC Per 100 WBC 0 X 10*3/uL (0.00-0.01); Neutrophils # (A) 5.37 X 10*3/uL (1.80-7.70); Neutrophils % (A) 64.4 %; Platelet Count 345 X 10*3/uL (140-440); RBC 4.69 X 10*6/uL (4.10-5.20); RDW 12.7 % (11.5-14.5); WBC 8.34 X 10*3/uL (4.50-10.00)
[2024-12-30 02:57] LABS: ALT 37 U/L (8-44); AST 36 U/L (13-35); Albumin 4.7 g/dL (3.8-4.9); Albumin/Globulin Ratio 1.74 Ratio (1.60-3.17); Alkaline Phosphatase 66 U/L (41-126); BUN/Creat Ratio 10.22 Ratio (12.00-20.00); Blood Urea Nitrogen 9.2 mg/dL (9.0-27.0); Calcium 8.5 mg/dL (8.7-10.3); Carbon Dioxide 23.9 mmol/L (21.6-31.8); Chloride 102 mmol/L (96-109); Creatine Kinase 234 U/L (26-186); Globulin 2.7 g/dL (1.6-3.3); Glucose 85 mg/dL (70-110); Magnesium 1.6 mg/dL (1.5-2.4); Potassium 4.3 mmol/L (3.5-5.5); Sodium 141 mmol/L (135-145); Total Bilirubin 0.5 mg/dL (0.3-1.2); Total Protein 7.4 g/dL (6.2-8.2)
[2024-12-30 02:58] LABS: T4, Free (Free Thyroxine) 1.45 ng/dL (0.80-1.80)
== END | disposition home or self-care (01) ==
LOC: LABWHC1 15:08
PROVIDERS: ATTEND Nurse Practitioner Family
DX: M79.10 Myalgia, unspecified site (principal); M25.50 Pain in unspecified joint; R53.83 Other fatigue
CPT/HCPCS: 36415; 80053; 82550; 83735; 84439; 84443; 84481; 85025

== ENCOUNTER → 2025-02-17 | Outpatient (CLI) | payer OTHER ==
[2025-02-17 18:38] LABS: Basophils # (A) 0.02 X 10*3/uL (0.00-0.10); Basophils % (A) 0.3 %; Eosinophils # (A) 0.06 X 10*3/uL (0.04-0.35); Eosinophils % (A) 0.8 %; HCT 43.2 % (37.2-46.3); HGB 14.6 g/dL (12.0-15.0); Immature Grans, Automated 0.30 %; Lymphocytes # (A) 2.14 X 10*3/uL (0.90-5.00); Lymphocytes % (A) 27.3 %; MCH 30.6 pg (27.0-32.0); MCHC 33.8 g/dL (32.0-37.0); MCV 90.6 FL (80.0-97.0); Monocytes # (A) 0.50 X 10*3/uL (0.20-1.00); Monocytes % (A) 6.4 %; NRBC Per 100 WBC 0 X 10*3/uL (0.00-0.01); Neutrophils # (A) 5.09 X 10*3/uL (1.80-7.70); Neutrophils % (A) 64.9 %; Platelet Count 326 X 10*3/uL (140-440); RBC 4.77 X 10*6/uL (4.10-5.20); RDW 13.3 % (11.5-14.5); WBC 7.83 X 10*3/uL (4.50-10.00)
--- NOTE | 2025-02-18 03:15 | HP ---
HISTORY AND PHYSICAL DATE OF SURGERY: February 18, 2025. HISTORY OF PRESENT ILLNESS: The patient is a 30-year-old 2, para 1-0-1-1, who presents to the office with a history of longstanding menorrhagia and dysfunctional uterine bleeding, which had previously been managed with Nexplanon. She has had a Nexplanon removed and is now interested in permanent sterilization and after discussion, specifically bilateral salpingectomy. She, therefore, has requested secondary to the menorrhagia and dysfunctional uterine bleeding. Laparoscopic bilateral salpingectomy with subsequent diagnostic hysteroscopy and NovaSure endometrial ablation. We did not perform an office biopsy and therefore will perform D and C at the time of surgery. She understands the risks and complications of all the procedures including the permanent nature of salpingectomy. PAST MEDICAL HISTORY: Significant for hypothyroidism, dysfunctional uterine bleeding, depression, and a history of reportedly thyroid cancer. PAST SURGICAL HISTORY: Significant for appendectomy, section, and cholecystectomy. OBSTETRICAL HISTORY: 2, para 1-0-1-1 with 1 delivery in 2018 and 1 early miscarriage. Recent method of contraception has been Nexplanon. GYNECOLOGIC HISTORY: Unremarkable except as noted in History of Present Illness. There is no apparent history of infections to include STDs. FAMILY HISTORY: Noncontributory. SOCIAL HISTORY: The patient is and is a nonsmoker. She reports occasional alcohol and no other social concerns. CURRENT MEDICATIONS: Include: 1. Wellbutrin XL 150 mg daily. 2. Vyvanse daily. 3. Xanax daily p.r.n. 4. Calcium supplementation. 5. Magnesium supplementation. 6. Vitamin D supplementation. ALLERGIES: No known drug allergies. REVIEW OF SYSTEMS: Confined to History of Present Illness. PHYSICAL EXAMINATION: VITAL SIGNS: Stable. The patient is afebrile. GENERAL: This is a well-developed, well-nourished white female, in no acute distress. HEART: Has regular rhythm and rate without murmur. LUNGS: Clear to auscultation bilaterally in all bentley. ABDOMEN: Nondistended. Has normoactive bowel sounds. Soft, nontender, without any palpable masses, hepatosplenomegaly, or hernias. EXTREMITIES: Without any cyanosis, clubbing, or edema and are nontender to palpation bilaterally. PELVIC: Examination is deferred to the operating room. ASSESSMENT: 1. Menorrhagia. 2. Undesired fertility. 3. Dysfunctional uterine bleeding. PLAN: The patient has requested laparoscopic bilateral salpingectomy with diagnostic hysteroscopy, D and C, NovaSure endometrial ablation. The risks and complications well. The procedures have been discussed in depth including the risks for bleeding, bleeding requiring transfusion, infection, injury to local structures to specifically include the bowel, bladder, and ureters for the laparoscopic portion and uterine perforation, Asherman syndrome, and subsequent hematometra for the ablation portion. She has understood all of these and agreed to proceed. We are scheduled for the above procedures as noted on February 18, 2025. MMODL / IJN: [id number] /
== END | disposition home or self-care (01) ==
LOC: LABPAT 15:38
PROVIDERS: ATTEND Obstetrics & Gynecology
DX: Z01.812 Encounter for preprocedural laboratory examination (principal); N92.0 Excessive and frequent menstruation with regular cycle
CPT/HCPCS: 85025

== ENCOUNTER 2025-02-18 07:52 | Day surgery (SDC) | payer OTHER ==
[~2025-02-18 07:52] MED LIST changes: -ACETAMINOPHEN TAB 500 MG TAB PO PRN; -DEXAMETHASONE SOD PHOSPHATE 4 MG/ML 1 ML VIAL IV ONE; -HEPARIN SODIUM,PORCINE/PF 5,000 UNIT/0.5 ML SYRINGE SQ PRN; -HYDROmorphone 0.5 MG/0.5 ML SYRINGE IVP PRN; -LACTATED RINGERS 1,000 ML IV SCH; +LIDOCAINE 1% (10MG/ML) FOR IV START INTRADERMA PRN
[2025-02-18] MEDS: IV FLUID CONTINUATION 1,000 ML IV ONE (08:24)
[2025-02-18] MEDS ORDERED: DEXAMETHASONE SOD PHOSPHATE 4 MG/ML 1 ML VIAL ONE (08:48)
[2025-02-18] MEDS ORDERED: GLYCOPYRROLATE 0.2 MG/ML 2 ML VIAL ONE (08:48)
[2025-02-18] MEDS ORDERED: LIDOCAINE 1% INJ 10MG/ML (20 ML MDV) ONE (08:48)
[2025-02-18] MEDS ORDERED: PROPOFOL 10 MG/ML 20 ML VIAL IV ONE (08:48)
[2025-02-18] MEDS ORDERED: fentaNYL (PF) 50 MCG/ML 2 ML AMP ONE (08:48)
[2025-02-18] MEDS ORDERED: diphenhydrAMINE 50 MG/ML 1 ML VIAL ONE (08:48)
[2025-02-18] MEDS ORDERED: NEOSTIGMINE 1 MG/ML 10 ML VIAL ONE (08:48)
[2025-02-18] MEDS ORDERED: KETOROLAC 15 MG/ML 1 ML VIAL ONE (08:48)
[2025-02-18] MEDS ORDERED: ROCURONIUM 10 MG/ML (5 ML VIAL) IV ONE (08:48)
[2025-02-18] MEDS ORDERED: SUCCINYLCHOLINE CHLORIDE 200 MG/10 ML VIAL IV ONE (08:48)
[2025-02-18] MEDS ORDERED: ONDANSETRON 4 MG/2 ML VIAL ONE (08:48)
[2025-02-18] MEDS: LACTATED RINGERS 1,000 ML IV SCH (08:51)
[2025-02-18] MEDS: BUPIVACAINE (PF) 0.25% 30 ML VIAL SQ ONE ×2 (09:00→09:14)
[2025-02-18] MEDS ORDERED: KETOROLAC 15 MG/ML 1 ML VIAL IVP PRN (09:55)
[2025-02-18] MEDS ORDERED: SIMETHICONE 80 MG CHEWABLE PO PRN (09:55)
[2025-02-18] MEDS ORDERED: ONDANSETRON 4 MG/2 ML VIAL IVP PRN (09:55)
[2025-02-18] MEDS ORDERED: diphenhydrAMINE 50 MG/ML 1 ML VIAL IVP PRN (09:55)
[2025-02-18] MEDS ORDERED: ACETAMINOPHEN TAB 325 MG TAB PO PRN (09:55)
[2025-02-18] MEDS ORDERED: IBUPROFEN 600 MG TAB PO PRN (09:55)
[2025-02-18] MEDS ORDERED: diphenhydrAMINE 25 MG CAP PO PRN (09:55)
[2025-02-18] MEDS ORDERED: METOCLOPRAMIDE 5 MG/ML 2 ML VIAL IVP PRN (09:55)
[2025-02-18] MEDS: HYDROmorphone 0.5 MG/0.5 ML SYRINGE IVP PRN (09:56)
[2025-02-18] MEDS ORDERED: LACTATED RINGERS 1,000 ML IV SCH (10:00)
--- NOTE | 2025-02-18 10:08 | P.OP ---
Date of Procedure: 02/18/25 Preoperative Diagnosis: #1. Dysfunctional uterine bleeding #2. Menorrhagia #3. Undesired fertility Postoperative Diagnosis: Same Procedure(s) Performed: #1. Laparoscopic bilateral salpingectomy #2. Diagnostic hysteroscopy #3. Dilation and curettage #4. NovaSure endometrial ablation Anesthesia: [place] Surgeon: Dhaval Kumar Estimated Blood Loss (ml): 5 IV fluids (ml): 600 Urine output (ml): 5 Pathology: other (1. Bilateral fallopian tubes #2. Endometrial curettings) Condition: stable Disposition: PACU Operative Findings: Preoperative pelvic examination demonstrated a 4 to 5-week midplane mobile normal shaped uterus with normal adnexa bilaterally. Intraoperatively using the laparoscope, the uterus, tubes, and ovaries were entirely normal to inspection. There was no evidence of any pathology in the pelvis to include endometriosis. The bilateral fallopian tubes were removed from the fimbriated end to the cornual insertion and sent together as a single specimen to pathology. The appendix was not seen as it appeared to be retrocecal. The small and large intestine as well as the liver and diaphragm appeared normal. Using the hysteroscope, the bilateral tubal ostia were noted and there was a moderate amount of shaggy tissue throughout the endometrial cavity. This was removed onto a Telfa in the vagina and sent for pathological diagnoses. The uterus sounded to 9 cm with a cervical length of approximately 3.5 cm. The NovaSure tool settings were a length of 5.5 cm, a width of 3.4 cm for a total power of 103 W. After a total run time of 53 seconds, the base unit read "procedure complete." The postprocedural result appeared to be excellent. The patient is a borderline at best candidate for vaginal hysterectomy. Description of Procedure: The patient was prepped and draped in usual fashion after general endotracheal anesthesia was administered by the anesthesiologist. A weighted speculum was placed and the anterior lip of the cervix grasped with a single-tooth tenaculum allowing placement of an acorn cannula for manipulation. The weighted speculum was removed and the bladder catheterized of approximately 5 mL of clear manuel urine. Attention was turned to the abdomen where a 5 mm incision was made in a vertical fold of the umbilicus allowing insertion of a 5 mm optical trocar under direct visualization without difficulty. A pneumoperitoneum was created and Trendelenburg positioning utilized. A site was selected approximately 10 cm lateral to the optical port and 3 to 4 cm beneath in the left lower quadrant where an 8 mm incision was made and a transverse plane allowing insertion of an 8 mm optical trocar under direct visualization without difficulty. A mirroring 5 mm port was placed in the right lower quadrant. The blunt probe was utilized to sweep the bowel from the pelvis. After ensuring no evidence of pathology, the left fallopian tube was grasped with a grasper at the fimbriated end and elevated allowing it to be removed from the fimbriated end to the cornual insertion using a LigaSure device. The tube was then removed through the trocar without difficulty. A similar operation was then carried out on the right side without difficulty and the tube was placed in the same container as the first tube and sent for pathological diagnoses. There was no evidence of any pathology. The remainder of the abdomen was normal in appearance as well as noted above. The pneumoperitoneum was then evacuated through the 3 trocars and the trocars removed. The incisions were closed with interrupted subcuticular stitches of 4-0 Vicryl followed by half-inch Steri-Strips placed with Mastisol. A total of 10 mL of quarter percent Marcaine without epinephrine was then equally infused between the 3 incisions. Attention was then returned to the vagina where the weighted speculum was replaced and the acorn cannula removed. The uterus sounded to 9 cm with a cervical length of 3.5 cm. Serial dilation was carried out to admit the diagnostic hysteroscope which was placed in the cavity distended with normal saline. The findings are as noted above with a moderate amount of shaggy tissue throughout the cavity and the bilateral tubal ostia were seen. The scope was set aside and a Telfa placed in the vagina. A medium sharp curette was utilized to thoroughly and circumferentially curette the tissue in the cavity onto the Telfa in the vagina. The curette was then set aside and the NovaSure tool placed inside the endometrial cavity, opened, and seated well. The settings for the tool were a length of 5.5 cm, a width of 3.4 cm for a total power of 103 W. The cavity check was attempted and passed without difficulty, the tool was enabled, and the run was started. After a total run time of 53 seconds, the base unit read "procedure complete." The tool was closed, removed, and discarded and the diagnostic hysteroscope replaced with the findings appearing to be excellent. All instrumentation was then removed. There was no ongoing bleeding from either the tenaculum site or the cervix. Estimated blood loss for the entire case was 5 mL or less. There were no complications. All sponge, instrument, and needle counts were correct. The patient is a borderline at best candidate for vaginal hysterectomy should become necessary. The patient tolerated the procedure well and proceeded to the recovery room in stable condition.
[2025-02-18 10:12] VITALS: TEMP 96.8
[2025-02-18 11:44] VITALS: BP 115/78; PULSE 68; RESP 18
== END 2025-02-18 11:51 | disposition home or self-care (01) ==
LOC: OR 07:52
PROVIDERS: ATTEND Obstetrics & Gynecology
DX: N92.0 Excessive and frequent menstruation with regular cycle (principal); F41.9 Anxiety disorder, unspecified; F32.A Depression, unspecified; Z30.2 Encounter for sterilization; Z79.890 Hormone replacement therapy; Z79.899 Other long term (current) drug therapy
CPT/HCPCS: 58661; 58563; 81025; 88305; 88302; J0330; J1200; J1100; J2710; J2405; J2003; J3010; J1885; J2704; J1171; J0665; J1596